=== PATIENT | female | born 1975 | race Caucasian/White ===

== ENCOUNTER 2017-09-07 07:11 | Inpatient (IN) ==
[2017-09-07] MEDS ORDERED: 0.9 % Sodium Chloride 1,000 ML IVC ONE (07:30)
[2017-09-07] MEDS ORDERED: Ondansetron 4 MG/2 ML VIAL IVP ONE ×2 (07:30→09:41)
[2017-09-07 08:01] LABS: Bilirubin,Urine Small (Negative); Blood,Urine Moderate (Negative); Clarity,Urine Turbid (Clear); Color,Urine Yellow (Yellow); Glucose,Urine (UA) >=1000 mg/dL (Normal); Ketones,Urine 80 mg/dL (Negative); Leukocyte Esterase,Urine Large (Negative); Nitrite,Urine Negative (Negative); PH,Urine 5.5 pH Units (5.0-8.0); Protein,Urine >=300 mg/dL (Neg-Trace); Specific Gravity,Urine > 1.030 (1.010-1.025); Urobilinogen,Urine Normal (Normal)
[2017-09-07 08:02] LABS: Bacteria,Urine Few per hpf (None-Few); Hyaline Casts,Urine Few per lpf (None-Few); Squamous Epithelial Cell,Urine Many per lpf (None-Few); WBC,Urine TNTC per hpf (0-3)
[2017-09-07 08:23] LABS: Basophils % 0.5 %; Eosinophils # 0.1 K/mcL (0.0-0.6); Eosinophils % 0.7 %; Hematocrit 39.9 % (35.3-44.9); Hemoglobin 13.7 g/dL (11.5-15.4); Immature Granulocytes % 0.5 % (0-4); Lymphocytes % 22.3 %; Mean Corpuscular HGB Conc 34.3 g/dL (31.6-35.5); Mean Corpuscular Hemoglobin 28.8 pg (28.0-33.3); Mean Platelet Volume 10.8 fL (9.4-12.4); Monocytes # 0.4 K/mcL (0.0-1.3); Neutrophils # 6.3 K/mcL (1.6-8.9); Platelet Count 208 K/mcL (140-400); Red Blood Count 4.75 M/mcL (3.82-4.97); Red Cell Distribution Width 11.9 % (11.5-14.5)
[2017-09-07 08:31] LABS: Beta-Hydroxybutyric Acid > 2.00 mmol/L (0.02-0.27)
[2017-09-07 08:39] LABS: Alanine Aminotransferase 62 Units/L (0-55); Albumin 3.5 g/dL (3.5-5.0); Alkaline Phosphatase 231 Units/L (38-126); Aspartate Amino Transferase 30 Units/L (5-34); BUN/Creatinine Ratio 13 (6-26); Bilirubin,Direct 0.3 mg/dL (0.0-0.5); Bilirubin,Indirect 0.5 mg/dL (0.0-1.2); Bilirubin,Total 0.8 mg/dL (0.2-1.2); Blood Urea Nitrogen 14 mg/dL (7-20); Calcium 9.2 mg/dL (8.6-10.8); Carbon Dioxide 26 mEq/L (19-29); Chloride 98 mEq/L (98-109); Globulin 3.6 g/dL (2.4-3.5); Glucose 398 mg/dL (70-99); Osmolality,Calculated 303 (280-300); Potassium 3.9 mEq/L (3.5-4.5); Sodium 138 mEq/L (136-145); Total Protein 7.1 g/dL (6.0-8.3); eGFR For African Americans > 60 (> 60); eGFR For Non-African Americans 55 (> 60)
[2017-09-07] MEDS ORDERED: *HR* FentaNYL (PF) 100 MCG/2 ML VIAL IVP ONE (08:40)
[2017-09-07] MEDS ORDERED: Insulin Human Regular 10 UNIT in 0.9 % Sodium Chloride 10 ML IV ONE (09:30)
--- NOTE | 2017-09-07 09:33 | Emergency Department Note ---
Disposition Clinical Impression: UTI (urinary tract infection) Disposition: Admitted As Inpatient Condition: Fair Referrals: Adilson Abdullahi, EFREN [Primary Care Provider] - Time of Disposition: 09:25 Abdominal Pain HPI - General Chief Complaint: ED Abdominal Pain Stated Complaint: "i cant stop getting SICK"/abd pain/NV Time Seen by Provider: 09/07/17 07:17 Source: patient Mode of arrival: ambulatory Limitations: no limitations Nursing Notes Reviewed: Yes Vital Signs Reviewed: Yes - History of Present Illness HPI Narrative: 42-year-old female presents to emergency Department with concerns of persistent nausea, vomiting, left lower quadrant abdominal pain. Patient states symptoms have been intermittent over the past week. This is her third visit to the emergency department for evaluation of her pain. She was initially diagnosed with a urinary tract infection, treated with ceftriaxone and Keflex, she finished her Keflex 2-3 days ago. She was seen yesterday emergency department for same symptoms, given Phenergan fluids with improvement of her nausea and she returned home. Today she states she is unable to keep down food or fluids secondary to nausea and pain. Patient reports pain is sharp and stabbing in the left lower quadrant without radiation. She denies hematochezia, melena, diarrhea, chest pain, shortness of breath, palpitations, syncope. Patient denies vaginal bleeding or vaginal discharge. Pain Scale: 9 - Related Data Home Medications Medication Instructions Recorded Confirmed Cyclobenzaprine [Flexeril] 10 mg PO TID 05/25/16 05/25/16 Insulin ASPART [Novolog] 6 unit SQ TIDAC MDD per sliding 05/25/16 05/25/16 scale Insulin Glargine [Lantus] 12 unit SQ BID 05/25/16 05/25/16 Dextroamphetamine/Amphetamine 20 mg PO BID 05/26/16 05/26/16 [Dextroamp-Amphetamin 20 mg Tab] Esomeprazole Magnesium [Nexium] 40 mg PO DAILY 05/26/16 05/26/16 Venlafaxine HCl [Venlafaxine HCl 150 mg PO DAILY 05/26/16 05/26/16 ER] diazePAM [Valium] 5 mg PO Q12HR PRN 05/26/16 05/26/16 Previous Rx's Medication Instructions Recorded Cefdinir [Omnicef] 300 mg PO BID #14 capsule 07/05/16 Promethazine [Phenergan] 25 mg PO Q8HR PRN #10 tablet 01/01/17 Promethazine [Phenergan] 25 mg PO Q8HR PRN #10 tablet 08/01/17 Cephalexin [Keflex] 500 mg PO BID #14 capsule 08/30/17 Ondansetron HCl [Zofran] 4 mg PO TID #21 tablet 08/30/17 Promethazine [Phenergan] 25 mg PO Q6HR #20 tablet 09/06/17 Allergies Allergy/AdvReac Type Severity Reaction Status Date / Time ketorolac [From Toradol] Allergy Hives Verified 09/07/17 07:14 levofloxacin [From Levaquin] Allergy Hives Verified 09/07/17 07:14 Penicillins [PCN] Allergy Hives Verified 09/07/17 07:14 Sulfa (Sulfonamide Allergy Swelling Verified 09/07/17 07:14 Antibiotics) of Lip/Tongue/Throat sumatriptan [From Imitrex] Allergy Swelling Verified 09/07/17 07:14 of Lip/Tongue/Throat metoclopramide [From Reglan] AdvReac Nausea Verified 09/07/17 07:14 ondansetron AdvReac Nausea Verified 09/07/17 07:14 [From Zofran (as hydrochloride)] All systems ED: reviewed and negative except as stated. Review of Systems: As Per HPI Constitutional: Denies: fever, chills, weakness Cardiovascular: Denies: chest pain, palpitations Respiratory: Denies: cough, dyspnea, wheezes Gastrointestinal: Reports: abdominal pain, nausea, vomiting. 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 Psychiatric history: Reports: ADHD, depression - Social History Smoking status: Never smoker Alcohol use: Reports: none Drug use: Reports: none Physical Exam General: Alert and in no acute distress Skin: Warm, dry, intact Head: Normocephalic and atraumatic Neck: Supple, trachea midline and no tenderness Cardiovascular: RRR, no murmur, normal perfusion Respiratory: CTAB, no wheezing, cough, or respiratory distress Musculoskeletal: Normal strength, no tenderness, swelling or deformity GI: Soft, tenderness to palpation of the left lower quadrant without evidence of rigidity, guarding, or rebound. nondistended. Bowel sounds present Neuro: A&O to person, place, time and situation. No focal deficits noted on exam Psychiatric: cooperative and appropriate mood and affect. - General Limitations: no limitations General appearance: alert Course Vital Signs Temperature 98.2 F 09/07/17 07:14 Pulse Rate 128 09/07/17 07:14 Respiratory Rate 20 09/07/17 07:14 Blood Pressure 115/78 09/07/17 07:14 O2 Sat by Pulse Oximetry 96 09/07/17 07:14 Temperature 98.2 F 09/07/17 07:14 Pulse Rate 118 09/07/17 09:22 Respiratory Rate 22 09/07/17 07:58 Blood Pressure 145/78 09/07/17 09:22 O2 Sat by Pulse Oximetry 96 09/07/17 09:22 Oxygen Delivery Oxygen Delivery Room Air Abdominal Pain - MDM Narrative Medical decision making narrative: CT of the abdomen shows possible mild colitis versus lack of distention of the sigmoid colon. Patient does not have hematochezia or diarrhea. Patient will be treated as a urinary tract infection. She has an anion gap of 14 however she has an elevated beta hydroxybutyric acid level. Patient will be treated with insulin and IV fluids while being treated for her UTI. Patient comfortable with the plan for admission to hospital for further care and evaluation. - Medical Records Medical records reviewed: Yes I reviewed the patient's medical records. - Lab Data Lab results reviewed: Yes I reviewed the patient's lab results. Result diagrams: 09/07/17 08:15 09/07/17 08:15 Lab Results 09/07/17 09/07/17 09/07/17 Range/Units 07:45 08:15 08:15 WBC 8.9 (4.3-11.1) K/mcL RBC 4.75 (3.82-4.97) M/mcL Hgb 13.7 (11.5-15.4) g/dL Hct 39.9 (35.3-44.9) % MCV 84.0 (83.0-100.0) fL MCH 28.8 (28.0-33.3) pg MCHC 34.3 (31.6-35.5) g/dL RDW 11.9 (11.5-14.5) % Plt Count 208 (140-400) K/mcL MPV 10.8 (9.4-12.4) fL Immature Gran % 0.5 (0-4) % Seg Neutrophils % 71.0 % Lymphocytes % 22.3 % Monocytes % 5.0 % Eosinophils % 0.7 % Basophils % 0.5 % Neutrophils # 6.3 (1.6-8.9) K/mcL Lymphocytes # 2.0 (0.6-4.6) K/mcL Monocytes # 0.4 (0.0-1.3) K/mcL Eosinophils # 0.1 (0.0-0.6) K/mcL Basophils # 0.0 (0.0-0.2) K/mcL Sodium 138 (136-145) mEq/L Potassium 3.9 (3.5-4.5) mEq/L Chloride 98 (98-109) mEq/L Carbon Dioxide 26 (19-29) mEq/L BUN 14 (7-20) mg/dL Creatinine 1.10 (0.57-1.11) mg/dL Est GFR ( Amer) > 60 (> 60) Est GFR (Non-Af Amer) 55 L (> 60) BUN/Creatinine Ratio 13 (6-26) Glucose 398 H (70-99) mg/dL Calculated Osmolality 303 H (280-300) Calcium 9.2 (8.6-10.8) mg/dL Total Bilirubin 0.8 (0.2-1.2) mg/dL Direct Bilirubin 0.3 (0.0-0.5) mg/dL Indirect Bilirubin 0.5 (0.0-1.2) mg/dL AST 30 (5-34) Units/L ALT 62 H (0-55) Units/L Alkaline Phosphatase 231 H (38-126) Units/L Serum Total Protein 7.1 (6.0-8.3) g/dL Albumin 3.5 (3.5-5.0) g/dL Globulin 3.6 H (2.4-3.5) g/dL Albumin/Globulin Ratio 1.0 L (1.1-2.2) Beta-Hydroxybutyric Acd > 2.00 H (0.02-0.27) mmol/L Urine Color Yellow (Yellow) Urine Clarity Turbid A (Clear) Urine pH 5.5 (5.0-8.0) pH Units Ur Specific [place] > 1.030 H (1.010-1.025) Urine Protein >=300 H (Neg-Trace) mg/dL Urine Glucose (UA) >=1000 H (Normal) mg/dL Urine Ketones 80 H (Negative) mg/dL Urine Blood Moderate H (Negative) Urine Nitrite Negative (Negative) Urine Bilirubin Small H (Negative) Urine Urobilinogen Normal (Normal) mg/dL Ur Leukocyte Esterase Large H (Negative) Urine Microscopic RBC 3-5 H (0-3) per hpf Urine Microscopic WBC TNTC H (0-3) per hpf Ur Squamous Epith Cells Many H (None-Few) per lpf Urine Bacteria Few (None-Few) per hpf Hyaline Casts Few (None-Few) per lpf Ur Culture Indicated? YES A (NO) - Radiology Data Radiology results reviewed: Yes I reviewed the patient's radiology results.
--- NOTE | 2017-09-07 10:44 | Internal Med History&Physical ---
Date of Encounter: 09/07/17 Time of Encounter: 10:42 Assessment and Plan (1) Acute cystitis with hematuria Current visit: Yes Status: Acute Urinalysis positive for leukocyte esterase and WBC, consistent with UTI. Additionally patient reports urinary frequency. She had a course of ceftriaxone followed by Kedhaval and her symptoms did not improve. Her urine culture from 08/30/2017 grew Escherichia coli sensitive to ceftriaxone however due to failure of previous outpatient treatment with cephalosporins I will initiate therapy with aztreonam. She does have allergies to penicillin and Levaquin and adverse reaction to Flagyl. We will follow current urine culture and sensitivities and adjust antibiotic therapy accordingly. (2) Sepsis Current visit: Yes Status: Acute Diagnosis based on tachycardia, tachypnea and UTI. We will obtain lactic acid stent. Follow-up urine culture and sensitivities, we will obtain blood cultures. Follow temperature curve and WBC trend. Additionally possible source could be colitis given left lower quadrant pain and CT abdomen and pelvis findings. We will treat with aztreonam which should cover both colitis and UTI. Qualifiers: Sepsis type: Escherichia coli Qualified Code(s): A41.51 - Sepsis due to Escherichia coli [E. coli] (3) Abdominal pain Current visit: No Status: Acute She states that the pain was not controlled with IV fentanyl. We will prescribe IV Dilaudid while she is nothing by mouth. IV Zofran and Phenergan for intractable nausea and vomiting. Qualifiers: Abdominal location: left lower quadrant Qualified Code(s): R10.32 - Left lower quadrant pain (4) Uncontrolled type 1 diabetes mellitus Current visit: Yes Status: Acute Initial workup was positive for beta hydroxybutyrate. Anion gap is 14 however serum bicarbonate is within normal range. I suspect starvation ketosis secondary to intractable vomiting and not DKA. Patient received fluids and a bolus of IV insulin in the emergency department. We will start treatment with Levemir and Humalog. We will check hemoglobin A1c. Recheck Chem-7 to ensure that the patient does not progress to DKA due to severe infection. Qualifiers: Diabetes mellitus complication status: with hyperglycemia Qualified Code(s) : E10.65 - Type 1 diabetes mellitus with hyperglycemia Internal Medicine - H&P: HPI Chief complaint: Abdominal pain Admitted From: Emergency Dept Plans for Post Hospital Care: Home History of present illness: Ms. Fish is a 42 year old female with past medical history significant for type 1 diabetes who presented to the hospital for evaluation of abdominal pain. She reports 10 out of 10 left lower quadrant sharp, stabbing abdominal pain with no radiation, associated with increased urinary frequency and intractable nausea and vomiting. Her symptoms have been going on for one week. She presented to the emergency department twice prior to today's visit and she was treated with ceftriaxone in the ED and completed a course of Keflex. She states that her symptoms continue to get worse. A 10 point review of systems was otherwise negative Past medical history as above Surgical history: Cholecystectomy, laser eye surgery and hysterectomy Family history: Negative for premature coronary artery disease in both parents. Social history: Denies tobacco alcohol and drug use. Past Med Surg Social Fam HX - Past Medical History Medical history: diabetes, migraine Psychiatric history: ADHD, depression - Past Surgical History Surgical History: cholecystectomy, hysterectomy, other (Gastric pacer) - Social History Smoking Status: Never smoker Smokeless Tobacco Status: No Alcohol use: none Drug use: none - Family History Mother Living Status: Still Living Hx Family Respiratory Disorders: Yes Father Living Status: Hx Family Cardiac Disorders: Yes Internal Medicine - H&P: Meds Cyclobenzaprine [Flexeril] 10 mg PO TID 05/25/16 [History] Insulin ASPART [Novolog] 7 unit SQ TIDAC 05/25/16 [History] Insulin Glargine [Lantus] 12 unit SQ BID 05/25/16 [History] Dextroamphetamine/Amphetamine [Dextroamp-Amphetamin 20 mg Tab] 20 mg PO BID 02/06 [History] Esomeprazole Magnesium [Nexium] 40 mg PO DAILY 05/26/16 [History] Venlafaxine HCl [Venlafaxine HCl ER] 150 mg PO DAILY 05/26/16 [History] diazePAM [Valium] 5 mg PO Q12HR PRN 05/26/16 [History] Aspirin [Lo-Dose Aspirin EC] 81 mg PO DAILY 09/07/17 [History] Atorvastatin [Lipitor] 20 mg PO DAILY 09/07/17 [History] Furosemide [Lasix] 20 mg PO BID 09/07/17 [History] Gabapentin [Neurontin] 800 mg PO QID 09/07/17 [History] OxyCODONE/APAP 5/325 [Percocet 5/325 MG] 1 tab PO Q6H PRN 09/07/17 [History] Propranolol HCl [Innopran Xl] 120 mg PO DAILY 09/07/17 [History] 3 Allergy/AdvReac Type Severity Reaction Status Date / Time ketorolac [From Toradol] Allergy Hives Verified 09/07/17 07:14 levofloxacin [From Levaquin] Allergy Hives Verified 09/07/17 07:14 Penicillins [PCN] Allergy Hives Verified 09/07/17 07:14 Sulfa (Sulfonamide Allergy Swelling Verified 09/07/17 07:14 Antibiotics) of Lip/Tongue/Throat sumatriptan [From Imitrex] Allergy Swelling Verified 09/07/17 07:14 of Lip/Tongue/Throat metoclopramide [From Reglan] AdvReac Nausea Verified 09/07/17 07:14 ondansetron AdvReac Nausea Verified 09/07/17 07:14 [From Zofran (as hydrochloride)] All Systems PM: A 10-system review of systems was performed and is negative for pertinent findings except as documented above in the HPI. - Constitutional Vitals: Temp Pulse Resp BP Pulse Ox 98.2 F 108 15 127/75 96 09/07/17 07:14 09/07/17 10:21 09/07/17 10:28 09/07/17 10:28 09/07/17 10:21 General appearance: Present: mild distress, A&O X 3 - Eye Eye exam: Present: PERRL, conjuntiva pink, sclera anicteric Pupils: Present: PERRL - Respiratory Respiratory exam: Present: CTAB. Absent: accessory muscle use, rales, rhonchi, wheezes - Cardiovascular Cardiovascular exam: Present: RRR, +S1, +S2. Absent: diastolic murmur, gallop, rubs, systolic murmur - GI/Abdominal GI/Abdominal exam: Present: normal bowel sounds, soft, tenderness (Tender to palpation in the left lower quadrant with no guarding or rebound tenderness.), no peritoneal signs. Absent: distended - Extremities Exam Extremities exam: Present: warm, radial pulses palpable and symmetrical. Absent : calf tenderness, cyanotic, pedal edema - Skin Skin exam: Present: dry, intact Internal Med - H&P Results - Labs CBC & Chem 7: 09/07/17 08:15 09/07/17 08:15
[2017-09-07] MEDS ORDERED: Acetaminophen 325 MG TABLET PO PRN (11:08)
[2017-09-07] MEDS ORDERED: *HR* OxyCODONE Immed Rel 5 MG TABLET PO PRN (11:08)
[2017-09-07] MEDS ORDERED: Naloxone 0.4 MG/ML INJ IVP PRN (11:08)
[2017-09-07] MEDS ORDERED: *HR* Dextrose 50 % in Water (Syg) 50 ML SYRINGE IVP PRN (11:13)
[2017-09-07] MEDS ORDERED: Dextrose Gel 15 GM PO PRN ×2 (11:13)
[2017-09-07] MEDS ORDERED: diazePAM 5 MG TABLET PO PRN (11:14)
[2017-09-07] MEDS: Insulin DETEMIR 100 UNIT/ML X5UNITS SQ SCH ×2 (12:06→21:34)
[2017-09-07] MEDS: Gabapentin 400 MG CAPSULE PO SCH ×3 (12:07→20:54)
[2017-09-07] MEDS: *HR* HYDROmorphone (PF) 1 MG/ML SYRINGE IVP PRN ×3 (12:07→20:56)
[2017-09-07] MEDS: 0.9 % Sodium Chloride 1,000 ML IVC SCH ×2 (12:07→20:53)
[2017-09-07 12:14] LABS: INR 1.1; Prothrombin Time 12.1 Seconds (9.4-12.1)
[2017-09-07 12:17] LABS: Activated Partial Thrombo Time 24.5 Seconds (26.0-36.0)
[2017-09-07 12:19] LABS: Hemoglobin A1C 11.5 %
[2017-09-07 12:21] LABS: BUN/Creatinine Ratio 13 (6-26); Blood Urea Nitrogen 12 mg/dL (7-20); Calcium 8.5 mg/dL (8.6-10.8); Carbon Dioxide 29 mEq/L (19-29); Chloride 101 mEq/L (98-109); Glucose 330 mg/dL (70-99); Osmolality,Calculated 297 (280-300); Potassium 3.6 mEq/L (3.5-4.5); Sodium 137 mEq/L (136-145); eGFR For African Americans > 60 (> 60); eGFR For Non-African Americans > 60 (> 60)
[2017-09-07] MEDS: Insulin LISPRO 300 UNITS/3 ML VIAL SQ SCH ×2 (13:17→17:50)
[2017-09-07] MEDS: *HR* Promethazine 25 MG/ML VIAL IVP PRN ×2 (15:20→21:03)
[2017-09-07] MEDS: Aztreonam 2,000 MG in D5% in Water (Mini-Bag+) 100 ML IVPB SCH ×2 (16:23→23:42)
[2017-09-07] MEDS: Famotidine 20 MG/2 ML VIAL IVP SCH (17:47)
[2017-09-08 04:27] LABS: Basophils % 0.6 %; Eosinophils # 0.1 K/mcL (0.0-0.6); Hematocrit 35.7 % (35.3-44.9); Immature Granulocytes % 0.6 % (0-4); Lymphocytes # 2.4 K/mcL (0.6-4.6); Lymphocytes % 34.6 %; Mean Corpuscular HGB Conc 32.8 g/dL (31.6-35.5); Mean Corpuscular Hemoglobin 28.7 pg (28.0-33.3); Mean Corpuscular Volume 87.5 fL (83.0-100.0); Mean Platelet Volume 11.2 fL (9.4-12.4); Monocytes # 0.6 K/mcL (0.0-1.3); Monocytes % 8.2 %; Neutrophils # 3.8 K/mcL (1.6-8.9); Nucleated Red Blood Cells 0.3 /100 WBC (0); Platelet Count 185 K/mcL (140-400); Red Blood Count 4.08 M/mcL (3.82-4.97)
[2017-09-08 04:35] LABS: Hemoglobin 11.7 g/dL (11.5-15.4)
[2017-09-08 04:51] LABS: Calcium 8.3 mg/dL (8.6-10.8); Potassium 3.8 mEq/L (3.5-4.5)
[2017-09-08] MEDS: *HR* Enoxaparin 40 MG/0.4 ML SYRINGE SQ SCH (05:13)
[2017-09-08] MEDS: Famotidine 20 MG/2 ML VIAL IVP SCH ×2 (05:13→16:32)
[2017-09-08] MEDS: *HR* HYDROmorphone (PF) 1 MG/ML SYRINGE IVP PRN ×3 (05:21→21:20)
[2017-09-08] MEDS: *HR* Promethazine 25 MG/ML VIAL IVP PRN ×3 (05:21→21:10)
[2017-09-08] MEDS ORDERED: Insulin LISPRO 300 UNITS/3 ML VIAL SQ STA (06:17)
[2017-09-08] MEDS: Aztreonam 2,000 MG in D5% in Water (Mini-Bag+) 100 ML IVPB SCH ×2 (08:20→16:31)
[2017-09-08] MEDS: Gabapentin 400 MG CAPSULE PO SCH ×4 (08:20→21:10)
[2017-09-08] MEDS: Venlafaxine XR (24 HR) 150 MG CAP.ER.24H PO SCH (08:20)
[2017-09-08] MEDS: Propranolol LA (24 HR) 60 MG CAP.SA.24H PO SCH (08:20)
[2017-09-08] MEDS: Insulin DETEMIR 100 UNIT/ML X5UNITS SQ SCH ×2 (09:25→21:10)
[2017-09-08] MEDS: D5% in Water 1,000 ML IVC PRN ×2 (11:29→16:35)
--- NOTE | 2017-09-08 16:28 | Internal Med Progress Note ---
Date of Encounter: 09/08/17 Time of Encounter: 16:28 - Assessment and plan (1) Colitis Current Visit: Yes Status: Acute Assessment and plan: Clinically improving continue IV abx at this time will start clear liquid diet anti emetics as needed (2) UTI (urinary tract infection) Current Visit: Yes Status: Acute Assessment and plan: Hematuria resolved history of failed outpatient therapy will continue IV abx Qualifiers: Urinary tract infection type: acute cystitis Hematuria presence: with hematuria Qualified Code(s): N30.01 - Acute cystitis with hematuria (3) Sepsis Current Visit: Yes Status: Resolved Qualifiers: Sepsis type: Escherichia coli Qualified Code(s): A41.51 - Sepsis due to Escherichia coli [E. coli] (4) Uncontrolled type 1 diabetes mellitus Current Visit: Yes Status: Acute Assessment and plan: uncontrolled DM HbA1C: 11.5 continue basal insulin sliding scale insulin algorithm as needed monitor FS and BG Qualifiers: Diabetes mellitus complication status: with hyperglycemia Qualified Code(s) : E10.65 - Type 1 diabetes mellitus with hyperglycemia (5) DVT prophylaxis Current Visit: No Status: Acute Assessment and plan: Lovenox SQ (6) Obesity (BMI 30-39.9) Current Visit: Yes Status: Chronic - Subjective Interval history: Patient seen and examined at bedside. Resting in bed and reports of improvement in her symptoms from previous day. Improvement in nausea and denies any vomiting. Denies any abd pain at this time. Reports of feeling hungry - Constitutional Vitals: Temp Pulse Resp BP Pulse Ox 98.1 F 78 14 129/84 94 09/08/17 16:23 09/08/17 16:23 09/08/17 16:23 09/08/17 16:23 09/08/17 16:23 General appearance: Present: A&O X 3, no acute distress, obese - Head Head exam: Present: atraumatic, normocephalic - Eye Eye exam: Present: conjuntiva pink, sclera anicteric - Respiratory Respiratory exam: Present: CTAB. Absent: accessory muscle use, rales, rhonchi, wheezes - Cardiovascular Cardiovascular exam: Present: RRR, +S1, +S2. Absent: diastolic murmur, gallop, rubs, systolic murmur - GI/Abdominal GI/Abdominal exam: Present: normal bowel sounds, soft, no peritoneal signs. Absent: distended, tenderness - Extremities Exam Extremities exam: Present: warm, radial pulses palpable and symmetrical. Absent : calf tenderness, cyanotic, pedal edema - Back Exam Back exam: Present: CVA tenderness (L) - Neurological Exam Neurological exam: Present: alert, oriented X3 Internal Medicine: Result - Labs CBC & Chem 7: 09/08/17 03:35 09/08/17 03:35 Labs: Short CBC 09/08/17 Range/Units 03:35 WBC 7.1 (4.3-11.1) K/mcL Hgb 11.7 D (11.5-15.4) g/dL Hct 35.7 (35.3-44.9) % Plt Count 185 (140-400) K/mcL Neutrophils # 3.8 (1.6-8.9) K/mcL BMP 09/08/17 03:35 Sodium 140 Potassium 3.8 Chloride 106 Carbon Dioxide 27 BUN 14 Creatinine 1.35 H Glucose 172 H Calcium 8.3 L - ABG Interpretation ABG results: PT/INR, D-dimer PT 12.1 Seconds (9.4-12.1) 09/07/17 11:57 Consult Discharge Plan - Plan Referrals: Adilson Abdullahi, DIRECTOR [employer]ARS [Primary Care Provider] -
[2017-09-08] MEDS ORDERED: Dextrose Gel 15 GM PO PRN ×2 (16:34)
[2017-09-08] MEDS ORDERED: D5% in Water 1,000 ML IVC PRN (16:34)
[2017-09-08] MEDS ORDERED: *HR* Dextrose 50 % in Water (Syg) 50 ML SYRINGE IVP PRN (16:34)
[2017-09-08] MEDS: 0.9 % Sodium Chloride 1,000 ML IVC SCH (16:42)
[2017-09-08] MEDS ORDERED: Insulin LISPRO 300 UNITS/3 ML VIAL SQ SCH (21:00)
[2017-09-09] MEDS: Aztreonam 2,000 MG in D5% in Water (Mini-Bag+) 100 ML IVPB SCH ×2 (00:35→09:04)
[2017-09-09] MEDS: *HR* Promethazine 25 MG/ML VIAL IVP PRN ×3 (03:06→16:54)
[2017-09-09] MEDS: *HR* HYDROmorphone (PF) 1 MG/ML SYRINGE IVP PRN ×4 (03:07→21:38)
[2017-09-09 03:57] LABS: Basophils # 0.1 K/mcL (0.0-0.2); Basophils % 0.6 %; Eosinophils # 0.3 K/mcL (0.0-0.6); Eosinophils % 3.6 %; Hematocrit 33.8 % (35.3-44.9); Hemoglobin 11.2 g/dL (11.5-15.4); Immature Granulocytes % 0.4 % (0-4); Lymphocytes # 3.5 K/mcL (0.6-4.6); Lymphocytes % 43.7 %; Mean Corpuscular HGB Conc 33.1 g/dL (31.6-35.5); Mean Corpuscular Hemoglobin 28.4 pg (28.0-33.3); Mean Corpuscular Volume 85.6 fL (83.0-100.0); Mean Platelet Volume 11.4 fL (9.4-12.4); Monocytes # 0.6 K/mcL (0.0-1.3); Monocytes % 7.2 %; Neutrophils # 3.6 K/mcL (1.6-8.9); Platelet Count 183 K/mcL (140-400); Red Blood Count 3.95 M/mcL (3.82-4.97); Red Cell Distribution Width 11.5 % (11.5-14.5); Segmented Neutrophils % 44.5 %
[2017-09-09 04:16] LABS: BUN/Creatinine Ratio 14 (6-26); Blood Urea Nitrogen 12 mg/dL (7-20); Calcium 8.6 mg/dL (8.6-10.8); Carbon Dioxide 29 mEq/L (19-29); Chloride 104 mEq/L (98-109); Glucose 93 mg/dL (70-99); Magnesium 1.6 mg/dL (1.6-2.6); Osmolality,Calculated 283 (280-300); Phosphorous 2.6 mg/dL (2.3-4.7); Potassium 3.6 mEq/L (3.5-4.5); Sodium 137 mEq/L (136-145); eGFR For African Americans > 60 (> 60); eGFR For Non-African Americans > 60 (> 60)
[2017-09-09] MEDS: *HR* Enoxaparin 40 MG/0.4 ML SYRINGE SQ SCH (05:10)
[2017-09-09] MEDS: Famotidine 20 MG/2 ML VIAL IVP SCH (05:11)
[2017-09-09] MEDS: Insulin LISPRO 300 UNITS/3 ML VIAL SQ SCH ×3 (08:58→16:59)
[2017-09-09] MEDS: Venlafaxine XR (24 HR) 150 MG CAP.ER.24H PO SCH (09:04)
[2017-09-09] MEDS: Gabapentin 400 MG CAPSULE PO SCH ×4 (09:04→21:31)
[2017-09-09] MEDS: Propranolol LA (24 HR) 60 MG CAP.SA.24H PO SCH (09:04)
[2017-09-09] MEDS: Insulin DETEMIR 100 UNIT/ML X5UNITS SQ SCH ×2 (09:15→21:31)
[2017-09-09] MEDS: 0.9 % Sodium Chloride 1,000 ML IVC SCH (11:30)
[2017-09-09] MEDS ORDERED: Insulin LISPRO 300 UNITS/3 ML VIAL SQ SCH (12:24)
--- NOTE | 2017-09-09 13:41 | Internal Med Progress Note ---
Date of Encounter: 09/09/17 Time of Encounter: 13:39 - Assessment and plan (1) Sepsis Current Visit: Yes Status: Resolved Assessment and plan: Presented with tachycardia and mild leukocytosis, likely related to dehydration and colitis. Blood and urine cultures remain negative. IV antibiotics as below. Qualifiers: Sepsis type: sepsis due to unspecified organism Qualified Code(s): A41.9 - Sepsis, unspecified organism (2) Colitis Current Visit: Yes Status: Acute Assessment and plan: Patient presented with tachycardia, tachypnea and left lower abdominal pain. CT abdomen/pelvis suggestive of mild sigmoid colitis. Has been started on IV aztreonam due to reported allergies to fluoroquinolones and penicillins. Will try IV Levaquin with Benadryl along with IV clindamycin due to allergies to penicillin and Flagyl. Patient's tachycardia was likely related to dehydration due to persistent nausea and vomiting. SIRS currently improved. (3) UTI (urinary tract infection) Current Visit: Yes Status: Ruled-out Assessment and plan: Urinalysis showed large leukocyte esterase, too numerous to count WBC but few bacteria. Urine culture shows no growth. Patient was started on IV antibiotics due to suspected UTI. Qualifiers: Urinary tract infection type: acute cystitis Hematuria presence: with hematuria Qualified Code(s): N30.01 - Acute cystitis with hematuria (4) Diabetes Current Visit: Yes Status: Chronic Assessment and plan: Patient is noted to have medical noncompliance. Blood sugars noted to be better controlled now. Continue basal bolus insulin regimen. Diabetic diet. Accu-Chek blood glucose monitoring. Qualifiers: Diabetes mellitus type: type 1 Diabetes mellitus complication status: with hyperglycemia Qualified Code(s): E10.65 - Type 1 diabetes mellitus with hyperglycemia (5) Depression Current Visit: Yes Status: Chronic Qualifiers: Depression Type: unspecified Qualified Code(s): F32.9 - Major depressive disorder, single episode, unspecified - Subjective Interval history: Feels better; improved nausea, vomiting, reports mild left lower abdominal pain. No diarrhea. fever/chills. - Constitutional Vitals: Temp Pulse Resp BP Pulse Ox 98.0 F 82 16 92/55 92 09/09/17 10:45 09/09/17 10:45 09/09/17 10:45 09/09/17 10:45 09/09/17 10:45 General appearance: Present: A&O X 3, answers questions appropriately - Respiratory Respiratory exam: Present: CTAB. Absent: accessory muscle use, rales, rhonchi, wheezes - Cardiovascular Cardiovascular exam: Present: RRR, +S1, +S2. Absent: diastolic murmur, gallop, rubs, systolic murmur - GI/Abdominal GI/Abdominal exam: Present: normal bowel sounds, soft, no peritoneal signs. Absent: distended, tenderness - Extremities Exam Extremities exam: Present: full ROM, warm, radial pulses palpable and symmetrical. Absent: calf tenderness, cyanotic, pedal edema Internal Medicine: Result - Labs CBC & Chem 7: 09/09/17 03:12 09/09/17 03:12 Labs: Short CBC 09/09/17 Range/Units 03:12 WBC 8.0 (4.3-11.1) K/mcL Hgb 11.2 L (11.5-15.4) g/dL Hct 33.8 L (35.3-44.9) % Plt Count 183 (140-400) K/mcL Neutrophils # 3.6 (1.6-8.9) K/mcL BMP 09/09/17 03:12 Sodium 137 Potassium 3.6 Chloride 104 Carbon Dioxide 29 BUN 12 Creatinine 0.84 Glucose 93 Calcium 8.6 - ABG Interpretation ABG results: PT/INR, D-dimer PT 12.1 Seconds (9.4-12.1) 09/07/17 11:57 Consult Discharge Plan - Plan Referrals: Adilson Abdullahi, MOP WORKER [Primary Care Provider] -
[2017-09-09] MEDS: Levofloxacin 500 MG/100 ML 500 MG/100 ML BAG IVPB SCH (14:27)
[2017-09-09] MEDS: Clindamycin 300 MG in D5% in Water 50 ML IVPB SCH (16:54)
[2017-09-10] MEDS: Clindamycin 300 MG in D5% in Water 50 ML IVPB SCH ×2 (00:26→10:52)
[2017-09-10] MEDS: *HR* Promethazine 25 MG/ML VIAL IVP PRN ×2 (00:32→09:05)
[2017-09-10] MEDS: *HR* Enoxaparin 40 MG/0.4 ML SYRINGE SQ SCH (06:18)
[2017-09-10] MEDS: *HR* HYDROmorphone (PF) 1 MG/ML SYRINGE IVP PRN (06:50)
[2017-09-10] MEDS: Levofloxacin 500 MG/100 ML 500 MG/100 ML BAG IVPB SCH (09:03)
[2017-09-10] MEDS: Venlafaxine XR (24 HR) 150 MG CAP.ER.24H PO SCH (09:04)
[2017-09-10] MEDS: Propranolol LA (24 HR) 60 MG CAP.SA.24H PO SCH (09:04)
[2017-09-10] MEDS: Insulin LISPRO 300 UNITS/3 ML VIAL SQ SCH ×2 (09:05→13:00)
[2017-09-10] MEDS: Gabapentin 400 MG CAPSULE PO SCH ×2 (09:05→12:59)
[2017-09-10] MEDS: Insulin DETEMIR 100 UNIT/ML X5UNITS SQ SCH (09:20)
[2017-09-10 11:03] VITALS: BP 120/78
--- NOTE | 2017-09-10 13:28 | Discharge Summary ---
Date of Encounter: 09/10/17 Time of Encounter: 13:24 - Discharge Diagnosis (1) Sepsis Priority: Primary Status: Resolved Qualifiers: Sepsis type: sepsis due to unspecified organism Qualified Code(s): A41.9 - Sepsis, unspecified organism (2) Colitis Priority: Primary Status: Acute (3) UTI (urinary tract infection) Priority: Primary Status: Ruled-out Qualifiers: Urinary tract infection type: acute cystitis Hematuria presence: with hematuria Qualified Code(s): N30.01 - Acute cystitis with hematuria (4) Diabetes Priority: Secondary Status: Chronic Qualifiers: Diabetes mellitus type: type 1 Diabetes mellitus complication status: with hyperglycemia Qualified Code(s): E10.65 - Type 1 diabetes mellitus with hyperglycemia (5) Depression Priority: Secondary Status: Chronic Qualifiers: Depression Type: unspecified Qualified Code(s): F32.9 - Major depressive disorder, single episode, unspecified - Discharge Medications Prescriptions: Clindamycin HCl 300 mg PO Q6H #20 capsule DiphenhydraMINE [Benadryl] 25 mg PO DAILY PRN #10 capsule PRN Reason: Itching Lactobacillus Acidophilus [Acidophilus] 1 each PO BID #20 capsule Levofloxacin [Levaquin] 500 mg PO DAILY #5 tablet Home Medications: Cyclobenzaprine [Flexeril] 10 mg PO TID 05/25/16 [History] Insulin ASPART [Novolog] 7 unit SQ TIDAC 05/25/16 [History] Insulin Glargine [Lantus] 12 unit SQ BID 05/25/16 [History] Dextroamphetamine/Amphetamine [Dextroamp-Amphetamin 20 mg Tab] 20 mg PO BID 02/06 [History] Esomeprazole Magnesium [Nexium] 40 mg PO DAILY 05/26/16 [History] Venlafaxine HCl [Venlafaxine HCl ER] 150 mg PO DAILY 05/26/16 [History] diazePAM [Valium] 5 mg PO Q12HR PRN 05/26/16 [History] Aspirin [Lo-Dose Aspirin EC] 81 mg PO DAILY 09/07/17 [History] Atorvastatin [Lipitor] 20 mg PO DAILY 09/07/17 [History] Furosemide [Lasix] 20 mg PO BID 09/07/17 [History] Gabapentin [Neurontin] 800 mg PO QID 09/07/17 [History] OxyCODONE/APAP 5/325 [Percocet 5/325 MG] 1 tab PO Q6H PRN 09/07/17 [History] Propranolol HCl [Innopran Xl] 120 mg PO DAILY 09/07/17 [History] Clindamycin HCl 300 mg PO Q6H #20 capsule 09/10/17 [Rx] DiphenhydraMINE [Benadryl] 25 mg PO DAILY PRN #10 capsule 09/10/17 [Rx] Lactobacillus Acidophilus [Acidophilus] 1 each PO BID #20 capsule 09/10/17 [Rx] Levofloxacin [Levaquin] 500 mg PO DAILY #5 tablet 09/10/17 [Rx] Allergies/Adverse Reactions: 3 Allergy/AdvReac Type Severity Reaction Status Date / Time ketorolac [From Toradol] Allergy Hives Verified 09/07/17 07:14 levofloxacin [From Levaquin] Allergy Hives Verified 09/07/17 07:14 Penicillins [PCN] Allergy Hives Verified 09/07/17 07:14 Sulfa (Sulfonamide Allergy Swelling Verified 09/07/17 07:14 Antibiotics) of Lip/Tongue/Throat sumatriptan [From Imitrex] Allergy Swelling Verified 09/07/17 07:14 of Lip/Tongue/Throat metoclopramide [From Reglan] AdvReac Nausea Verified 09/07/17 07:14 ondansetron AdvReac Nausea Verified 09/07/17 07:14 [From Zofran (as hydrochloride)] Date of admission: 09/07/17 11:08 Primary care physician: Adilson Abdullahi Discharging clinician: Jenny Sandhu Anticipated date of discharge: 09/10/17 - Patient Status Disposition: Home, Self-Care Condition: Good Functional capacity at discharge: independent ambulation Overall status at discharge: patient is progressing back to baseline - Discharge Instructions Instructions: Diabetes Mellitus Type 2 in Adults (DC), Sepsis (DC) Follow Up With: Adilson Abdullahi, [employer] [Primary Care Provider] - 09/26/17 2:00 pm Additional Instructions: F/up with PCP in 1-2 weeks - Diet and Activity Activity: resume usual activities as tolerated Diet: diabetic diet Hospital course: Ms. Fish is a 42 year old female with uncontrolled diabetes, was admitted with persistent nausea, vomiting and left lower abdominal pain. She was started on IV antibiotics for presumed UTI. CT abdomen/pelvis also revealed evidence of sigmoid colitis. She was noted to have multiple antibiotic allergies and was initially given IV aztreonam, which was changed to IV Levaquin and clindamycin, which she seemed to tolerate well. She was kept nothing by mouth along with IV hydration and pain control and when necessary antiemetics and supportive care. Blood and urine cultures remained negative. Patient is currently hemodynamically stable and able to tolerate oral diet. Blood sugars were noted to be elevated at the time of admission, currently better controlled with low normal fasting blood sugars. She is encouraged to be compliant with diabetic diet, insulin and frequent blood glucose monitoring and PCP follow-up and she verbalized understanding. She is otherwise medically stable for discharge today. - Time Spent with Patient Total time spent providing and/or coordinating discharge services: Greater than 30 minutes (40 min) - Constitutional Vitals: Temp Pulse Resp BP Pulse Ox 97.9 F 64 18 120/78 99 09/10/17 11:01 09/10/17 11:01 09/10/17 11:01 09/10/17 11:01 09/10/17 11:01 General appearance: Present: A&O X 3, answers questions appropriately - Respiratory Respiratory exam: Present: CTAB. Absent: accessory muscle use, rales, rhonchi, wheezes - GI/Abdominal GI/Abdominal exam: Present: normal bowel sounds, soft, no peritoneal signs. Absent: distended, tenderness
== END 2017-09-10 16:35 | disposition home or self-care (01) | DRG 872 ==
LOC: 3ANU 07:11 → EMEROO 07:11 → 3ANU 10:38 → SUATTDRO 11:08
PROVIDERS: ADMIT Internal Medicine; ATTEND Internal Medicine

== ENCOUNTER 2018-03-31 19:43 | Inpatient (IN) ==
--- NOTE | 2018-03-31 19:48 | Emergency Department Note ---
Disposition Clinical Impression: Chest pain, Abdominal pain, Hyperglycemia due to type 1 diabetes mellitus, Dehydration, Intractable nausea and vomiting, Diabetic gastroparesis associated with type 1 diabetes mellitus Disposition: Admitted As Inpatient Condition: Fair General Adult HPI - General Chief complaint: ED Chest Pain Stated complaint: chest pain Time Seen by Provider: 03/31/18 19:46 - Related Data Home Medications Medication Instructions Recorded Confirmed Cyclobenzaprine [Flexeril] 10 mg PO TID 05/25/16 03/31/18 Insulin ASPART [Novolog] 6 unit SQ TIDAC 05/25/16 03/31/18 Insulin Glargine [Lantus] 9 unit SQ QAM 05/25/16 03/31/18 Esomeprazole Magnesium [Nexium] 40 mg PO DAILY 05/26/16 03/31/18 Venlafaxine HCl [Venlafaxine HCl 150 mg PO DAILY 05/26/16 03/31/18 ER] Previous Rx's Medication Instructions Recorded Cephalexin [Keflex] 500 mg PO TID #30 capsule 03/30/18 Allergies Allergy/AdvReac Type Severity Reaction Status Date / Time ketorolac [From Toradol] Allergy Hives Verified 03/31/18 22:10 levofloxacin [From Levaquin] Allergy Hives Verified 03/31/18 22:10 Penicillins [PCN] Allergy Hives Verified 03/31/18 22:10 Sulfa (Sulfonamide Allergy Swelling Verified 03/31/18 22:10 Antibiotics) of Lip/Tongue/Throat sumatriptan [From Imitrex] Allergy Swelling Verified 03/31/18 22:10 of Lip/Tongue/Throat metoclopramide [From Reglan] AdvReac Nausea Verified 03/31/18 22:10 ondansetron AdvReac Nausea Verified 03/31/18 22:10 [From Zofran (as hydrochloride)] Past Medical History - Past Medical History Medical history: Reports: diabetes, migraine Surgical history: Reports: cholecystectomy, hysterectomy, other (Gastric pacer) Psychiatric history: Reports: ADHD, depression EXPERIMENTAL ASSEMBLER history: Reports: no EXPERIMENTAL ASSEMBLER history - Social History Smoking Status: Never smoker Smokeless Tobacco Status: No Alcohol use: Reports: none Drug use: Reports: none Course Vital Signs Temperature 96.4 F L 03/31/18 19:50 Pulse Rate 128 03/31/18 19:50 Respiratory Rate 22 03/31/18 19:50 Blood Pressure 112/88 03/31/18 19:50 O2 Sat by Pulse Oximetry 97 03/31/18 19:50 Temperature 98.3 F 03/31/18 23:40 Pulse Rate 128 03/31/18 23:40 Respiratory Rate 16 03/31/18 23:40 Blood Pressure 139/82 03/31/18 23:40 O2 Sat by Pulse Oximetry 96 03/31/18 23:40 Oxygen Delivery Oxygen Delivery Room Air Medical Decision Making - Lab Data Result diagrams: 03/31/18 20:54 03/31/18 20:54 Lab Results 03/31/18 03/31/18 03/31/18 Range/Units 20:50 20:54 20:54 WBC 12.9 H D (4.3-11.1) K/mcL RBC 4.84 (3.82-4.97) M/mcL Hgb 14.4 (11.5-15.4) g/dL Hct 41.6 (35.3-44.9) % MCV 86.0 (83.0-100.0) fL MCH 29.8 (28.0-33.3) pg MCHC 34.6 (31.6-35.5) g/dL RDW 12.4 (11.5-14.5) % Plt Count 240 (140-400) K/mcL MPV 11.2 (9.4-12.4) fL Immature Gran % 0.5 (0-4) % Seg Neutrophils % 77.1 % Lymphocytes % 15.9 % Monocytes % 6.1 % Eosinophils % 0.1 % Basophils % 0.3 % Neutrophils # 10.0 H (1.6-8.9) K/mcL Lymphocytes # 2.1 (0.6-4.6) K/mcL Monocytes # 0.8 (0.0-1.3) K/mcL Eosinophils # 0.0 (0.0-0.6) K/mcL Basophils # 0.0 (0.0-0.2) K/mcL VBG pH (7.32-7.42) pH Units VBG pCO2 (41-51) mmHg VBG pO2 (25-50) mmHg VBG HCO3 (21-27) mEq/L Sodium 132 L (136-145) mEq/L Potassium 4.3 (3.5-5.1) mEq/L Chloride 86 L (98-107) mEq/L Carbon Dioxide 22 L (23-29) mEq/L BUN 28 H (6-20) mg/dL Creatinine 1.06 (0.60-1.20) mg/dL Est GFR ( Amer) > 60 (> 60) Est GFR (Non-Af Amer) 57 L (> 60) BUN/Creatinine Ratio 26 (6-26) Glucose 437 H (70-105) mg/dL Calculated Osmolality 298 (280-300) Lactic Acid (0.5-2.2) mmol/L Calcium 9.2 (8.6-10.3) mg/dL Total Bilirubin 1.2 H (0.3-1.0) mg/dL Direct Bilirubin 0.2 (0.0-0.2) mg/dL Indirect Bilirubin 1.0 (0.0-1.2) mg/dL AST 10 L (13-39) Units/L ALT 17 (7-52) Units/L Alkaline Phosphatase 181 H (34-104) Units/L Troponin I < 0.03 (< 0.04) ng/mL Serum Total Protein 7.4 (6.4-8.9) g/dL Albumin 4.1 (3.5-5.7) g/dL Globulin 3.3 (2.4-3.5) g/dL Albumin/Globulin Ratio 1.2 (1.1-2.2) Lipase 15 (11-82) Units/L Beta-Hydroxybutyric Acd (0.02-0.27) mmol/L Urine Color Yellow (Yellow) Urine Clarity Clear (Clear) Urine pH 5.5 (5.0-8.0) pH Units Ur Specific [place] > 1.030 H (1.010-1.025) Urine Protein 30 H (Neg-Trace) mg/dL Urine Glucose (UA) >=1000 H (Normal) mg/dL Urine Ketones >=160 H (Negative) mg/dL Urine Blood Negative (Negative) Urine Nitrite Negative (Negative) Urine Bilirubin Small H (Negative) Urine Urobilinogen Normal (Normal) mg/dL Ur Leukocyte Esterase Negative (Negative) Urine Microscopic RBC 0-3 (0-3) per hpf Urine Microscopic WBC 15-30 H (0-3) per hpf Ur Squamous Epith Cells Many H (None-Few) per lpf Urine Bacteria None Seen (None-Few) per hpf Hyaline Casts None Seen (None-Few) per lpf Ur Culture Indicated? NO (NO) 03/31/18 03/31/18 03/31/18 Range/Units 20:54 20:54 22:02 WBC (4.3-11.1) K/mcL RBC (3.82-4.97) M/mcL Hgb (11.5-15.4) g/dL Hct (35.3-44.9) % MCV (83.0-100.0) fL MCH (28.0-33.3) pg MCHC (31.6-35.5) g/dL RDW (11.5-14.5) % Plt Count (140-400) K/mcL MPV (9.4-12.4) fL Immature Gran % (0-4) % Seg Neutrophils % % Lymphocytes % % Monocytes % % Eosinophils % % Basophils % % Neutrophils # (1.6-8.9) K/mcL Lymphocytes # (0.6-4.6) K/mcL Monocytes # (0.0-1.3) K/mcL Eosinophils # (0.0-0.6) K/mcL Basophils # (0.0-0.2) K/mcL VBG pH 7.40 (7.32-7.42) pH Units VBG pCO2 35 L (41-51) mmHg VBG pO2 60 H (25-50) mmHg VBG HCO3 22 (21-27) mEq/L Sodium (136-145) mEq/L Potassium (3.5-5.1) mEq/L Chloride (98-107) mEq/L Carbon Dioxide (23-29) mEq/L BUN (6-20) mg/dL Creatinine (0.60-1.20) mg/dL Est GFR ( Amer) (> 60) Est GFR (Non-Af Amer) (> 60) BUN/Creatinine Ratio (6-26) Glucose (70-105) mg/dL Calculated Osmolality (280-300) Lactic Acid 1.3 (0.5-2.2) mmol/L Calcium (8.6-10.3) mg/dL Total Bilirubin (0.3-1.0) mg/dL Direct Bilirubin (0.0-0.2) mg/dL Indirect Bilirubin (0.0-1.2) mg/dL AST (13-39) Units/L ALT (7-52) Units/L Alkaline Phosphatase (34-104) Units/L Troponin I (< 0.04) ng/mL Serum Total Protein (6.4-8.9) g/dL Albumin (3.5-5.7) g/dL Globulin (2.4-3.5) g/dL Albumin/Globulin Ratio (1.1-2.2) Lipase (11-82) Units/L Beta-Hydroxybutyric Acd > 2.00 H (0.02-0.27) mmol/L Urine Color (Yellow) Urine Clarity (Clear) Urine pH (5.0-8.0) pH Units Ur Specific [place] (1.010-1.025) Urine Protein (Neg-Trace) mg/dL Urine Glucose (UA) (Normal) mg/dL Urine Ketones (Negative) mg/dL Urine Blood (Negative) Urine Nitrite (Negative) Urine Bilirubin (Negative) Urine Urobilinogen (Normal) mg/dL Ur Leukocyte Esterase (Negative) Urine Microscopic RBC (0-3) per hpf Urine Microscopic WBC (0-3) per hpf Ur Squamous Epith Cells (None-Few) per lpf Urine Bacteria (None-Few) per hpf Hyaline Casts (None-Few) per lpf Ur Culture Indicated? (NO) Attestation Statement - Attestation Attestation: I examined this patient and my medical decision-making was reviewed with the Resident Physician. I agree with the documented findings, disposition and treatment plan as described except to the extent set forth below. [id number] time provided Patient arrives by EMS. She states she has a history of diabetic gastroparesis. She complains of nausea, vomiting, inability to tolerate oral intake. On exam she is tearful and anxious. I will review the transcribed report of her most recent ED visit dated yesterday
[2018-03-31] MEDS ORDERED: *HR* Promethazine 25 MG/ML VIAL IVP ONE (19:51)
[2018-03-31] MEDS ORDERED: 0.9 % Sodium Chloride 1,000 ML IVC ONE ×2 (19:51→21:57)
[2018-03-31] MEDS ORDERED: cefTRIAXone 2,000 MG in 0.9 % Sodium Chloride Mini Bag 100 ML IVPB ONE (20:22)
[2018-03-31 21:13] LABS: Basophils % 0.3 %; Eosinophils % 0.1 %; Hematocrit 41.6 % (35.3-44.9); Hemoglobin 14.4 g/dL (11.5-15.4); Immature Granulocytes % 0.5 % (0-4); Lymphocytes # 2.1 K/mcL (0.6-4.6); Lymphocytes % 15.9 %; Mean Corpuscular HGB Conc 34.6 g/dL (31.6-35.5); Mean Corpuscular Hemoglobin 29.8 pg (28.0-33.3); Mean Platelet Volume 11.2 fL (9.4-12.4); Monocytes # 0.8 K/mcL (0.0-1.3); Monocytes % 6.1 %; Platelet Count 240 K/mcL (140-400); Red Blood Count 4.84 M/mcL (3.82-4.97); Red Cell Distribution Width 12.4 % (11.5-14.5); Segmented Neutrophils % 77.1 %
--- NOTE | 2018-03-31 21:17 | Emergency Department Note ---
Disposition Clinical Impression: Hyperglycemia due to type 1 diabetes mellitus, Dehydration, Diabetic gastroparesis associated with type 1 diabetes mellitus Chest pain Qualifiers: Chest pain type: unspecified Qualified Code(s): R07.9 - Chest pain, unspecified Abdominal pain Qualifiers: Abdominal location: generalized Qualified Code(s): R10.84 - Generalized abdominal pain Intractable nausea and vomiting Qualifiers: Vomiting type: unspecified Qualified Code(s): R11.2 - Nausea with vomiting, unspecified Disposition: Admitted As Inpatient Condition: Fair Forms: ED Satisfaction Letter Time of Disposition: 23:12 General Adult HPI - General Chief complaint: ED Chest Pain Stated complaint: chest pain Time Seen by Provider: 03/31/18 19:46 Source: patient, EMS Limitations: no limitations Nursing Notes Reviewed: Yes Vital Signs Reviewed: Yes - History of Present Illness HPI Narrative: Patient is a 42-year-old female who presents to [facility] ED with a chief complaint of nausea, vomiting, abdominal pain, chest pain. Patient was seen here yesterday and diagnosed with a urinary tract infection. She was sent home with a antibiotic. This did grow out Escherichia coli and urine culture. However she was unable to take her antibiotics due to persistent nausea with vomiting. She has a history of type 2 diabetes and has diabetic gastroparesis. Denies any fevers or chills. States she has left- sided chest pain. No prior history of ACS. Her abdominal pain is worse in the left upper quadrant but also generalized. Onset (ago): day(s) Location: chest, abdomen Pain Severity: severe Pain Scale: 10 Quality: aching Consistency: constant Improves with: nothing Worsens with: nothing Associated symptoms: Reports: chest pain. Denies: cough, fever/chills, nausea/ vomiting, shortness of breath Treatments Prior to Arrival: none - Related Data Home Medications Medication Instructions Recorded Confirmed Cyclobenzaprine [Flexeril] 10 mg PO TID 05/25/16 03/31/18 Insulin ASPART [Novolog] 6 unit SQ TIDAC 05/25/16 03/31/18 Insulin Glargine [Lantus] 9 unit SQ QAM 05/25/16 03/31/18 Esomeprazole Magnesium [Nexium] 40 mg PO DAILY 05/26/16 03/31/18 Venlafaxine HCl [Venlafaxine HCl 150 mg PO DAILY 05/26/16 03/31/18 ER] Previous Rx's Medication Instructions Recorded Cephalexin [Keflex] 500 mg PO TID #30 capsule 03/30/18 Allergies Allergy/AdvReac Type Severity Reaction Status Date / Time ketorolac [From Toradol] Allergy Hives Verified 03/31/18 22:10 levofloxacin [From Levaquin] Allergy Hives Verified 03/31/18 22:10 Penicillins [PCN] Allergy Hives Verified 03/31/18 22:10 Sulfa (Sulfonamide Allergy Swelling Verified 03/31/18 22:10 Antibiotics) of Lip/Tongue/Throat sumatriptan [From Imitrex] Allergy Swelling Verified 03/31/18 22:10 of Lip/Tongue/Throat metoclopramide [From Reglan] AdvReac Nausea Verified 03/31/18 22:10 ondansetron AdvReac Nausea Verified 03/31/18 22:10 [From Zofran (as hydrochloride)] All systems ED: reviewed and negative except as stated. Past Medical History - Past Medical History Attestation: Yes The following information was validated with the patient. 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: no LEAD TANK MECHANIC history - Social History Smoking Status: Never smoker Smokeless Tobacco Status: No Alcohol use: Reports: none Drug use: Reports: none Physical Exam - General Limitations: no limitations General appearance: alert, in no apparent distress - Head Head exam: atraumatic, normocephalic, normal inspection - Eye Eye exam: Present: normal appearance, EOMI - ENT ENT exam: mucous membranes dry - Neck Neck exam: Present: normal inspection, full ROM, trachea midline - Chest Chest inspection: Present: normal inspection, symmetric chest wall rise - Respiratory Respiratory exam: Present: normal lung sounds bilaterally - Cardiovascular Cardiovascular exam: Present: normal rhythm, tachycardia - Abdominal Exam Abdominal exam: Present: soft, tenderness. Absent: distention, guarding, rebound, rigidity Abdominal tenderness: Present: LUQ, moderate - Extremities Exam Extremities exam: Present: normal inspection, full ROM. Absent: tenderness, pedal edema - Back Exam Back exam: Present: normal inspection, full ROM. Absent: tenderness - Neurological Exam Neurological exam: Present: alert, oriented X3 - Psychiatric Psychiatric exam: Present: normal affect, normal mood - Skin Skin exam: Present: warm, dry, intact, normal color Course Course Narrative: Patient seen and examined. Abdominal pain, persistent nausea with vomiting, recent diagnosis of urinary tract infection. We will get abdominal labs, chest x-ray, EKG. Her abdominal exam is benign that she is tender on the left side. She had a normal CT of the abdomen and pelvis yesterday. Since she was diagnosed with urinary tract infection but has been unable to keep down her antibiotics, we will order her a dose of Rocephin here. 25 mg of Phenergan ordered for nausea. - Reevaluation(s) Reevaluation #1: Patient still having nausea. We will give her a dose of 2.5 mg of Haldol to see if this can help with some of her symptoms. Since patient's BMP shows an anion gap, we will go ahead and get a VBG and serum ketones. Serum ketones were elevated at 2.00. Patient is likely very dehydrated. A second liter of IV fluids ordered. Her pH on VBG is 7.40. We will admit for dehydration, intractable nausea with vomiting, borderline DKA. I discussed with hospitalist Dr. Santos who has accepted patient for admission. Time: 23:09 Vital Signs Temperature 96.4 F L 03/31/18 19:50 Pulse Rate 128 03/31/18 19:50 Respiratory Rate 22 03/31/18 19:50 Blood Pressure 112/88 03/31/18 19:50 O2 Sat by Pulse Oximetry 97 03/31/18 19:50 Temperature 96.4 F L 03/31/18 19:50 Pulse Rate 128 03/31/18 19:50 Respiratory Rate 22 03/31/18 19:50 Blood Pressure 112/88 03/31/18 19:50 O2 Sat by Pulse Oximetry 97 03/31/18 19:50 Oxygen Delivery Oxygen Delivery Room Air Medical Decision Making - Medical Records Medical records reviewed: Yes I reviewed the patient's medical records. - Lab Data Lab results reviewed: Yes I reviewed the patient's lab results. Result diagrams: 03/31/18 20:54 Lab Results 03/31/18 Range/Units 20:54 WBC 12.9 H D (4.3-11.1) K/mcL RBC 4.84 (3.82-4.97) M/mcL Hgb 14.4 (11.5-15.4) g/dL Hct 41.6 (35.3-44.9) % MCV 86.0 (83.0-100.0) fL MCH 29.8 (28.0-33.3) pg MCHC 34.6 (31.6-35.5) g/dL RDW 12.4 (11.5-14.5) % Plt Count 240 (140-400) K/mcL MPV 11.2 (9.4-12.4) fL Immature Gran % 0.5 (0-4) % Seg Neutrophils % 77.1 % Lymphocytes % 15.9 % Monocytes % 6.1 % Eosinophils % 0.1 % Basophils % 0.3 % Neutrophils # 10.0 H (1.6-8.9) K/mcL Lymphocytes # 2.1 (0.6-4.6) K/mcL Monocytes # 0.8 (0.0-1.3) K/mcL Eosinophils # 0.0 (0.0-0.6) K/mcL Basophils # 0.0 (0.0-0.2) K/mcL - Radiology Data Radiology results reviewed: Yes I reviewed the patient's radiology results. Chest X-Ray 03/31/18 19:52 IMPRESSION: No acute cardiopulmonary abnormality. D/ / Justin Carlton / Justin Carlton Interpreting Provider: Justin Carlton - EKG Data EKG #1 EKG attestation: Yes I reviewed and interpreted this EKG. EKG results narrative: EKG done at 2014 shows sinus tachycardia with a rate of [address] elevation or depression. Inverted T wave noted in lead 3 and aVF.
[2018-03-31 21:21] LABS: Bilirubin,Urine Small (Negative); Blood,Urine Negative (Negative); Clarity,Urine Clear (Clear); Color,Urine Yellow (Yellow); Glucose,Urine (UA) >=1000 mg/dL (Normal); Ketones,Urine >=160 mg/dL (Negative); Leukocyte Esterase,Urine Negative (Negative); Nitrite,Urine Negative (Negative); PH,Urine 5.5 pH Units (5.0-8.0); Protein,Urine 30 mg/dL (Neg-Trace); Specific Gravity,Urine > 1.030 (1.010-1.025); Urobilinogen,Urine Normal (Normal)
[2018-03-31 21:25] LABS: Bacteria,Urine None Seen per hpf (None-Few); Hyaline Casts,Urine None Seen per lpf (None-Few); RBC,Urine 0-3 per hpf (0-3); Squamous Epithelial Cell,Urine Many per lpf (None-Few); WBC,Urine 15-30 per hpf (0-3)
[2018-03-31 21:30] LABS: Troponin I < 0.03 ng/mL (< 0.04)
[2018-03-31 21:31] LABS: Alanine Aminotransferase 17 Units/L (7-52); Albumin 4.1 g/dL (3.5-5.7); Albumin/Globulin Ratio 1.2 (1.1-2.2); Alkaline Phosphatase 181 Units/L (34-104); Aspartate Amino Transferase 10 Units/L (13-39); BUN/Creatinine Ratio 26 (6-26); Bilirubin,Direct 0.2 mg/dL (0.0-0.2); Bilirubin,Total 1.2 mg/dL (0.3-1.0); Blood Urea Nitrogen 28 mg/dL (6-20); Calcium 9.2 mg/dL (8.6-10.3); Carbon Dioxide 22 mEq/L (23-29); Chloride 86 mEq/L (98-107); Globulin 3.3 g/dL (2.4-3.5); Glucose 437 mg/dL (70-105); Lipase 15 Units/L (11-82); Osmolality,Calculated 298 (280-300); Potassium 4.3 mEq/L (3.5-5.1); Sodium 132 mEq/L (136-145); Total Protein 7.4 g/dL (6.4-8.9); eGFR For African Americans > 60 (> 60); eGFR For Non-African Americans 57 (> 60)
[2018-03-31] MEDS ORDERED: Haloperidol Lactate 5 MG/ML VIAL IVP ONE (21:52)
[2018-03-31 22:05] LABS: VBG HCO3 22 mEq/L (21-27); VBG PCO2 35 mmHg (41-51); VBG PO2 60 mmHg (25-50)
[2018-03-31] MEDS ORDERED: 0.9 % Sodium Chloride w KCl 20 MEQ/1,000 ML MLS IVC SCH (23:45)
[2018-03-31] MEDS ORDERED: Insulin Human Regular 100 UNIT in 0.9 % Sodium Chloride 100 ML IVC SCH (23:45)
--- NOTE | 2018-03-31 23:57 | Internal Med History&Physical ---
<Clara Urias - Last Filed: 04/01/18 00:52> Date of Encounter: 03/31/18 Time of Encounter: 23:50 Internal Medicine - H&P: HPI Chief complaint: nausea and vomiting Admitted From: Emergency Dept Plans for Post Hospital Care: Home History of present illness: Ms. Fish is a 42 year old female PMH type 1 diabetes, depression who presented to [facility] complaining of intractable nausea and vomiting since Friday and is not improving. She reported that yesterday she had come to the ED for nausea and vomiting and was found to have an asymptomatic UTI. A CT of her abdomen/ pelvis showed no acute abnormality. She was given Rocephin IV one- time dose and was discharged with Keflex. Today she returned because the nausea and vomiting had not improved along with diffuse abdominal pain. She is also complaining of chest pain that had been present since 10 AM was centrally located with no radiation and still minimally present. She has no cardiac history. She took Phenergan at home which seem to help the nausea. She reports having a hemoglobin A1C 12.0 about a year ago. She stated that she is compliant with her insulin. She denies recent illness, travel, new foods. She admitted to fevers and chills. Denied hematemesis, shortness of breath, dizziness, melena, hematechezia, constipation. She has had normal bowel movements and passing gas. She reports having a cholecystectomy but still has her appendix. Upon examination of past visits she has been admitted and seen in the ER multiple times due to hyperglycemia with nausea and vomiting. Labs in ED demonstrated VBG pH 7.4, >2.0 Beta- hydroxybutyric acid, anion gap 24. Alkaline phosphatase 181. +Urine ketones. LFT, lipase, troponin, bilirubin all within normal limits. EKG: sinus tachycardia rate 124, no acute ST elevation or depression. In the ED she was given 2 IV fluid bolus, Phenergan , Rocephin. CXR demonstrated no acute cardiopulmonary process. Urine culture from yesterday growing E. coli. She is a full code. Past Med Surg Social Fam HX - Past Medical History Medical history: diabetes, migraine Psychiatric history: ADHD, depression - Past Surgical History Surgical History: cholecystectomy, hysterectomy, other (Gastric pacer) - Social History Smoking Status: Never smoker Smokeless Tobacco Status: No Alcohol use: none Drug use: none - Family History Mother Living Status: Still Living Hx Family Cardiac Disorders: Yes Hx Family Respiratory Disorders: Yes Hx Family Cancer: Yes Hx Family GI Disorders: No Hx Family Endocrine Disorder: Yes Hx Family Neuromuscular Disorders: No Hx Family Neurologic Disorders: No Hx Family Autoimmune Disorders: No Father Living Status: Hx Family Cardiac Disorders: Yes Hx Family Respiratory Disorders: No Hx Family Cancer: Yes Hx Family GI Disorders: No Hx Family Endocrine Disorder: No Hx Family Neuromuscular Disorders: No Hx Family Neurologic Disorders: No Hx Family HEENT Disorders: Yes (Anuerysm of head) Hx Family Autoimmune Disorders: No Internal Medicine - H&P: Meds Cyclobenzaprine [Flexeril] 10 mg PO TID 05/25/16 [History] Insulin ASPART [Novolog] 6 unit SQ TIDAC 05/25/16 [History] Insulin Glargine [Lantus] 9 unit SQ QAM 05/25/16 [History] Esomeprazole Magnesium [Nexium] 40 mg PO DAILY 05/26/16 [History] Venlafaxine HCl [Venlafaxine HCl ER] 150 mg PO DAILY 05/26/16 [History] Cephalexin [Keflex] 500 mg PO TID #30 capsule 03/30/18 [Rx] 3 Allergy/AdvReac Type Severity Reaction Status Date / Time ketorolac [From Toradol] Allergy Hives Verified 03/31/18 22:10 levofloxacin [From Levaquin] Allergy Hives Verified 03/31/18 22:10 Penicillins [PCN] Allergy Hives Verified 03/31/18 22:10 Sulfa (Sulfonamide Allergy Swelling Verified 03/31/18 22:10 Antibiotics) of Lip/Tongue/Throat sumatriptan [From Imitrex] Allergy Swelling Verified 03/31/18 22:10 of Lip/Tongue/Throat metoclopramide [From Reglan] AdvReac Nausea Verified 03/31/18 22:10 ondansetron AdvReac Nausea Verified 03/31/18 22:10 [From Zofran (as hydrochloride)] All Systems PM: A 10-system review of systems was performed and is negative for pertinent findings except as documented above in the HPI. - Constitutional Constitutional: chills, fever(s) - EENT Eyes: no change in vision Nose, mouth and throat: dry mouth - Cardiovascular Cardiovascular ROS IM: chest pain, no diaphoresis, no edema, no palpitations - Respiratory Respiratory: no cough, no dyspnea, no hemoptysis, no wheezing - Gastrointestinal Gastrointestinal: abdominal pain, nausea, vomiting, no constipation, no diarrhea , no hematemesis, no hematochezia, no melena - Genitourinary Genitourinary: no dysuria, no flank pain, no hematuria, no urinary frequency, no urinary urgency - Integumentary Integumentary IM: no erythema, no pruritus, no rash - Constitutional Vitals: Temp Pulse Resp BP Pulse Ox 98.3 F 128 16 139/82 96 03/31/18 23:40 03/31/18 23:40 03/31/18 23:40 03/31/18 23:40 03/31/18 23:40 Exam: Gen.: Vitals noted. No acute distress. AAOx3 HEENT: oropharynx clear, Normocephalic, atraumatic Cardiac: RRR, no murmur, +S1/S2 Pulmonary: CTA bilaterally, no wheezes, rales or rhonchi, equal chest expansion Abdomen: soft, diffuse tender, Bowel sounds noted, no guarding MSK: ROM intact, no joint swelling noted Extremities: no BLE edema, nontender calf, no cyanosis or clubbing Neuro: A&Ox3, moves all extremities, no focal deficits Psych: Appropriate mood and behavior Internal Med - H&P Results - Labs CBC & Chem 7: 03/31/18 20:54 03/31/18 20:54 - Assessment and plan (1) DKA (diabetic ketoacidoses) Current Visit: Yes Status: Acute Assessment and plan: DKA likely likely secondary to multiple factors such as patient noncompliance with diabetes management and recent diagnosis of UTI. Patient reported nausea and vomiting since Friday that has not improved. Presented to ED yesterday and was diagnosed with asymptomatic UTI and discharged with Keflex. Returned to ED today due to intractable nausea and vomiting with abdominal pain. Given 2 IVF bolus in ED Anion gap 24, beta hydroxybutyric acid >2.0 urine ketones VBG pH 7.4 -normal potassium 4.3 WBC 12.9, afebrile, tachycardic 128. Unlikely to be septic continue to monitor -started insulin drip -IVF NaCl w/ KCl rate 250 -Phenergan for nausea -ordered Hgb A1C -NPO -AM BMP and Mg Qualifiers: Qualified Code(s): E10.10 - Type 1 diabetes mellitus with ketoacidosis without coma (2) Abdominal pain Current Visit: Yes Status: Acute Assessment and plan: Abdominal pain likely muscular strain secondary to nausea and vomiting for multiple days. Abdominal exam soft, diffusely tender, bowel sounds present, no guarding. CT abdomen/pelvis yesterday showed no acute abnormality. LFT, bilirubin, lipase WNL lactic acid 1.3 alkaline phosphatase 181 (chronically elevated after review of past levels) -Recheck alkaline phosphatase and bone specific alkaline phosphatase in a.m. ( Patient has had a cholecystectomy however due to elevated alkaline phosphatase chronically consider possible bile duct obstruction) -STAT test Qualifiers: Abdominal location: generalized Qualified Code(s): R10.84 - Generalized abdominal pain (3) UTI (urinary tract infection) Current Visit: No Status: Ruled-out Assessment and plan: Treated for a UTI yesterday in ED. Urinalysis positive and urine culture growing E. coli. Was given one dose Rocephin in ED and discharged with Keflex yesterday. Will continue treatment of asymptomatic UTI since this is in setting of DKA. Urinalysis: + urine ketones, negative for leukocyte esterase and nitrite -Will continue Rocephin -awaiting urine culture sensitivity Qualifiers: Urinary tract infection type: acute cystitis Hematuria presence: with hematuria Qualified Code(s): N30.01 - Acute cystitis with hematuria (4) Intractable nausea and vomiting Current Visit: Yes Status: Acute Assessment and plan: Likely secondary to DKA -continue Phenergan Qualifiers: Vomiting type: unspecified Qualified Code(s): R11.2 - Nausea with vomiting , unspecified (5) Uncontrolled type 1 diabetes mellitus Current Visit: No Status: Acute Assessment and plan: She reported that last hemoglobin A1C about a year ago was 12.0 She does not see an foot doctor, but follows with her PCP in [place]. She has been to the ED and admitted multiple times due to hyperglycemia with associated nausea/ vomiting and abdominal pain. Qualifiers: Diabetes mellitus complication status: with hyperglycemia Qualified Code(s) : E10.65 - Type 1 diabetes mellitus with hyperglycemia (6) Depression Current Visit: No Status: Chronic Assessment and plan: History of depression taking venlafaxine continue home medication once reconciled by pharmacy Qualifiers: Depression Type: unspecified Qualified Code(s): F32.9 - Major depressive disorder, single episode, unspecified (7) DVT prophylaxis Current Visit: No Status: Acute Assessment and plan: EPCD - Time Spent With Patient Total time spent is greater than 50% in coordination of care (as documented) at patient's floor/unit and/or counseling patient: <Maikol Jacobs - Last Filed: 04/01/18 02:37> Date of Encounter: 04/01/18 Time of Encounter: 01:00 - Constitutional Constitutional: anorexia, fatigue - EENT Nose, mouth and throat: dry mouth, no nasal congestion, no sinus pressure, no sore throat - Cardiovascular Cardiovascular ROS IM: no chest pain, no dyspnea - Respiratory Respiratory: no cough, no dyspnea, no hemoptysis, no wheezing - Gastrointestinal Gastrointestinal: abdominal pain, nausea, vomiting, no constipation, no diarrhea , no hematemesis, no hematochezia, no melena - Genitourinary Genitourinary: no dysuria, no flank pain, no hematuria - Musculoskeletal Musculoskeletal ROS IM: muscle cramps, muscle weakness, no myalgias - Integumentary Integumentary IM: no rash - Neurological Neurological ROS: no dizziness, no focal weakness, no frequent falls, no headache(s) - Psychiatric Psychiatric: anxiety, no depression - Endocrine Endocrine IM: polydipsia, polyuria - Allergic/Immunologic Allergic/Immunologic: GI upset with certain foods, no wheezing - Constitutional Vitals: Temp Pulse Resp BP Pulse Ox 98.3 F 128 16 139/82 96 03/31/18 23:40 03/31/18 23:40 03/31/18 23:40 03/31/18 23:40 03/31/18 23:40 General appearance: Present: mild distress, A&O X 3, answers questions appropriately Exam: mild distress due to nausea and dehydration; looks dehydrated - Head Head exam: Present: atraumatic, normal inspection - Eye Eye exam: Present: EOMI, normal appearance, PERRL. Absent: scleral icterus Pupils: Present: normal accommodation - ENT ENT exam: Present: mucous membranes dry, normal exam - Neck Neck exam general surgery: Present: full ROM, supple. Absent: lymphadenopathy, tenderness, nuchal rigidity, thyromegaly - Respiratory Respiratory exam: Present: CTAB. Absent: rales, rhonchi, wheezes - Cardiovascular Cardiovascular exam: Present: RRR, +S1, +S2, tachycardia. Absent: diastolic murmur, systolic murmur - GI/Abdominal GI/Abdominal exam: Present: normal bowel sounds, soft, tenderness (mild diffuse) , no peritoneal signs. Absent: guarding, hepatomegaly, mass, rebound - Extremities Exam Extremities exam: Present: full ROM, warm, radial pulses palpable and symmetrical. Absent: calf tenderness, joint swelling, pedal edema, tenderness - Back Exam Back exam: Present: normal inspection. Absent: CVA tenderness (L), CVA tenderness (R) - Neurological Exam Neurological exam: Present: alert, CN II-XII intact, oriented X3, no focal deficits - Psychiatric Psychiatric exam: Present: anxious. Absent: depressed - Skin Skin exam: Present: dry, warm. Absent: rash Internal Med - H&P Results - Labs CBC & Chem 7: 03/31/18 20:54 04/01/18 01:30 Labs: BMP 04/01/18 01:30 Sodium 135 L Potassium 4.0 Chloride 97 L Carbon Dioxide 17 L BUN 24 H Creatinine 0.99 Glucose 350 H Calcium 7.9 L Liver Function 04/01/18 Range/Units 01:30 Alkaline Phosphatase 153 H (34-104) Units/L - Attending Attestation I discussed the patient ATKA, past medical history, review systems, and exam findings with Dr. Lopez. I then saw and examined patient independently. Patient appears to be clinically dehydrated and in mild distress secondary to nausea and vomiting and some mild diffuse abdominal pain. She has evidence of DKA and significant dehydration on exam. She will be placed on IV fluids, insulin drip, and DKA orders per protocol. Additionally, I asked Dr. Lopez to order a serum test for the remote possibility of as etiology of her nausea and vomiting. Her qualitative serum test came back positive. I called and confirmed this with laboratory and they stated it was weakly positive. I did not realize patient had a hysterectomy previously. I asked Dr. Lopez to confirm with patient and patient did confirm she had hysterectomy. Furthermore, she had CT scan imaging yesterday which revealed absence of the uterus. I called and discussed with Dr. Dennis, and he suspects this may be false positive. He recommended ordering a urine test as well. If this is positive, she may have a remote underlying hCG secreting tumor and may need further workup. We will continue treatment for DKA and close electrolyte management presently. Meanwhile, we will await quantitative serum hCG and urine hCG testing as well. She may need further workup pending these lab results. Regarding her UTI, I agree with the Vivin and we'll follow her urine culture from yesterday. Patient does not follow with endocrinology, and her last hemoglobin A1c was roughly 12. Her glucose control is suboptimal and she has had frequent ER visits for hyperglycemia. I recommend she establish with an foot doctor for better glucose monitoring and diabetes control. Other than my above comments and noted physical exam findings, I agree with Dr. Lopez's assessment and plan. - Time Spent With Patient Total time spent is greater than 50% in coordination of care (as documented) at patient's floor/unit and/or counseling patient:
[2018-03-31] MEDS ORDERED: *HR* Dextrose 50 % in Water (Syg) 50 ML SYRINGE IVP PRN (23:58)
[2018-03-31] MEDS ORDERED: Insulin Regular, Human 100 UNIT/ML IV PRN (23:58)
[2018-04-01] MEDS ORDERED: Pantoprazole 40 MG VIAL IVP ONE (00:28)
[2018-04-01] MEDS ORDERED: 0.9 % Sodium Chloride w KCl 20 MEQ/1,000 ML MLS IVC PRN (00:53)
[2018-04-01] MEDS ORDERED: Naloxone 0.4 MG/ML INJ IVP PRN (00:54)
[2018-04-01] MEDS ORDERED: 0.9 % Sodium Chloride w KCl 20 MEQ/1,000 ML MLS IVC ONE (00:58)
[2018-04-01] MEDS ORDERED: D5% in 0.45% NACL 1,000 ML IVC PRN (01:33)
[2018-04-01] MEDS ORDERED: D5% in 0.45% NACL w KCl 20 MEQ/1,000 ML MLS IVC PRN (01:33)
[2018-04-01 01:59] LABS: BUN/Creatinine Ratio 24 (6-26); Blood Urea Nitrogen 24 mg/dL (6-20); Calcium 7.9 mg/dL (8.6-10.3); Carbon Dioxide 17 mEq/L (23-29); Chloride 97 mEq/L (98-107); Glucose 350 mg/dL (70-105); Osmolality,Calculated 298 (280-300); Sodium 135 mEq/L (136-145); eGFR For African Americans > 60 (> 60); eGFR For Non-African Americans > 60 (> 60)
[2018-04-01] MEDS ORDERED: Insulin Human Regular 100 UNIT in 0.9 % Sodium Chloride 100 ML IVC SCH (03:30)
[2018-04-01] MEDS: *HR* Promethazine 25 MG/ML VIAL IVP PRN ×4 (03:39→23:26)
[2018-04-01] MEDS: Acetaminophen 325 MG TABLET PO PRN ×2 (04:45→20:04)
[2018-04-01] MEDS: *HR* Heparin 5,000 UNIT/ML VIAL SQ SCH ×2 (04:45→18:06)
[2018-04-01 05:23] LABS: VBG HCO3 25 mEq/L (21-27); VBG PCO2 43 mmHg (41-51); VBG PH 7.38 pH Units (7.32-7.42); VBG PO2 91 mmHg (25-50)
[2018-04-01 05:28] LABS: BUN/Creatinine Ratio 26 (6-26); Blood Urea Nitrogen 23 mg/dL (6-20); Calcium 8.2 mg/dL (8.6-10.3); Carbon Dioxide 25 mEq/L (23-29); Chloride 101 mEq/L (98-107); Glucose 158 mg/dL (70-105); Magnesium 1.7 mg/dL (1.6-2.6); Osmolality,Calculated 291 (280-300); Potassium 3.5 mEq/L (3.5-5.1); Sodium 137 mEq/L (136-145); eGFR For African Americans > 60 (> 60); eGFR For Non-African Americans > 60 (> 60)
[2018-04-01] MEDS ORDERED: Insulin DETEMIR 100 UNIT/ML X5UNITS SQ SCH (06:33)
[2018-04-01 07:17] LABS: Hematocrit 34.7 % (35.3-44.9); Hemoglobin 11.9 g/dL (11.5-15.4); Mean Corpuscular HGB Conc 34.3 g/dL (31.6-35.5); Mean Corpuscular Hemoglobin 29.2 pg (28.0-33.3); Mean Platelet Volume 10.8 fL (9.4-12.4); Platelet Count 198 K/mcL (140-400); Red Blood Count 4.08 M/mcL (3.82-4.97); Red Cell Distribution Width 12.5 % (11.5-14.5)
[2018-04-01] MEDS: cefTRIAXone 1,000 MG in Water for inj. (sterile) 20 ML 10 ML IVP SCH (07:30)
[2018-04-01] MEDS: Insulin LISPRO 300 UNITS/3 ML VIAL SQ SCH ×3 (07:31→17:54)
[2018-04-01] MEDS: 0.9 % Sodium Chloride 1,000 ML IVC SCH ×2 (09:40→18:11)
[2018-04-01 10:29] LABS: Estimated Average Glucose 315 mg/dl; Hemoglobin A1C 12.6 %
[2018-04-01] MEDS ORDERED: Isovue-370 500 ML INFUS..BTL IV ONE (10:33)
[2018-04-01] MEDS ORDERED: Nitroglycerin 0.4 MG TAB.SUBL SL PRN (12:15)
[2018-04-01] MEDS: Nitroglycerin 0.4 MG TAB.SUBL SL ONE ×2 (12:18→12:24)
[2018-04-01] MEDS ORDERED: traMADol 50 MG TABLET PO STA (12:35)
--- NOTE | 2018-04-01 14:24 | Internal Med Progress Note ---
<Yohannes Bingham T - Last Filed: 04/01/18 16:28> Date of Encounter: 04/01/18 - Time Spent With Patient Total time spent is greater than 50% in coordination of care (as documented) at patient's floor/unit and/or counseling patient: - Constitutional Vitals: Temp Pulse Resp BP Pulse Ox 98.8 F 120 18 151/91 94 04/01/18 11:09 04/01/18 12:26 04/01/18 11:09 04/01/18 11:09 04/01/18 11:09 Internal Medicine: Result - Labs CBC & Chem 7: 04/01/18 06:55 04/01/18 04:00 Labs: Short CBC 04/01/18 Range/Units 06:55 WBC 11.8 H (4.3-11.1) K/mcL Hgb 11.9 D (11.5-15.4) g/dL Hct 34.7 L (35.3-44.9) % Plt Count 198 (140-400) K/mcL BMP 04/01/18 04:00 Sodium 137 Potassium 3.5 Chloride 101 Carbon Dioxide 25 BUN 23 H Creatinine 0.90 Glucose 158 H Calcium 8.2 L Cardiac Enzymes 04/01/18 Range/Units 12:44 Troponin I < 0.03 (< 0.04) ng/mL - ABG Interpretation ABG results: PT/INR, D-dimer D-Dimer 1193 ng/mLFEU (0-500) H 04/01/18 09:31 - Impressions Impressions Chest CTA 04/01/18 10:33 IMPRESSION: 1. No findings of pulmonary embolism. 2. Increased extensive circumferential wall thickening and mucosal hyperenhancement in the mid to distal thoracic esophagus suggestive of esophagitis. Underlying malignancy cannot be excluded. Consider endoscopy. 3. Mild cardiomegaly, minimal interstitial pulmonary edema, trace right pleural effusion, findings that could be related to congestive heart failure. 4. Minimal bronchial wall thickening potentially due to pulmonary vascular congestion, reactive airways disease, or bronchitis. D/ / Shaji Cisneros MD / Shaji Cisneros MD Interpreting Provider: Shaji Cisneros MD Consult Discharge Plan - Plan Referrals: Adilson Abdullahi, [employer] [Primary Care Provider] - 04/13/18 4:30 pm () - Attending Attestation I examined this patient and my medical decision-making was reviewed with the Resident Physician on 04/01/18. I agree with the documented findings, disposition and treatment plan as described except to the extent set forth below. Seen and examined at bedside. 42-year-old female with depression admitted for uncontrolled diabetes mellitus, with hyperglycemia and anion gap metabolic acidosis, UTI. No DKA. She has made clinical improvement. Her only complaint at time will review his chest pain left-sided nonradiating and reproducible. CT angiogram was out pulmonary embolism but shows esophagitis. EKG showed sinus tachycardia without ST segment changes. She has T-wave inversions in lead 3 and aVF. These are chronic compared to EKG from 08/2017. Troponin negative 2. Continue current management, consult gastroenterology for possible EGD in the morning, patient likely has a psychotic component to her symptoms. test is false positive. Rest of details as in the resident physician's documentation <Shaji Faust - Last Filed: 04/01/18 18:05> Date of Encounter: 04/01/18 Time of Encounter: 08:00 - Assessment and plan (1) Hyperglycemia due to type 1 diabetes mellitus Current Visit: Yes Status: Acute Assessment and plan: Hyperglycemia on arrival, concern for DKA vs HHS The patient had high anion gap, serum ketones, and glucose >500. pH was 7.4 Started on insulin drip and patient's glucose and gap returned to normal range Nausea and vomiting ceased following correction of serum anion gap and glucose We will transition the patient back to Basal + SSI for management Check BMP in AM (2) Chest pain Current Visit: Yes Status: Acute Assessment and plan: Atypical chest pain which is likely more abdominal pain There is reproducibility of pain with palpation EKG shows no acute changes, troponin negative The patient has remained tachycardic, and complains of calf pain. PE is in differential DDimer was positive, so I ordered a CTA Chest which was negative for PE CTA did demonstrate increased extensive circumferential wall thickening and mucosal hyperenhancement in the mid to distal thoracic esophagus suggestive of esophagitis. Consult to GI for endoscopy Qualifiers: Chest pain type: unspecified Qualified Code(s): R07.9 - Chest pain, unspecified (3) Abnormal CT of the abdomen Current Visit: Yes Status: Acute Assessment and plan: CT Shows 1. No findings of pulmonary embolism. 2. Increased extensive circumferential wall thickening and mucosal hyperenhancement in the mid to distal thoracic esophagus suggestive of esophagitis. Underlying malignancy cannot be excluded. Consider endoscopy. 3. Mild cardiomegaly, minimal interstitial pulmonary edema, trace right pleural effusion, findings that could be related to congestive heart failure. 4. Minimal bronchial wall thickening potentially due to pulmonary vascular congestion, reactive airways disease, or bronchitis. We will consult GI for endoscopy (4) Intractable nausea and vomiting Current Visit: Yes Status: Resolved Assessment and plan: Intractable nausea/vomiting related to possible DKA vs. HHS Resolved Qualifiers: Vomiting type: unspecified Qualified Code(s): R11.2 - Nausea with vomiting , unspecified (5) Acute cystitis with hematuria Current Visit: Yes Status: Acute Assessment and plan: Acute cystitis as demonstrated on UA in ED Continue on Rocephin, day 2 (6) Abdominal pain Current Visit: Yes Status: Acute Assessment and plan: Epigastric and lower left quadrant abdominal pain CTA Chest shows esophagitis, which is likely cause of epigastric pain Increase PPI to BID dosing Consult to GI for scope in the morning NPO at Midnight Qualifiers: Abdominal location: generalized Qualified Code(s): R10.84 - Generalized abdominal pain (7) Dehydration Current Visit: Yes Status: Acute Assessment and plan: Volume depletion secondary to DKA vs HHS, Improved Continue maintenance fluids (8) DVT prophylaxis Current Visit: No Status: Acute Assessment and plan: SQ Heparin - Time Spent With Patient Total time spent is greater than 50% in coordination of care (as documented) at patient's floor/unit and/or counseling patient: - Subjective Interval history: The patient is seen and examined at bedside. She is highly emotional and complains that she is still having severe chest pains which are relentless and unremitting. It is substernal chest pain which does not radiate, and is not associated with any symptoms such as SOB. She says that it has been constant since she's arrived, and nothing has helped. She otherwise says that her n/v have mostly resolved. - Constitutional Vitals: Temp Pulse Resp BP Pulse Ox 98.8 F 120 18 151/91 94 04/01/18 11:09 04/01/18 12:26 04/01/18 11:09 04/01/18 11:09 04/01/18 11:09 Exam: Gen: Vitals noted. Mildly distressed, teary eyed on exam HEENT: PERRL/EOMI, oropharynx clear, Normocephalic, atraumatic Neck: Supple. No adenopathy. Cardiac: RRR, no murmur, +S1/S2 Pulmonary: CTA bilaterally, no wheezes, rales or rhonchi, equal chest expansion Abdomen: soft, Minimally tender to palpation globally, BS noted, no guarding Back: Nontender throughout. MSK: ROM intact, no joint swelling noted Extremities: no BLE edema, complains of significant tenderness on palpation of right calf Neuro: A&Ox3, moves all extremities, no focal deficits Psych: Emotionally labile with over the top reactions to every statement Internal Medicine: Result - Labs CBC & Chem 7: 04/01/18 06:55 04/01/18 04:00 Labs: Short CBC 04/01/18 Range/Units 06:55 WBC 11.8 H (4.3-11.1) K/mcL Hgb 11.9 D (11.5-15.4) g/dL Hct 34.7 L (35.3-44.9) % Plt Count 198 (140-400) K/mcL BMP 04/01/18 04:00 Sodium 137 Potassium 3.5 Chloride 101 Carbon Dioxide 25 BUN 23 H Creatinine 0.90 Glucose 158 H Calcium 8.2 L Cardiac Enzymes 04/01/18 Range/Units 12:44 Troponin I < 0.03 (< 0.04) ng/mL - ABG Interpretation ABG results: PT/INR, D-dimer D-Dimer 1193 ng/mLFEU (0-500) H 04/01/18 09:31 - Impressions Impressions Chest CTA 04/01/18 10:33
[2018-04-01] MEDS: Pantoprazole 40 MG VIAL IVP SCH (18:07)
--- NOTE | 2018-04-02 05:28 | Electrocardiograph Report ---
[address] [address] Test Date: 2018-03-31 Pat Name: Moreno Fish Department: [id number] Room: 2N02 Gender: F Patient Transport Officer: SHYANNE : 1975 Requested By: Anila Schroeder Order Number: [id number] Reading MD: Anshu Oconnor Measurements Intervals [place] Rate: 124 P: 54 W[place]: 116 QRS: 75 QRSD: 89 T: -1 QT: 336 QTc: 410 Interpretive Statements SINUS TACHYCARDIA WITH SHORT WY INTERVAL NONSPECIFIC T-WAVE ABNORMALITY Electronically Signed On 04-02-2018 5:26:28 EDT by Anshu Oconnor
[2018-04-02] MEDS: Pantoprazole 40 MG VIAL IVP SCH ×2 (05:47→17:23)
[2018-04-02] MEDS: *HR* Promethazine 25 MG/ML VIAL IVP PRN ×4 (05:47→19:35)
[2018-04-02] MEDS: GI Cocktail 40 ML EACH PO ONE ×2 (05:47→05:52)
[2018-04-02] MEDS: *HR* Heparin 5,000 UNIT/ML VIAL SQ SCH ×2 (05:48→17:23)
[2018-04-02] MEDS ORDERED: Pantoprazole 40 MG VIAL IVP SCH (06:30)
[2018-04-02 06:40] LABS: Basophils % 0.2 %; Eosinophils % 0.2 %; Hematocrit 35.8 % (35.3-44.9); Hemoglobin 12.2 g/dL (11.5-15.4); Immature Granulocytes % 0.5 % (0-4); Lymphocytes # 1.8 K/mcL (0.6-4.6); Lymphocytes % 14.8 %; Mean Corpuscular HGB Conc 34.1 g/dL (31.6-35.5); Mean Corpuscular Hemoglobin 29.7 pg (28.0-33.3); Mean Corpuscular Volume 87.1 fL (83.0-100.0); Mean Platelet Volume 11.4 fL (9.4-12.4); Monocytes # 0.9 K/mcL (0.0-1.3); Neutrophils # 9.5 K/mcL (1.6-8.9); Nucleated Red Blood Cells 0.2 /100 WBC (0); Platelet Count 175 K/mcL (140-400); Red Blood Count 4.11 M/mcL (3.82-4.97); Red Cell Distribution Width 12.3 % (11.5-14.5); Segmented Neutrophils % 77.3 %
[2018-04-02 06:48] LABS: Alanine Aminotransferase 12 Units/L (7-52); Albumin 3.4 g/dL (3.5-5.7); Albumin/Globulin Ratio 1.2 (1.1-2.2); Alkaline Phosphatase 136 Units/L (34-104); Aspartate Amino Transferase 10 Units/L (13-39); BUN/Creatinine Ratio 14 (6-26); Bilirubin,Total 0.8 mg/dL (0.3-1.0); Blood Urea Nitrogen 11 mg/dL (6-20); Calcium 8.3 mg/dL (8.6-10.3); Carbon Dioxide 14 mEq/L (23-29); Chloride 98 mEq/L (98-107); Globulin 2.8 g/dL (2.4-3.5); Glucose 366 mg/dL (70-105); Osmolality,Calculated 290 (280-300); Potassium 4.2 mEq/L (3.5-5.1); Sodium 133 mEq/L (136-145); Total Protein 6.2 g/dL (6.4-8.9); eGFR For African Americans > 60 (> 60); eGFR For Non-African Americans > 60 (> 60)
--- NOTE | 2018-04-02 07:15 | Internal Med Progress Note ---
<Shaij Faust - Last Filed: 04/02/18 13:20> Date of Encounter: 04/02/18 Time of Encounter: 07:13 - Assessment and plan (1) Chest pain Current Visit: Yes Status: Acute Assessment and plan: Atypical chest pain which is likely more abdominal pain There is reproducibility of pain with palpation EKG shows no acute changes, troponin negative The patient has remained tachycardic, and complains of calf pain. PE is in differential DDimer was positive, so I ordered a CTA Chest which was negative for PE CTA did demonstrate increased extensive circumferential wall thickening and mucosal hyperenhancement in the mid to distal thoracic esophagus suggestive of esophagitis. Consult to GI for endoscopy, plan for EGD today Qualifiers: Chest pain type: unspecified Qualified Code(s): R07.9 - Chest pain, unspecified (2) Abnormal CT of the abdomen Current Visit: Yes Status: Acute Assessment and plan: CT Shows 1. No findings of pulmonary embolism. 2. Increased extensive circumferential wall thickening and mucosal hyperenhancement in the mid to distal thoracic esophagus suggestive of esophagitis. Underlying malignancy cannot be excluded. Consider endoscopy. 3. Mild cardiomegaly, minimal interstitial pulmonary edema, trace right pleural effusion, findings that could be related to congestive heart failure. 4. Minimal bronchial wall thickening potentially due to pulmonary vascular congestion, reactive airways disease, or bronchitis. We will consult GI for endoscopy, plan for today (3) Intractable nausea and vomiting Current Visit: Yes Status: Resolved Assessment and plan: Intractable nausea/vomiting related to possible DKA Initially resolved, however patient has started having vomiting again with DKA beginning again Continue phenergan Qualifiers: Vomiting type: unspecified Qualified Code(s): R11.2 - Nausea with vomiting , unspecified (4) Acute cystitis with hematuria Current Visit: Yes Status: Acute Assessment and plan: Acute cystitis as demonstrated on UA in ED Continue on Rocephin, day 3 (5) Abdominal pain Current Visit: Yes Status: Acute Assessment and plan: Epigastric and lower left quadrant abdominal pain CTA Chest shows esophagitis, which is likely cause of epigastric pain Increase PPI to BID dosing Consult to GI for EGD today NPO at Midnight Qualifiers: Abdominal location: generalized Qualified Code(s): R10.84 - Generalized abdominal pain (6) Dehydration Current Visit: Yes Status: Acute Assessment and plan: Volume depletion secondary to DKA I did give 1L Normal saline this morning in response to continued tachycardia The patient appears to be back in DKA, will continue aggressive fluid repletion (7) DVT prophylaxis Current Visit: No Status: Acute Assessment and plan: SQ Heparin (8) DKA (diabetic ketoacidoses) Current Visit: Yes Status: Acute Assessment and plan: Hyperglycemia on arrival, concern for DKA vs HHS The patient had high anion gap, serum ketones, and glucose >500. pH was 7.4 Started on insulin drip and patient's glucose and gap returned to normal range Nausea and vomiting ceased following correction of serum anion gap and glucose We will transition the patient back to Basal + SSI for management Check BMP in AM Update 04/02 BMP this morning showed acidosis with Bicarb 15, F/U VBG showed pH 7.22 Glucose has been continuing to elevate overnight, continues to be tachycardic Patient is complaining of increased nausea and vomiting, and some more abdominal pain I did give 1L bolus this morning prior to results of VBG I will restart the DKA protocol --5U IV Insulin --Insulin drip titration --q4h BMP while monitoring gap, initial BMP pending --250mL IV fluids per protocol Qualifiers: Diabetes mellitus type: type 1 Diabetes mellitus complication detail: without coma Qualified Code(s): E10.10 - Type 1 diabetes mellitus with ketoacidosis without coma - Time Spent With Patient Total time spent is greater than 50% in coordination of care (as documented) at patient's floor/unit and/or counseling patient: - Subjective Interval history: The patient is seen and examined at bedside. She remains emotionally labile, however she seems much more stable today that previously. She is still having significant nausea and vomiting, which worsened overnight. She does say her chest pain has largely resolved. - Constitutional Vitals: Temp Pulse Resp BP Pulse Ox 98.7 F 119 16 158/93 96 04/02/18 03:35 04/02/18 03:35 04/02/18 03:35 04/02/18 03:35 04/02/18 03:35 General appearance: Present: mild distress, A&O X 3, answers questions appropriately Exam: Gen: Vitals noted. emotional on exam, but not teary eyed HEENT: PERRL/EOMI, oropharynx clear, Normocephalic, atraumatic Neck: Supple. No adenopathy. Cardiac: RRR, no murmur, +S1/S2 Pulmonary: CTA bilaterally, no wheezes, rales or rhonchi, equal chest expansion Abdomen: soft, Minimally tender to palpation globally (lower abdomen > upper), BS noted, no guarding Back: Nontender throughout. MSK: ROM intact, no joint swelling noted Extremities: no BLE edema, complains of significant tenderness on palpation of right calf Neuro: A&Ox3, moves all extremities, no focal deficits Psych: Remains emotional however appears to be significantly improved where mood is concerned Internal Medicine: Result - Labs CBC & Chem 7: 04/02/18 06:05 04/02/18 06:05 Labs: Short CBC 04/01/18 04/02/18 Range/Units 06:55 06:05 WBC 11.8 H 12.3 H (4.3-11.1) K/mcL Hgb 11.9 D 12.2 (11.5-15.4) g/dL Hct 34.7 L 35.8 (35.3-44.9) % Plt Count 198 175 (140-400) K/mcL Neutrophils # 9.5 H (1.6-8.9) K/mcL BMP 04/02/18 06:05 Sodium 133 L Potassium 4.2 Chloride 98 Carbon Dioxide 14 L BUN 11 Creatinine 0.76 Glucose 366 H Calcium 8.3 L Cardiac Enzymes 04/01/18 04/01/18 Range/Units 12:44 22:03 Troponin I < 0.03 < 0.03 (< 0.04) ng/mL Liver Function 04/02/18 Range/Units 06:05 Total Bilirubin 0.8 (0.3-1.0) mg/dL AST 10 L (13-39) Units/L ALT 12 (7-52) Units/L Alkaline Phosphatase 136 H (34-104) Units/L Albumin 3.4 L (3.5-5.7) g/dL - ABG Interpretation ABG results: PT/INR, D-dimer D-Dimer 1193 ng/mLFEU (0-500) H 04/01/18 09:31 - Impressions Impressions Chest CTA 04/01/18 10:33 IMPRESSION: 1. No findings of pulmonary embolism. 2. Increased extensive circumferential wall thickening and mucosal hyperenhancement in the mid to distal thoracic esophagus suggestive of esophagitis. Underlying malignancy cannot be excluded. Consider endoscopy. 3. Mild cardiomegaly, minimal interstitial pulmonary edema, trace right pleural effusion, findings that could be related to congestive heart failure. 4. Minimal bronchial wall thickening potentially due to pulmonary vascular congestion, reactive airways disease, or bronchitis. D/ / Shaji Cisneros MD / Shaji Cisneros MD Interpreting Provider: Shaji Cisneros MD Consult Discharge Plan - Plan Referrals: Adilson Abdullahi, ELECTRIC METER TESTER HELPER [Primary Care Provider] - 04/13/18 4:30 pm () <Yohannes Bingham - Last Filed: 04/02/18 16:42> Date of Encounter: 04/02/18 - Assessment and plan (1) Abnormal CT of the abdomen Current Visit: Yes Status: Acute (2) DVT prophylaxis Current Visit: No Status: Acute (3) Acute cystitis with hematuria Current Visit: Yes Status: Acute (4) Abdominal pain Current Visit: Yes Status: Acute Qualifiers: Abdominal location: generalized Qualified Code(s): R10.84 - Generalized abdominal pain (5) Chest pain Current Visit: Yes Status: Acute Qualifiers: Chest pain type: unspecified Qualified Code(s): R07.9 - Chest pain, unspecified (6) Dehydration Current Visit: Yes Status: Acute (7) Intractable nausea and vomiting Current Visit: Yes Status: Resolved Qualifiers: Vomiting type: unspecified Qualified Code(s): R11.2 - Nausea with vomiting , unspecified (8) DKA (diabetic ketoacidoses) Current Visit: Yes Status: Acute Qualifiers: Diabetes mellitus type: type 1 Diabetes mellitus complication detail: without coma Qualified Code(s): E10.10 - Type 1 diabetes mellitus with ketoacidosis without coma - Time Spent With Patient Total time spent is greater than 50% in coordination of care (as documented) at patient's floor/unit and/or counseling patient: - Constitutional Vitals: Temp Pulse Resp BP Pulse Ox 99.2 F 120 17 136/91 98 04/02/18 11:14 04/02/18 11:14 04/02/18 11:14 04/02/18 11:14 04/02/18 11:14 Internal Medicine: Result - Labs CBC & Chem 7: 04/02/18 06:05 04/02/18 15:13 Labs: Short CBC 04/02/18 Range/Units 06:05 WBC 12.3 H (4.3-11.1) K/mcL Hgb 12.2 (11.5-15.4) g/dL Hct 35.8 (35.3-44.9) % Plt Count 175 (140-400) K/mcL Neutrophils # 9.5 H (1.6-8.9) K/mcL BMP 04/02/18 04/02/18 04/02/18 06:05 12:36 15:13 Sodium 133 L 133 L 134 L Potassium 4.2 4.2 4.2 Chloride 98 105 105 Carbon Dioxide 14 L 14 L 15 L BUN 11 12 10 Creatinine 0.76 0.74 0.73 Glucose 366 H 232 H 134 H Calcium 8.3 L 8.0 L 8.1 L Cardiac Enzymes 04/01/18 Range/Units 22:03 Troponin I < 0.03 (< 0.04) ng/mL Liver Function 04/02/18 Range/Units 06:05 Total Bilirubin 0.8 (0.3-1.0) mg/dL AST 10 L (13-39) Units/L ALT 12 (7-52) Units/L Alkaline Phosphatase 136 H (34-104) Units/L Albumin 3.4 L (3.5-5.7) g/dL - ABG Interpretation ABG results: PT/INR, D-dimer D-Dimer 1193 ng/mLFEU (0-500) H 04/01/18 09:31 - Attending Attestation I examined this patient and my medical decision-making was reviewed with the Resident Physician on 04/02/18. I agree with the documented findings, disposition and treatment plan as described except to the extent set forth below. Seen and examined at bedside. For EGD today, continue insulin drip Rest as in resident physiciann's documentation
[2018-04-02] MEDS ORDERED: 0.9 % Sodium Chloride 1,000 ML IVC ONE (07:18)
[2018-04-02] MEDS ORDERED: Insulin LISPRO 300 UNITS/3 ML VIAL SQ SCH ×3 (08:07→22:45)
[2018-04-02] MEDS: Venlafaxine XR (24 HR) 150 MG CAP.ER.24H PO SCH (09:33)
[2018-04-02] MEDS: Lisinopril 20 MG TABLET PO SCH (09:33)
[2018-04-02] MEDS: cefTRIAXone 1,000 MG in Water for inj. (sterile) 20 ML 10 ML IVP SCH (09:33)
[2018-04-02 10:52] LABS: VBG HCO3 12 mEq/L (21-27); VBG PCO2 29 mmHg (41-51); VBG PH 7.22 pH Units (7.32-7.42); VBG PO2 196 mmHg (25-50)
[2018-04-02] MEDS ORDERED: Insulin Regular, Human 100 UNIT/ML IV PRN (11:25)
[2018-04-02] MEDS ORDERED: 0.9 % Sodium Chloride 1,000 ML IVC SCH ×2 (11:30)
[2018-04-02] MEDS ORDERED: 0.45 % Sodium Chloride w/KCl 20 MEQ/1,000 ML MLS IVC SCH ×2 (11:30)
[2018-04-02] MEDS ORDERED: Insulin Human Regular 100 UNIT in 0.9 % Sodium Chloride 100 ML IVC SCH (11:30)
--- NOTE | 2018-04-02 12:47 | Gastroenterology Consult Note ---
<Shaji Garay Jacqui - Last Filed: 04/02/18 12:43> Date of Encounter: 04/02/18 Time of Encounter: 11:00 - Assessment and plan (1) Abdominal pain Current Visit: No Status: Resolved Assessment and plan: Chest CTA shows increased extensive circumferential wall thickening and mucosal hyperenhancement in the mid to distal thoracic esophagus suggestive of esophagitis. Underlying malignancy cannot be excluded. Plan for EGD today. Keep NPO. Continue PPI. Patient educated regarding lifestyle modifications including: (1) avoidance of foods that may precipitate reflux (eg, coffee, alcohol, chocolate, fatty foods) . (2) avoidance of acidic foods that may precipitate heartburn (eg, citrus, carbonated drinks, spicy foods). (3) adoption of behaviors that may reduce esophageal acid exposure (see weight loss, smoking cessation, raising the head of the bed, and avoiding recumbency for 2-3 hours after meals). Qualifiers: Abdominal location: epigastric Qualified Code(s): R10.13 - Epigastric pain (2) Nausea & vomiting Current Visit: Yes Status: Acute Assessment and plan: Continue antiemetics, PPI, IV fluids. Plan for EGD today. Keep NPO. Qualifiers: Vomiting type: unspecified Vomiting Intractability: non-intractable Qualified Code(s): R11.2 - Nausea with vomiting, unspecified - Time Spent With Patient Total time spent is greater than 50% in coordination of care (as documented) at patient's floor/unit and/or counseling patient: GI History of Present Illness - Data of Consult Patient: new to practice Consult date: 04/02/18 Requesting Physician: Bri Santos MD - Consult Narrative Reason for consult: Esophagitis by CT scan History of present illness: Ms. Fihs is a 42 year old female with PMHx of type 1 diabetes, depression, s /p hysterectomy who presented to the ED with c/o intractable nausea and vomiting since Friday and is not improving. She had come to the ED on 03/30 for nausea and vomiting and was found to have an asymptomatic UTI. A CT of her abdomen/ pelvis showed no acute abnormality. She was given Rocephin IV one-time dose and was discharged with Keflex. She returned to the ED because her nausea and vomiting had not improved along with diffuse abdominal pain. She is also complaining of chest pain. She took Phenergan at home which seem to help the nausea. She reports having a hemoglobin A1C 12.0 about a year ago. She stated that she is compliant with her insulin. She denies hematemesis, shortness of breath, dizziness, melena, hematechezia, constipation. Serum test positive, beta HCG 6, and urine test negative, but pt is s/p hysterectomy. Procedures: EGD 02/05/2014 Dr. Ambrosio: LA Grade B esophagitis, ulcerative esophagitis, hiatus hernia, gastritis. EGD 12/17/2012 Dr. Sheppard: Severe erosive ulcerative esophagitis. NSAIDs: None Anticoagulation: None Past Med Surg Social Fam HX - Past Medical History Medical history: diabetes, migraine Psychiatric history: ADHD, depression - Past Surgical History Surgical History: cholecystectomy, hysterectomy, other (Gastric pacer) - Social History Smoking Status: Never smoker Smokeless Tobacco Status: No Alcohol use: none Drug use: none - Family History Mother Living Status: Still Living Hx Family Cardiac Disorders: Yes Hx Family Respiratory Disorders: Yes Hx Family Cancer: Yes Hx Family GI Disorders: No Hx Family Endocrine Disorder: Yes Hx Family Neuromuscular Disorders: No Hx Family Neurologic Disorders: No Hx Family Autoimmune Disorders: No Father Living Status: Hx Family Cardiac Disorders: Yes Hx Family Respiratory Disorders: No Hx Family Cancer: Yes Hx Family GI Disorders: No Hx Family Endocrine Disorder: No Hx Family Neuromuscular Disorders: No Hx Family Neurologic Disorders: No Hx Family HEENT Disorders: Yes (Anuerysm of head) Hx Family Autoimmune Disorders: No - Gastrointestinal Gastrointestinal: Present: as per HPI - Constitutional Constitutional: as per HPI - EENT Eyes: as per HPI Ears: Present: as per HPI Nose, mouth and throat: Present: as per HPI - Cardiovascular Cardiovascular ROS: Present: as per HPI - Respiratory Respiratory IM: Present: as per HPI - Genitourinary Genitourinary: Absent: change in color, Urinary frequency - Neurological ROS Neurological GI: Present: as per HPI - Hematologic/Lymphatic Hematologic/Lymphatic pediatric: Present: as per HPI - Musculoskeletal Musculoskeletal ROS GI: Present: as per HPI - Integumentary Integumentary GI: Present: as per HPI - Psychiatric ROS Psychiatric GI: Present: as per HPI - Endocrine Endocrine IM: Present: as per HPI - Constitutional Vitals: Temp Pulse Resp BP Pulse Ox 99.2 F 120 17 136/91 98 04/02/18 11:14 04/02/18 11:14 04/02/18 11:14 04/02/18 11:14 04/02/18 11:14 General appearance: Present: cooperative, A&O X 3, no acute distress, answers questions appropriately - Head Head exam: Present: atraumatic, normocephalic - Eye Eye exam: Present: normal appearance, sclera anicteric - ENT ENT exam: Present: mucous membranes dry - Neck Neck exam general surgery: Present: normal inspection, trachea midline - Respiratory Respiratory exam: Present: CTAB. Absent: rales, rhonchi - Cardiovascular Cardiovascular exam: Present: RRR, +S1, +S2 - GI/Abdominal GI/Abdominal exam: Present: soft, tenderness (generalized), no peritoneal signs. Absent: distended, firm, guarding - Rectal Rectal exam: Present: deferred - Extremities Exam Extremities exam: Present: warm - Neurological Exam Neurological exam: Present: no focal deficits - Psychiatric Psychiatric exam: Present: normal affect, normal mood - Skin Skin exam: Present: dry, intact, normal color, warm Results - Labs CBC & Chem 7: 04/02/18 06:05 04/02/18 06:05 Labs: Last Result Calcium 8.3 mg/dL (8.6-10.3) L 04/02/18 06:05 Troponin I < 0.03 ng/mL (< 0.04) 04/01/18 22:03 Entire Visit Hgb 12.2 g/dL (11.5-15.4) 04/02/18 06:05 Hct 35.8 % (35.3-44.9) 04/02/18 06:05 Total Bilirubin 0.8 mg/dL (0.3-1.0) 04/02/18 06:05 AST 10 Units/L (13-39) L 04/02/18 06:05 ALT 12 Units/L (7-52) 04/02/18 06:05 Lipase 15 Units/L (11-82) 03/31/18 20:54 - ABG ABG results: PT/INR, D-dimer D-Dimer 1193 ng/mLFEU (0-500) H 04/01/18 09:31 Consult Discharge Plan - Plan Referrals: Adilson Abdullahi, CONT[employer] LAND CONSULTANT [Primary Care Provider] - 04/13/18 4:30 pm () <Srinivas Sheppard - Last Filed: 04/02/18 17:40> Date of Encounter: 04/02/18 Time of Encounter: 11:00 - Time Spent With Patient Total time spent is greater than 50% in coordination of care (as documented) at patient's floor/unit and/or counseling patient: GI History of Present Illness - Data of Consult Requesting Physician: Bri Santos MD - Consult Narrative History of present illness: Ms. Fish is a 42 year old female - Constitutional Vitals: Temp Pulse Resp BP Pulse Ox 99.2 F 120 17 136/91 98 04/02/18 11:14 04/02/18 11:14 04/02/18 11:14 04/02/18 11:14 04/02/18 11:14 Results - Labs CBC & Chem 7: 04/02/18 06:05 04/02/18 15:13 Labs: Last Result Calcium 8.1 mg/dL (8.6-10.3) L 04/02/18 15:13 Troponin I < 0.03 ng/mL (< 0.04) 04/01/18 22:03 Entire Visit Hgb 12.2 g/dL (11.5-15.4) 04/02/18 06:05 Hct 35.8 % (35.3-44.9) 04/02/18 06:05 Total Bilirubin 0.8 mg/dL (0.3-1.0) 04/02/18 06:05 AST 10 Units/L (13-39) L 04/02/18 06:05 ALT 12 Units/L (7-52) 04/02/18 06:05 Lipase 15 Units/L (11-82) 03/31/18 20:54 - ABG ABG results: PT/INR, D-dimer D-Dimer 1193 ng/mLFEU (0-500) H 04/01/18 09:31 - Attending Attestation I have personally performed a face to face evaluation on this patient. I have reviewed and agree with the care plan. History and Exam by me shows: Patient seen at the bedside. On examination abdomen is benign. Assessment: currently in DKA and she has been started on insulin infusion. EGD with thickening of the lower esophagus suspicious for esophagitis but rule out other etiology. Recommendation: Treatment of DKA as per primary team. Once clinically stable, then we will do the EGD
[2018-04-02 13:21] LABS: BUN/Creatinine Ratio 16 (6-26); Blood Urea Nitrogen 12 mg/dL (6-20); Carbon Dioxide 14 mEq/L (23-29); Chloride 105 mEq/L (98-107); Glucose 232 mg/dL (70-105); Osmolality,Calculated 283 (280-300); Potassium 4.2 mEq/L (3.5-5.1); Sodium 133 mEq/L (136-145); eGFR For African Americans > 60 (> 60); eGFR For Non-African Americans > 60 (> 60)
[2018-04-02] MEDS: D5% in 0.45% NACL w KCl 20 MEQ/1,000 ML MLS IVC SCH ×2 (14:48→20:06)
--- NOTE | 2018-04-02 15:13 | Electrocardiograph Report ---
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
--- NOTE | 2018-04-02 15:24 | Electrocardiograph Report ---
[address] [address] Test Date: 2018-04-01 Pat Name: Moreno Fish Department: 110 Room: 2N02 Gender: Log Getter: YSABEL : 1975 Requested By: Clara Urias Order Number: [id number] Reading MD: Sandra Nevarez Measurements Intervals [place] Rate: 121 P: 62 [place]: 149 QRS: 79 QRSD: 88 T: -19 QT: 338 QTc: 410 Interpretive Statements SINUS TACHYCARDIA NONSPECIFIC ST-WAVE ABNORMALITY Electronically Signed On 04-02-2018 15:23:02 EDT by Sandra Nevarez
[2018-04-02 15:53] LABS: BUN/Creatinine Ratio 14 (6-26); Blood Urea Nitrogen 10 mg/dL (6-20); Calcium 8.1 mg/dL (8.6-10.3); Carbon Dioxide 15 mEq/L (23-29); Chloride 105 mEq/L (98-107); Glucose 134 mg/dL (70-105); Osmolality,Calculated 279 (280-300); Potassium 4.2 mEq/L (3.5-5.1); Sodium 134 mEq/L (136-145); eGFR For African Americans > 60 (> 60); eGFR For Non-African Americans > 60 (> 60)
[2018-04-02] MEDS ORDERED: Metoclopramide 10 MG/2 ML VIAL IVP PRN (17:01)
[2018-04-02 20:48] LABS: BUN/Creatinine Ratio 10 (6-26); Blood Urea Nitrogen 7 mg/dL (6-20); Carbon Dioxide 16 mEq/L (23-29); Chloride 103 mEq/L (98-107); Glucose 212 mg/dL (70-105); Osmolality,Calculated 278 (280-300); Potassium 4.8 mEq/L (3.5-5.1); Sodium 132 mEq/L (136-145); eGFR For African Americans > 60 (> 60); eGFR For Non-African Americans > 60 (> 60)
[2018-04-02] MEDS ORDERED: GI Cocktail 40 ML EACH PO ONE (21:44)
[2018-04-02] MEDS: Insulin DETEMIR 100 UNIT/ML X5UNITS SQ SCH (23:26)
[2018-04-03 01:26] LABS: Carbon Dioxide 17 mEq/L (23-29); Chloride 105 mEq/L (98-107); Potassium 4.1 mEq/L (3.5-5.1); Sodium 133 mEq/L (136-145)
[2018-04-03 01:27] LABS: BUN/Creatinine Ratio 10 (6-26); Blood Urea Nitrogen 6 mg/dL (6-20); Calcium 8.1 mg/dL (8.6-10.3); Glucose 159 mg/dL (70-105); Osmolality,Calculated 277 (280-300); eGFR For African Americans > 60 (> 60); eGFR For Non-African Americans > 60 (> 60)
[2018-04-03] MEDS: D5% in 0.45% NACL w KCl 20 MEQ/1,000 ML MLS IVC SCH ×2 (01:31→06:42)
[2018-04-03] MEDS: *HR* Promethazine 25 MG/ML VIAL IVP PRN ×2 (01:35→06:06)
[2018-04-03] MEDS: Acetaminophen 325 MG TABLET PO PRN (01:53)
[2018-04-03 03:36] LABS: Hematocrit 32.8 % (35.3-44.9); Hemoglobin 11.5 g/dL (11.5-15.4); Immature Granulocytes % 0.7 % (0-4); Lymphocytes % 28.7 %; Mean Corpuscular HGB Conc 35.1 g/dL (31.6-35.5); Mean Corpuscular Hemoglobin 29.3 pg (28.0-33.3); Mean Corpuscular Volume 83.5 fL (83.0-100.0); Mean Platelet Volume 10.4 fL (9.4-12.4); Platelet Count 160 K/mcL (140-400); Red Blood Count 3.93 M/mcL (3.82-4.97); Red Cell Distribution Width 12.1 % (11.5-14.5); Segmented Neutrophils % 60.9 %
[2018-04-03 03:37] LABS: Basophils % 0.2 %; Eosinophils % 0.5 %; Lymphocytes # 1.7 K/mcL (0.6-4.6); Monocytes # 0.5 K/mcL (0.0-1.3); Neutrophils # 3.6 K/mcL (1.6-8.9)
[2018-04-03 03:45] LABS: VBG HCO3 22 mEq/L (21-27); VBG PCO2 40 mmHg (41-51); VBG PH 7.34 pH Units (7.32-7.42); VBG PO2 105 mmHg (25-50)
[2018-04-03 04:17] LABS: BUN/Creatinine Ratio 8 (6-26); Blood Urea Nitrogen 5 mg/dL (6-20); Calcium 8.1 mg/dL (8.6-10.3); Carbon Dioxide 19 mEq/L (23-29); Chloride 103 mEq/L (98-107); Glucose 123 mg/dL (70-105); Osmolality,Calculated 275 (280-300); Potassium 4.2 mEq/L (3.5-5.1); Sodium 133 mEq/L (136-145); eGFR For African Americans > 60 (> 60); eGFR For Non-African Americans > 60 (> 60)
[2018-04-03] MEDS: *HR* Heparin 5,000 UNIT/ML VIAL SQ SCH ×2 (05:47→18:05)
[2018-04-03] MEDS: Pantoprazole 40 MG VIAL IVP SCH (05:47)
[2018-04-03] MEDS ORDERED: Insulin LISPRO 300 UNITS/3 ML VIAL SQ SCH ×4 (06:00→21:00)
[2018-04-03] MEDS ORDERED: Lidocaine -MPF 2% 2 ML VIAL ONE (07:54)
[2018-04-03] MEDS ORDERED: Propofol 500 MG/50 ML INFUS..BTL ONE (07:54)
[2018-04-03] MEDS ORDERED: *HR* Propofol 200 MG/20 ML VIAL IVP ONE (07:55)
[2018-04-03] MEDS: cefTRIAXone 1,000 MG in Water for inj. (sterile) 20 ML 10 ML IVP SCH (08:30)
--- NOTE | 2018-04-03 08:31 | Anesthesia Evaluation PreOp ---
Date of Encounter: 04/03/18 Time of Encounter: 08:29 - Past History Planned Operation: EGD Cardiac History: Denies any Significant Hx, HTN Pulmonary History: Denies Any Significant HX WAD IMPREGNATOR History: Other (diabetic gastroparesis, ADHD) Other Medical History: Diabetes Type I (recent DKA), Other Anesthesia History: No Prior Anesthetic Complications, Past Anesthesia (gastric pacer, marilee, LILLIAM) : No Alcohol Use: none Drug use: none Medications and Allergies Cyclobenzaprine [Flexeril] 10 mg PO TID 05/25/16 [History] Insulin ASPART [Novolog] 6 unit SQ TIDAC 05/25/16 [History] Insulin Glargine [Lantus] 9 unit SQ QAM 05/25/16 [History] Esomeprazole Magnesium [Nexium] 40 mg PO DAILY 05/26/16 [History] Venlafaxine HCl [Venlafaxine HCl ER] 150 mg PO DAILY 05/26/16 [History] Cephalexin [Keflex] 500 mg PO TID #30 capsule 03/30/18 [Rx] 3 Allergy/AdvReac Type Severity Reaction Status Date / Time ketorolac [From Toradol] Allergy Hives Verified 03/31/18 22:10 levofloxacin [From Levaquin] Allergy Hives Verified 03/31/18 22:10 Penicillins [PCN] Allergy Hives Verified 03/31/18 22:10 Sulfa (Sulfonamide Allergy Swelling Verified 03/31/18 22:10 Antibiotics) of Lip/Tongue/Throat sumatriptan [From Imitrex] Allergy Swelling Verified 03/31/18 22:10 of Lip/Tongue/Throat metoclopramide [From Reglan] AdvReac Nausea Verified 03/31/18 22:10 ondansetron AdvReac Nausea Verified 03/31/18 22:10 [From Zofran (as hydrochloride)] - Meds/Allergy Pre-op Review Medications Reviewed: Yes Allergies Reviewed: Yes Beta Blockers on Current Med List: No Anesthesia Results - Labs 04/03/18 03:23 04/03/18 03:23 - Imaging EKG: report reviewed (SINUS TACHYCARDIA NONSPECIFIC ST-WAVE ABNORMALITY) Anesthesia Exam Selected Entries 04/03/18 06:46 Temperature 98.2 F Pulse Rate 115 Respiratory Rate 17 Blood Pressure 146/94 O2 Sat by Pulse Oximetry 97 Oxygen Delivery Method Room Air Weight: 88kg NPO (# of Hours): 8 - HEENT Pupil (Motor): EOMI Mallampati: II Teeth: Missing, Poor dentition Oral Opening: Greater than 3 - WAD IMPREGNATOR LOC: Oriented WAD IMPREGNATOR Motor: Normal RUE, Normal LUE, Normal RLE, Normal LLE, Normal Face WAD IMPREGNATOR Sensory: Normal: RUE, LUE, RLE, LLE, Face - Cardiac Rhythm: Regular (tachycardic but sinus) Murmur: Systolic - Pulmonary Breath Sounds: bilateral Clear Respiratory Effort: Symmetrical Anesthesia Assess/Plan ASA Score: 3 Modified [place] Scale for Level of Consciousness: Cooperative, oriented, and tranquil Anesthetic Plan: MAC Monitoring Plan: Standard Monitors Recovery Plan: Other (agrees to MAC)
[2018-04-03] MEDS ORDERED: Tetracaine/Benzocaine/Butamben 200MG/SPRAY (100SPY/BOT) MM ONE ×2 (08:55→17:34)
[2018-04-03] MEDS ORDERED: Simethicone 40 MG/0.6 ML MLS IR ONE ×2 (08:55→17:34)
--- NOTE | 2018-04-03 09:37 | Internal Med Progress Note ---
<Shaji Faust - Last Filed: 04/03/18 13:15> Date of Encounter: 04/03/18 Time of Encounter: 08:05 - Assessment and plan (1) DKA (diabetic ketoacidoses) Current Visit: Yes Status: Acute Assessment and plan: Hyperglycemia on arrival, concern for DKA vs HHS The patient had high anion gap, serum ketones, and glucose >500. pH was 7.4 Started on insulin drip and patient's glucose and gap returned to normal range Nausea and vomiting ceased following correction of serum anion gap and glucose We will transition the patient back to Basal + SSI for management Check BMP in AM Update 04/02 BMP this morning showed acidosis with Bicarb 15, F/U VBG showed pH 7.22 Glucose has been continuing to elevate overnight, continues to be tachycardic Patient is complaining of increased nausea and vomiting, and some more abdominal pain I did give 1L bolus this morning prior to results of VBG I will restart the DKA protocol --5U IV Insulin --Insulin drip titration --q4h BMP while monitoring gap, initial BMP pending --250mL IV fluids per protocol Update 04/03 Gap has resolved, Bicarb up to 19 We will continue to control glucose with SQ insulin Transfer patient to Tele Qualifiers: Diabetes mellitus type: type 1 Diabetes mellitus complication detail: without coma Qualified Code(s): E10.10 - Type 1 diabetes mellitus with ketoacidosis without coma (2) Chest pain Current Visit: Yes Status: Acute Assessment and plan: Atypical chest pain which is likely more abdominal pain There is reproducibility of pain with palpation EKG shows no acute changes, troponin negative The patient has remained tachycardic, and complains of calf pain. PE is in differential DDimer was positive, so I ordered a CTA Chest which was negative for PE CTA did demonstrate increased extensive circumferential wall thickening and mucosal hyperenhancement in the mid to distal thoracic esophagus suggestive of esophagitis. Consult to GI for endoscopy, plan for EGD today Qualifiers: Chest pain type: unspecified Qualified Code(s): R07.9 - Chest pain, unspecified (3) Abnormal CT of the abdomen Current Visit: Yes Status: Acute Assessment and plan: CT Shows 1. No findings of pulmonary embolism. 2. Increased extensive circumferential wall thickening and mucosal hyperenhancement in the mid to distal thoracic esophagus suggestive of esophagitis. Underlying malignancy cannot be excluded. Consider endoscopy. 3. Mild cardiomegaly, minimal interstitial pulmonary edema, trace right pleural effusion, findings that could be related to congestive heart failure. 4. Minimal bronchial wall thickening potentially due to pulmonary vascular congestion, reactive airways disease, or bronchitis. We will consult GI for endoscopy, plan for today (4) Opioid withdrawal Current Visit: Yes Status: Suspected Assessment and plan: Suspected opioid withdrawal Currently having nausea, vomiting, shakes, tachycardia Other organic causes have been eliminated The patient has repeatedly asked for more Phenergan and pain medications Upon review of OARRS, the patient has acquired numerous prescriptions for pain medications from various locations in the past several months We will discontinue phenergan, as there have been no significant witnessed episodes of vomiting Continue Protonix BID and TID Carafate (5) Intractable nausea and vomiting Current Visit: Yes Status: Resolved Assessment and plan: Intractable nausea/vomiting related to DKA, improved As DKA resolves, the patient continues to improve on this matter There is no obvious remaining cause for N/V. Stop phenergan, continue reglan scheduled for possible gastroparesis Qualifiers: Vomiting type: unspecified Qualified Code(s): R11.2 - Nausea with vomiting , unspecified (6) Acute cystitis with hematuria Current Visit: Yes Status: Acute Assessment and plan: Acute cystitis as demonstrated on UA in ED Continue on Rocephin, day 3 (7) Abdominal pain Current Visit: Yes Status: Acute Assessment and plan: Epigastric and lower left quadrant abdominal pain CTA Chest shows esophagitis, which is likely cause of epigastric pain Increase PPI to BID dosing Consult to GI for EGD today Qualifiers: Abdominal location: generalized Qualified Code(s): R10.84 - Generalized abdominal pain (8) Dehydration Current Visit: Yes Status: Acute Assessment and plan: Volume depletion secondary to DKA, improved There is trace edema this morning, and I believe volume status is appropriately addressed (9) DVT prophylaxis Current Visit: No Status: Acute Assessment and plan: SQ Heparin (10) Esophagitis determined by endoscopy Current Visit: Yes Status: Acute Assessment and plan: Severe esophagitis as seen on EGD this morning Biopsies pending per GI Continue BID PPI, TID Carafate - Time Spent With Patient Total time spent is greater than 50% in coordination of care (as documented) at patient's floor/unit and/or counseling patient: - Subjective Interval history: The patient is seen and examined at bedside. Her recurrent DKA has now resolved , and her glucose is under control with SQ insulin. She continues to have chest pains, and nausea and vomiting. She will be undergoing EGD this morning. - Constitutional Vitals: Temp Pulse Resp BP Pulse Ox 98.4 F 110 18 168/98 97 04/03/18 08:46 04/03/18 08:46 04/03/18 08:46 04/03/18 08:46 04/03/18 08:46 General appearance: Present: mild distress, A&O X 3, answers questions appropriately Exam: Gen: Vitals noted. emotional on exam, but not teary eyed HEENT: PERRL/EOMI, oropharynx clear, Normocephalic, atraumatic Neck: Supple. No adenopathy. Cardiac: RRR, no murmur, +S1/S2 Pulmonary: CTA bilaterally, no wheezes, rales or rhonchi, equal chest expansion Abdomen: soft, Minimally tender to palpation globally (lower abdomen > upper), BS noted, no guarding Back: Nontender throughout. MSK: ROM intact, no joint swelling noted Extremities: trace BLE edema which is new from previous Neuro: A&Ox3, moves all extremities, no focal deficits Psych: Remains emotional however appears to be significantly improved where mood is concerned Internal Medicine: Result - Labs CBC & Chem 7: 04/03/18 03:23 04/03/18 03:23 Labs: Short CBC 04/03/18 Range/Units 03:23 WBC 5.9 D (4.3-11.1) K/mcL Hgb 11.5 (11.5-15.4) g/dL Hct 32.8 L (35.3-44.9) % Plt Count 160 (140-400) K/mcL Neutrophils # 3.6 (1.6-8.9) K/mcL BMP 04/02/18 04/02/18 04/02/18 12:36 15:13 20:19 Sodium 133 L 134 L 132 L Potassium 4.2 4.2 4.8 Chloride 105 105 103 Carbon Dioxide 14 L 15 L 16 L BUN 12 10 7 Creatinine 0.74 0.73 0.67 Glucose 232 H 134 H 212 H Calcium 8.0 L 8.1 L 8.0 L 04/02/18 04/03/18 23:21 03:23 Sodium 133 L 133 L Potassium 4.1 4.2 Chloride 105 103 Carbon Dioxide 17 L 19 L BUN 6 5 L Creatinine 0.62 0.61 Glucose 159 H 123 H Calcium 8.1 L 8.1 L - ABG Interpretation ABG results: PT/INR, D-dimer D-Dimer 1193 ng/mLFEU (0-500) H 04/01/18 09:31 Consult Discharge Plan - Plan Referrals: Adilson Abdullahi, [facility] [employer] [Primary Care Provider] - 04/13/18 4:30 pm () <Yohannes Bingham T - Last Filed: 04/03/18 14:49> Date of Encounter: 04/03/18 - Assessment and plan (1) Abnormal CT of the abdomen Current Visit: Yes Status: Acute (2) DVT prophylaxis Current Visit: No Status: Acute (3) Acute cystitis with hematuria Current Visit: Yes Status: Acute (4) Abdominal pain Current Visit: Yes Status: Acute Qualifiers: Abdominal location: generalized Qualified Code(s): R10.84 - Generalized abdominal pain (5) Chest pain Current Visit: Yes Status: Acute Qualifiers: Chest pain type: unspecified Qualified Code(s): R07.9 - Chest pain, unspecified (6) Dehydration Current Visit: Yes Status: Acute (7) Intractable nausea and vomiting Current Visit: Yes Status: Resolved Qualifiers: Vomiting type: unspecified Qualified Code(s): R11.2 - Nausea with vomiting , unspecified (8) DKA (diabetic ketoacidoses) Current Visit: Yes Status: Acute Qualifiers: Diabetes mellitus type: type 1 Diabetes mellitus complication detail: without coma Qualified Code(s): E10.10 - Type 1 diabetes mellitus with ketoacidosis without coma (9) Opioid withdrawal Current Visit: Yes Status: Suspected (10) Esophagitis determined by endoscopy Current Visit: Yes Status: Acute - Time Spent With Patient Total time spent is greater than 50% in coordination of care (as documented) at patient's floor/unit and/or counseling patient: - Constitutional Vitals: Temp Pulse Resp BP Pulse Ox 98.7 F 111 18 141/89 95 04/03/18 12:25 04/03/18 12:25 04/03/18 12:25 04/03/18 12:25 04/03/18 12:25 Internal Medicine: Result - Labs CBC & Chem 7: 04/03/18 03:23 04/03/18 03:23 Labs: Short CBC 04/03/18 Range/Units 03:23 WBC 5.9 D (4.3-11.1) K/mcL Hgb 11.5 (11.5-15.4) g/dL Hct 32.8 L (35.3-44.9) % Plt Count 160 (140-400) K/mcL Neutrophils # 3.6 (1.6-8.9) K/mcL BMP 04/02/18 04/02/18 04/02/18 15:13 20:19 23:21 Sodium 134 L 132 L 133 L Potassium 4.2 4.8 4.1 Chloride 105 103 105 Carbon Dioxide 15 L 16 L 17 L BUN 10 7 6 Creatinine 0.73 0.67 0.62 Glucose 134 H 212 H 159 H Calcium 8.1 L 8.0 L 8.1 L 04/03/18 03:23 Sodium 133 L Potassium 4.2 Chloride 103 Carbon Dioxide 19 L BUN 5 L Creatinine 0.61 Glucose 123 H Calcium 8.1 L - ABG Interpretation ABG results: PT/INR, D-dimer D-Dimer 1193 ng/mLFEU (0-500) H 04/01/18 09:31 - Attending Attestation I examined this patient and my medical decision-making was reviewed with the Resident Physician on 04/03/18. I agree with the documented findings, disposition and treatment plan as described except to the extent set forth below. Admitted and managed for DKA, incidental finding of severe esophagitis , OARSS report showed opiate dependence/shopping. Seen and examined at bedside, no new complains, awaiting EGD at that time. VSS, tolerating po. Exam unremarkable, plan is to ambulate patient, encourage po intake, ambulatem add carafate per GI , continue PPI BID. Can be transferred from /SDU. rest as in resident physician's documentation
[2018-04-03] MEDS: Lisinopril 20 MG TABLET PO SCH (10:41)
[2018-04-03] MEDS: Venlafaxine XR (24 HR) 150 MG CAP.ER.24H PO SCH (10:41)
[2018-04-03] MEDS: Insulin DETEMIR 100 UNIT/ML X5UNITS SQ SCH (10:41)
[2018-04-03] MEDS ORDERED: Sucralfate 1 GM TABLET PO SCH (11:30)
[2018-04-03] MEDS ORDERED: *HR* Dextrose 50 % in Water (Syg) 50 ML SYRINGE IVP PRN ×2 (11:33→17:34)
[2018-04-03] MEDS ORDERED: D5% in Water 1,000 ML IVC PRN ×2 (11:33→17:34)
[2018-04-03] MEDS ORDERED: Dextrose Gel 15 GM/37.5 ML TUBE PO PRN ×4 (11:33→17:34)
[2018-04-03] MEDS ORDERED: Metoclopramide 10 MG/10 ML UD.LIQ PO SCH (12:00)
[2018-04-03] MEDS ORDERED: Nitroglycerin 0.4 MG TAB.SUBL SL PRN (17:34)
[2018-04-03] MEDS ORDERED: Acetaminophen 325 MG TABLET PO PRN (17:34)
[2018-04-03] MEDS ORDERED: Naloxone 0.4 MG/ML INJ IVP PRN (17:34)
[2018-04-03] MEDS: Metoclopramide 10 MG/10 ML UD.LIQ PO SCH ×2 (18:05→23:39)
[2018-04-03] MEDS: Sucralfate 1 GM TABLET PO SCH (18:06)
[2018-04-03 20:57] LABS: Amphetamine Screen,Urine Negative ng/mL (Cutoff=1000); Barbiturate Screen,Urine Negative ng/mL (Cutoff=200); Benzodiazepines Screen,Urine Negative ng/mL (Cutoff=200); Cannabinoid Screen,Urine Negative ng/mL (Cutoff = 50); Cocaine Screen,Urine Negative ng/mL (Cutoff= 300); Opiate Screen,Urine Negative ng/mL (Cutoff=300); Phencyclidine Screen,Urine Negative ng/mL (Cutoff=25)
[2018-04-04 04:19] LABS: VBG HCO3 28 mEq/L (21-27); VBG PCO2 48 mmHg (41-51); VBG PH 7.38 pH Units (7.32-7.42); VBG PO2 111 mmHg (25-50)
[2018-04-04 04:29] LABS: Alanine Aminotransferase 11 Units/L (7-52); Albumin 3.3 g/dL (3.5-5.7); Albumin/Globulin Ratio 1.3 (1.1-2.2); Alkaline Phosphatase 127 Units/L (34-104); Aspartate Amino Transferase 12 Units/L (13-39); BUN/Creatinine Ratio 9 (6-26); Bilirubin,Total 0.4 mg/dL (0.3-1.0); Blood Urea Nitrogen 5 mg/dL (6-20); Calcium 8.7 mg/dL (8.6-10.3); Carbon Dioxide 26 mEq/L (23-29); Chloride 98 mEq/L (98-107); Globulin 2.5 g/dL (2.4-3.5); Glucose 228 mg/dL (70-105); Osmolality,Calculated 278 (280-300); Potassium 3.9 mEq/L (3.5-5.1); Sodium 132 mEq/L (136-145); Total Protein 5.8 g/dL (6.4-8.9); eGFR For African Americans > 60 (> 60); eGFR For Non-African Americans > 60 (> 60)
[2018-04-04] MEDS: Metoclopramide 10 MG/10 ML UD.LIQ PO SCH (05:22)
[2018-04-04] MEDS: *HR* Heparin 5,000 UNIT/ML VIAL SQ SCH (05:22)
[2018-04-04] MEDS ORDERED: Insulin LISPRO 300 UNITS/3 ML VIAL SQ SCH (07:30)
[2018-04-04 07:34] VITALS: BP 131/95
--- NOTE | 2018-04-04 08:22 | Discharge Summary ---
<Yogesh Orantes - Last Filed: 04/04/18 08:16> - NOTES TO OUTPATIENT PROVIDER Notes to Outpatient Provider: Patient had DKA which likely was the source of her nausea/vomiting. This was treated and it resolved. During the workup, she was noted to have abnormal findings in her esophagus on CT and underwent an EGD following resolution of her DKA. This found severe reflux esophagitis and medium sized hiatal hernia. It was recommended that she start carafate TID and a PPI BID. She also continued to have tachycardia while admitted and a source was not immediately identified. It was found after CTA, EKG, and resolution of her DKA to be persistent. Her OARRS was reviewed and was suggestive of opioid abuse. Her tacycardia and nausea could also be the result of withdrawal, she had recieved 1 dose of narcotics already at that point, so a UDS could not be performed. Orders not resulted at time of discharge: Pending orders 04/03/18 09:09 Cytology [PTH] Routine Surgical Pathology [PTH] Routine 04/03/18 09:30 HIV-1&2 Antibody & p24 Ag Routine Date of Encounter: 04/04/18 Time of Encounter: 07:45 - Discharge Diagnosis (1) DKA (diabetic ketoacidoses) Priority: Primary Status: Resolved Qualifiers: Diabetes mellitus type: type 1 Diabetes mellitus complication detail: without coma Qualified Code(s): E10.10 - Type 1 diabetes mellitus with ketoacidosis without coma (2) Opioid withdrawal Priority: Primary Status: Suspected (3) Abnormal CT of the abdomen Priority: Secondary Status: Acute (4) Acute cystitis with hematuria Priority: Primary Status: Acute (5) Abdominal pain Priority: Secondary Status: Resolved Qualifiers: Abdominal location: generalized Qualified Code(s): R10.84 - Generalized abdominal pain (6) Chest pain Priority: Secondary Status: Resolved Qualifiers: Chest pain type: unspecified Qualified Code(s): R07.9 - Chest pain, unspecified (7) Dehydration Priority: Secondary Status: Resolved (8) Intractable nausea and vomiting Priority: Secondary Status: Resolved Qualifiers: Vomiting type: unspecified Qualified Code(s): R11.2 - Nausea with vomiting , unspecified (9) DVT prophylaxis Priority: Secondary Status: Resolved (10) Esophagitis determined by endoscopy Priority: Primary Status: Acute Hospital course: Ms. Fish is a 42 year old female with prior medical history of diabetes type 1, migraines, and suspected opioid use presented to [place] on 04/01/18 with chest pain, tachycardia, intractable nausea and vomiting. Workup for chest pain included troponins, EKG, d-dimer, and CTA. She was negative for ACS and PE, but was found to have findings around her esophagus on CTA. Patient had DKA which likely was the source of her nausea/vomiting. This was treated with insulin drip and it resolved. During the workup, she was noted to have abnormal findings in her esophagus on CTA and underwent an EGD following resolution of her DKA. This found severe reflux esophagitis and medium sized hiatal hernia. It was recommended that she start carafate TID and a PPI BID. She also continued to have tachycardia while admitted and a source was not immediately identified. It was found after CTA, EKG, and resolution of her DKA to be persistent. Her OARRS was reviewed and was suggestive of opioid abuse. Her tacycardia and nausea could also be the result of withdrawal, she had received 1 dose of narcotics already at that point, so a UDS could not be performed. As of this morning patient is safe/stable for discharge with follow-up with her PCP for adjustment of insulin dose. Discharge discussed with: patient - Time Spent with Patient Total time spent providing and/or coordinating discharge services: Greater than 30 minutes - Discharge Medications Prescriptions: Esomeprazole Magnesium [Nexium] 40 mg PO BID #60 capsule. Insulin Glargine [Lantus] 15 unit SQ QAM #1 bottle Sucralfate [Carafate] 1 gm PO TIDAC #90 tablet Home Medications: Cyclobenzaprine [Flexeril] 10 mg PO TID 05/25/16 [History] Insulin ASPART [Novolog] 6 unit SQ TIDAC 05/25/16 [History] Venlafaxine HCl [Venlafaxine HCl ER] 150 mg PO DAILY 05/26/16 [History] Esomeprazole Magnesium [Nexium] 40 mg PO BID #60 capsule. 04/04/18 [Rx] Insulin Glargine [Lantus] 15 unit SQ QAM #1 bottle 04/04/18 [Rx] Sucralfate [Carafate] 1 gm PO TIDAC #90 tablet 04/04/18 [Rx] Allergies/Adverse Reactions: 3 Allergy/AdvReac Type Severity Reaction Status Date / Time ketorolac [From Toradol] Allergy Hives Verified 03/31/18 22:10 levofloxacin [From Levaquin] Allergy Hives Verified 03/31/18 22:10 Penicillins [PCN] Allergy Hives Verified 03/31/18 22:10 Sulfa (Sulfonamide Allergy Swelling Verified 03/31/18 22:10 Antibiotics) of Lip/Tongue/Throat sumatriptan [From Imitrex] Allergy Swelling Verified 03/31/18 22:10 of Lip/Tongue/Throat metoclopramide [From Reglan] AdvReac Nausea Verified 03/31/18 22:10 ondansetron AdvReac Nausea Verified 03/31/18 22:10 [From Zofran (as hydrochloride)] Date of admission: 04/01/18 02:18 Primary care physician: Adilson Abdullahi Discharging clinician: Yogesh Orantes Anticipated date of discharge: 04/04/18 - Constitutional Vitals: Temp Pulse Resp BP Pulse Ox 98.4 F 108 16 131/95 95 04/04/18 07:32 04/04/18 07:32 04/04/18 07:32 04/04/18 07:32 04/04/18 07:32 General appearance: Present: cooperative, A&O X 3, no acute distress, answers questions appropriately Exam: General: Cooperative, pleasant, no acute distress, alert and oriented 3, answers questions appropriately HEENT: Normocephalic, atraumatic, sclera anicteric, oral mucosa moist Respiratory: No accessory muscle usage, clear to auscultation bilaterally, no wheezes/rhonchi/rales appreciated Cardiovascular: Tachycardia, regular rhythm, S1 and S2 present, no murmurs/rubs/ gallops/clicks appreciated GI/abdominal: Nondistended, mild tenderness to palpation in the epigastric region, soft, normal bowel sounds, no peritoneal signs Extremities: No calf tenderness, no pedal edema appreciated, warm, lower extremity pulses palpable and symmetrical Neurological: Alert and oriented 3, no facial droop, no focal deficits Skin: Dry, intact, normal color - Patient Status Disposition: Home, Self-Care Condition: Good Functional capacity at discharge: independent ambulation Overall status at discharge: patient is back to baseline - Discharge Instructions Instructions: Sucralfate (By mouth), Omeprazole (By mouth), Insulin Glargine ( Injection), Diabetes Mellitus Type 2 in Adults (DC) Follow Up With: Adilson Abdullahi, [employer]PERATOR [Primary Care Provider] - 04/13/18 4:30 pm () Additional Instructions: Please return to emergency room if worsening chest pain, development of additional nausea/vomiting, or worsening of abdominal pain. Take all medications as prescribed: Carafate 3 times a day Continue Nexium, but take twice a day We will increase Lantus to 15 mg once a day Continue NovoLog Please follow-up with her PCP in 1-2 weeks - Diet and Activity Activity: increase activity as tolerated Diet: diabetic diet <Yohannes Bingham - Last Filed: 04/04/18 14:29> Orders not resulted at time of discharge: Pending orders 04/03/18 09:09 Cytology [PTH] Routine Surgical Pathology [PTH] Routine 04/03/18 09:30 HIV-1&2 Antibody & p24 Ag Routine Date of Encounter: 04/04/18 - Discharge Diagnosis (1) Abnormal CT of the abdomen Status: Acute (2) DVT prophylaxis Status: Resolved (3) Acute cystitis with hematuria Status: Acute (4) Abdominal pain Status: Resolved Qualifiers: Abdominal location: generalized Qualified Code(s): R10.84 - Generalized abdominal pain (5) Chest pain Status: Resolved Qualifiers: Chest pain type: unspecified Qualified Code(s): R07.9 - Chest pain, unspecified (6) Dehydration Status: Resolved (7) Intractable nausea and vomiting Status: Resolved Qualifiers: Vomiting type: unspecified Qualified Code(s): R11.2 - Nausea with vomiting , unspecified (8) DKA (diabetic ketoacidoses) Status: Resolved Qualifiers: Diabetes mellitus type: type 1 Diabetes mellitus complication detail: without coma Qualified Code(s): E10.10 - Type 1 diabetes mellitus with ketoacidosis without coma (9) Opioid withdrawal Status: Suspected (10) Esophagitis determined by endoscopy Status: Acute Hospital course: Ms. Fish is a 42 year old female - Time Spent with Patient Total time spent providing and/or coordinating discharge services: Date of admission: 04/01/18 02:18 Primary care physician: Adilson Abdullahi - Constitutional Vitals: Temp Pulse Resp BP Pulse Ox 98.4 F 108 16 131/95 95 04/04/18 08:45 04/04/18 08:45 04/04/18 08:45 04/04/18 08:45 04/04/18 08:45 - Attending Attestation I examined this patient and my medical decision-making was reviewed with the Resident Physician on 04/04/18. I agree with the documented findings, disposition and treatment plan as described except to the extent set forth below.
[2018-04-04] MEDS: Sucralfate 1 GM TABLET PO SCH (08:45)
[2018-04-04] MEDS ORDERED: cefTRIAXone 1,000 MG in Water for inj. (sterile) 20 ML 10 ML IVP SCH (09:00)
[2018-04-04] MEDS ORDERED: Lisinopril 20 MG TABLET PO SCH (09:00)
[2018-04-04] MEDS ORDERED: Venlafaxine XR (24 HR) 150 MG CAP.ER.24H PO SCH (09:00)
[2018-04-04] MEDS ORDERED: Insulin DETEMIR 100 UNIT/ML X5UNITS SQ SCH (09:00)
== END 2018-04-04 12:05 | disposition home or self-care (01) | DRG 638 ==
LOC: 2NNU 19:43 → EMEROO 19:43 → 2NNU 23:28
PROVIDERS: ADMIT Pediatrics; ATTEND Internal Medicine
PROC: ENDOEBX (2018-04-03 08:45)

== ENCOUNTER 2018-10-01 20:06 | Inpatient (IN) ==
--- NOTE | 2018-10-01 20:30 | Emergency Department Note ---
Disposition Clinical Impression: Diabetic gastroparesis associated with type 1 diabetes mellitus, Hyperglycemia due to type 1 diabetes mellitus, Nausea & vomiting, Chest pain Disposition: Admitted As Inpatient Abdominal Pain HPI - General Stated Complaint: high blood sugar Time Seen by Provider: 10/01/18 20:13 Source: patient Mode of arrival: EMS Limitations: no limitations Nursing Notes Reviewed: Yes Vital Signs Reviewed: Yes - History of Present Illness HPI Narrative: Pt is a 43 year old female who presents to the emergency department due to LLQ pain, nausea, and vomiting for the past 3 days. Pt states that she initially began having nausea and vomiting but started developing the abdominal pain over the past 24 hrs. Pt is also complaining of sub-sternal chest pain on the left side w/ SOB over the this time as well. Pt recently had 3 cardiac stents placed at [place] 3 weeks ago and has currently not seen cardiology for follow up and is currently only on aspirin. Pt also has a history of type 1 diabetes managed with insulin and complicated by gastroparesis managed with a gastric pacer. Pt states no previous history of complications with pacer but does state it has been in place for over 8 years. Pt has been attempting to take Finergan for the nausea but has been unable to keep anything down orally. Pt is aware of what DKA is and had a recent episode of this complication in March of this year for which she describes her symptoms as similar in nature. Furthermore, pt has extensive surgical history on her abdomen including gastric pacer, cholecystecotomy, and hysterectomy but does state she has been able to pass loose bowel movements during this time without any noticable bloody or dark stools. Pt also admits to foul swelling urine but denies any hematuria, dysuria, or previous history of kidney failure. Remainder of ROS will be documented under the appropriate header. Pt Subjective Complaint: abdominal pain Onset (ago): day(s) Consistency: constant, Worsening Location: LLQ, suprapubic Pain Severity: severe Quality: stabbing Migration to: no migration Improves with: nothing Worsens with: nothing Context: recent surgery/procedure (3 Cardiac Stents 3 weeks ago), history of similar episodes (DKA in past) Associated symptoms: Reports: nausea, vomiting, fever, chills. Denies: diarrhea, constipation, dysuria, hematemesis, hematochezia, melena, hematuria - Related Data Home Medications Medication Instructions Recorded Confirmed Insulin ASPART [Novolog] 7 unit SQ TIDAC 05/25/16 08/28/18 Aspirin [Lo-Dose Aspirin EC] 81 mg PO DAILY 08/27/18 08/28/18 Insulin Degludec [Tresiba 15 unit SQ HS 08/27/18 08/28/18 Flextouch U-200] Isosorbide MONOnitrate (24 HR) 60 mg PO DAILY 08/27/18 08/28/18 [Imdur] Metoprolol XL (24 HR) Succ [Toprol 25 mg PO DAILY 08/27/18 08/28/18 Xl] Promethazine [Phenergan] 25 mg PO Q6HR PRN 08/27/18 08/28/18 Venlafaxine XR (24 HR) [Effexor Xr] 150 mg PO DAILY 08/27/18 08/28/18 traZODone [TraZODone] 50 mg PO HS 08/27/18 08/28/18 Ammonium Lactate 1 appl TP BID 08/28/18 08/28/18 Previous Rx's Medication Instructions Recorded Esomeprazole Magnesium [Nexium] 40 mg PO BID #60 capsule. 04/04/18 Atorvastatin [Lipitor] 40 mg PO HS #30 tablet 08/28/18 Ticagrelor [Brilinta] 90 mg PO BID #60 tablet 08/28/18 Allergies Allergy/AdvReac Type Severity Reaction Status Date / Time ketorolac [From Toradol] Allergy Hives Verified 07/14/18 12:04 levofloxacin [From Levaquin] Allergy Hives Verified 07/14/18 12:04 Penicillins [PCN] Allergy Hives Verified 07/14/18 12:04 Sulfa (Sulfonamide Allergy Swelling Verified 07/14/18 12:04 Antibiotics) of Lip/Tongue/Throat sumatriptan [From Imitrex] Allergy Swelling Verified 07/14/18 12:04 of Lip/Tongue/Throat metoclopramide [From Reglan] AdvReac Nausea Verified 07/14/18 12:04 ondansetron AdvReac Nausea Verified 07/14/18 12:04 [From Zofran (as hydrochloride)] All systems ED: reviewed and negative except as stated. Review of Systems: As Per HPI Constitutional: Reports: fever, chills, weakness. Denies: weight change, night sweats Eyes: Denies: eye pain, eye discharge ENT ED: Denies: ear pain, throat pain Cardiovascular: Reports: chest pain. Denies: dyspnea on exertion, edema, syncope, paroxysmal nocturnal dyspnea Respiratory: Reports: dyspnea. Denies: cough, wheezes, hemoptysis Gastrointestinal: Reports: abdominal pain, nausea, vomiting. Denies: diarrhea, hematemesis, melena, hematochezia Genitourinary: Reports: other. Denies: urgency, dysuria, frequency, hematuria Musculoskeletal: Denies: back pain, neck pain Integumentary: Denies: rash, abrasion, lesions Neurological: Denies: headache, weakness, numbness Psychiatric: Denies: anxiety, depression Endocrine: Denies: fatigue, heat or cold intolerance Hematological/Lymphatic: Denies: easy bleeding, easy bruising Allergic/Immunologic: Denies: facial swelling, urticaria Abdominal Pain PMH - Past Medical History Medical history: Reports: coronary artery disease, diabetes, migraine Female Surgical History: Reports: cholecystectomy, hysterectomy PARTS PERSON history: Reports: no PARTS PERSON history Psychiatric history: Reports: ADHD, depression - Social History Smoking status: Never smoker Alcohol use: Reports: none Drug use: Reports: none Physical Exam - General Limitations: no limitations General appearance: alert, anxious - Head Head exam: atraumatic, normocephalic - Eye Eye exam: Present: normal appearance - Neck Neck exam: Present: normal inspection - Chest Chest inspection: Present: normal inspection, symmetric chest wall rise - Respiratory Respiratory exam: Present: normal lung sounds bilaterally. Absent: respiratory distress, wheezes, stridor - Cardiovascular Cardiovascular exam: Present: regular rate, normal rhythm, normal heart sounds. Absent: irregular rhythm, diastolic murmur, rubs, gallop - Abdominal Exam Abdominal exam: Present: soft, tenderness, guarding, normal bowel sounds. Absent: distention, rebound, rigidity Abdominal tenderness: Present: LLQ - Neurological Exam Neurological exam: Present: alert, oriented X3 - Psychiatric Psychiatric exam: Present: agitated, anxious - Skin Skin exam: Present: warm, dry, diaphoresis. Absent: intact, normal color, rash, cyanosis Course Vital Signs Temperature 99.3 F 10/01/18 20:19 Pulse Rate 124 10/01/18 20:19 Respiratory Rate 22 10/01/18 20:19 Blood Pressure 133/94 10/01/18 20:19 O2 Sat by Pulse Oximetry 95 10/01/18 20:19 Temperature 99.3 F 10/01/18 20:19 Pulse Rate 85 10/01/18 21:40 Respiratory Rate 22 10/01/18 21:00 Blood Pressure 134/57 10/01/18 21:40 O2 Sat by Pulse Oximetry 96 10/01/18 21:40 Oxygen Delivery Oxygen Delivery Room Air Abdominal Pain - Lab Data Result diagrams: 10/01/18 20:38 10/01/18 20:35 Lab Results 10/01/18 10/01/18 10/01/18 Range/Units 20:30 20:35 20:38 WBC (4.3-11.1) K/mcL RBC (3.82-4.97) M/mcL Hgb (11.5-15.4) g/dL Hct (35.3-44.9) % MCV (83.0-100.0) fL MCH (28.0-33.3) pg MCHC (31.6-35.5) g/dL RDW (11.5-14.5) % Plt Count (140-400) K/mcL MPV (9.4-12.4) fL Immature Gran % (0-4) % Seg Neutrophils % % Lymphocytes % % Monocytes % % Eosinophils % % Basophils % % Neutrophils # (1.6-8.9) K/mcL Lymphocytes # (0.6-4.6) K/mcL Monocytes # (0.0-1.3) K/mcL Eosinophils # (0.0-0.6) K/mcL Basophils # (0.0-0.2) K/mcL PT 10.7 (9.4-12.1) Seconds INR 1.0 APTT 43.1 H (26.0-36.0) Seconds VBG pH (7.32-7.42) pH Units VBG pCO2 (41-51) mmHg VBG pO2 (25-50) mmHg VBG HCO3 (21-27) mEq/L Sodium 136 (136-145) mEq/L Potassium 3.9 (3.5-5.1) mEq/L Chloride 97 L (98-107) mEq/L Carbon Dioxide 28 (23-29) mEq/L BUN 20 (6-20) mg/dL Creatinine 0.87 (0.60-1.20) mg/dL Est GFR ( Amer) > 60 (> 60) Est GFR (Non-Af Amer) > 60 (> 60) BUN/Creatinine Ratio 23 (6-26) Glucose 389 H (70-105) mg/dL POC Glucose 340 H (70-99) mg/dL Calculated Osmolality 301 H (280-300) Lactic Acid (0.5-2.2) mmol/L Calcium 9.7 (8.6-10.3) mg/dL Phosphorus 3.3 (2.7-4.5) mg/dL Magnesium 2.0 (1.6-2.6) mg/dL Total Bilirubin 0.7 (0.3-1.0) mg/dL Direct Bilirubin 0.1 (0.0-0.2) mg/dL Indirect Bilirubin 0.6 (0.0-1.2) mg/dL AST 33 (13-39) Units/L ALT 69 H (7-52) Units/L Alkaline Phosphatase 215 H (34-104) Units/L Troponin I < 0.03 (< 0.04) ng/mL Serum Total Protein 6.6 (6.4-8.9) g/dL Albumin 4.0 (3.5-5.7) g/dL Globulin 2.6 (2.4-3.5) g/dL Albumin/Globulin Ratio 1.5 (1.1-2.2) Lipase 6 L (11-82) Units/L Beta-Hydroxybutyric Acd (0.02-0.27) mmol/L 10/01/18 10/01/18 10/01/18 Range/Units 20:38 20:38 21:09 WBC 7.2 (4.3-11.1) K/mcL RBC 5.07 H (3.82-4.97) M/mcL Hgb 14.2 (11.5-15.4) g/dL Hct 41.3 (35.3-44.9) % MCV 81.5 L (83.0-100.0) fL MCH 28.0 (28.0-33.3) pg MCHC 34.4 (31.6-35.5) g/dL RDW 12.0 (11.5-14.5) % Plt Count 170 (140-400) K/mcL MPV 12.0 (9.4-12.4) fL Immature Gran % 0.3 (0-4) % Seg Neutrophils % 65.9 % Lymphocytes % 27.6 % Monocytes % 5.3 % Eosinophils % 0.6 % Basophils % 0.3 % Neutrophils # 4.7 (1.6-8.9) K/mcL Lymphocytes # 2.0 (0.6-4.6) K/mcL Monocytes # 0.4 (0.0-1.3) K/mcL Eosinophils # 0.0 (0.0-0.6) K/mcL Basophils # 0.0 (0.0-0.2) K/mcL PT (9.4-12.1) Seconds INR APTT (26.0-36.0) Seconds VBG pH (7.32-7.42) pH Units VBG pCO2 (41-51) mmHg VBG pO2 (25-50) mmHg VBG HCO3 (21-27) mEq/L Sodium (136-145) mEq/L Potassium (3.5-5.1) mEq/L Chloride (98-107) mEq/L Carbon Dioxide (23-29) mEq/L BUN (6-20) mg/dL Creatinine (0.60-1.20) mg/dL Est GFR ( Amer) (> 60) Est GFR (Non-Af Amer) (> 60) BUN/Creatinine Ratio (6-26) Glucose (70-105) mg/dL POC Glucose (70-99) mg/dL Calculated Osmolality (280-300) Lactic Acid 0.8 (0.5-2.2) mmol/L Calcium (8.6-10.3) mg/dL Phosphorus (2.7-4.5) mg/dL Magnesium (1.6-2.6) mg/dL Total Bilirubin (0.3-1.0) mg/dL Direct Bilirubin (0.0-0.2) mg/dL Indirect Bilirubin (0.0-1.2) mg/dL AST (13-39) Units/L ALT (7-52) Units/L Alkaline Phosphatase (34-104) Units/L Troponin I (< 0.04) ng/mL Serum Total Protein (6.4-8.9) g/dL Albumin (3.5-5.7) g/dL Globulin (2.4-3.5) g/dL Albumin/Globulin Ratio (1.1-2.2) Lipase (11-82) Units/L Beta-Hydroxybutyric Acd 1.26 H (0.02-0.27) mmol/L 10/01/18 Range/Units 21:12 WBC (4.3-11.1) K/mcL RBC (3.82-4.97) M/mcL Hgb (11.5-15.4) g/dL Hct (35.3-44.9) % MCV (83.0-100.0) fL MCH (28.0-33.3) pg MCHC (31.6-35.5) g/dL RDW (11.5-14.5) % Plt Count (140-400) K/mcL MPV (9.4-12.4) fL Immature Gran % (0-4) % Seg Neutrophils % % Lymphocytes % % Monocytes % % Eosinophils % % Basophils % % Neutrophils # (1.6-8.9) K/mcL Lymphocytes # (0.6-4.6) K/mcL Monocytes # (0.0-1.3) K/mcL Eosinophils # (0.0-0.6) K/mcL Basophils # (0.0-0.2) K/mcL PT (9.4-12.1) Seconds INR APTT (26.0-36.0) Seconds VBG pH 7.47 H (7.32-7.42) pH Units VBG pCO2 45 (41-51) mmHg VBG pO2 73 H (25-50) mmHg VBG HCO3 32 H (21-27) mEq/L Sodium (136-145) mEq/L Potassium (3.5-5.1) mEq/L Chloride (98-107) mEq/L Carbon Dioxide (23-29) mEq/L BUN (6-20) mg/dL Creatinine (0.60-1.20) mg/dL Est GFR ( Amer) (> 60) Est GFR (Non-Af Amer) (> 60) BUN/Creatinine Ratio (6-26) Glucose (70-105) mg/dL POC Glucose (70-99) mg/dL Calculated Osmolality (280-300) Lactic Acid (0.5-2.2) mmol/L Calcium (8.6-10.3) mg/dL Phosphorus (2.7-4.5) mg/dL Magnesium (1.6-2.6) mg/dL Total Bilirubin (0.3-1.0) mg/dL Direct Bilirubin (0.0-0.2) mg/dL Indirect Bilirubin (0.0-1.2) mg/dL AST (13-39) Units/L ALT (7-52) Units/L Alkaline Phosphatase (34-104) Units/L Troponin I (< 0.04) ng/mL Serum Total Protein (6.4-8.9) g/dL Albumin (3.5-5.7) g/dL Globulin (2.4-3.5) g/dL Albumin/Globulin Ratio (1.1-2.2) Lipase (11-82) Units/L Beta-Hydroxybutyric Acd (0.02-0.27) mmol/L
[2018-10-01] MEDS ORDERED: *HR* Promethazine 25 MG/ML VIAL IM ONE (20:37)
[2018-10-01] MEDS: 0.9 % Sodium Chloride 1,000 ML IVC SCH (21:09)
[2018-10-01 21:10] LABS: Basophils % 0.3 %; Eosinophils % 0.6 %; Hematocrit 41.3 % (35.3-44.9); Hemoglobin 14.2 g/dL (11.5-15.4); Immature Granulocytes % 0.3 % (0-4); Lymphocytes % 27.6 %; Mean Corpuscular HGB Conc 34.4 g/dL (31.6-35.5); Mean Corpuscular Volume 81.5 fL (83.0-100.0); Monocytes # 0.4 K/mcL (0.0-1.3); Monocytes % 5.3 %; Neutrophils # 4.7 K/mcL (1.6-8.9); Platelet Count 170 K/mcL (140-400); Red Blood Count 5.07 M/mcL (3.82-4.97); Segmented Neutrophils % 65.9 %
[2018-10-01 21:15] LABS: VBG HCO3 32 mEq/L (21-27); VBG PCO2 45 mmHg (41-51); VBG PH 7.47 pH Units (7.32-7.42); VBG PO2 73 mmHg (25-50)
[2018-10-01 21:18] LABS: Prothrombin Time 10.7 Seconds (9.4-12.1)
[2018-10-01 21:20] LABS: Activated Partial Thrombo Time 43.1 Seconds (26.0-36.0)
[2018-10-01] MEDS ORDERED: *HR* FentaNYL (PF) 100 MCG/2 ML VIAL IVP ONE (21:25)
[2018-10-01 21:36] LABS: Alanine Aminotransferase 69 Units/L (7-52); Albumin/Globulin Ratio 1.5 (1.1-2.2); Alkaline Phosphatase 215 Units/L (34-104); Aspartate Amino Transferase 33 Units/L (13-39); BUN/Creatinine Ratio 23 (6-26); Bilirubin,Direct 0.1 mg/dL (0.0-0.2); Bilirubin,Indirect 0.6 mg/dL (0.0-1.2); Bilirubin,Total 0.7 mg/dL (0.3-1.0); Blood Urea Nitrogen 20 mg/dL (6-20); Calcium 9.7 mg/dL (8.6-10.3); Carbon Dioxide 28 mEq/L (23-29); Chloride 97 mEq/L (98-107); Globulin 2.6 g/dL (2.4-3.5); Glucose 389 mg/dL (70-105); Lipase 6 Units/L (11-82); Osmolality,Calculated 301 (280-300); Phosphorous 3.3 mg/dL (2.7-4.5); Potassium 3.9 mEq/L (3.5-5.1); Sodium 136 mEq/L (136-145); Total Protein 6.6 g/dL (6.4-8.9); Troponin I < 0.03 ng/mL (< 0.04); eGFR For Non-African Americans > 60 (> 60)
[2018-10-01] MEDS ORDERED: *HR* Ticagrelor 90 MG TABLET PO ONE (21:55)
--- NOTE | 2018-10-01 22:18 | Emergency Department Note ---
Disposition Clinical Impression: Diabetic gastroparesis associated with type 1 diabetes mellitus, Hyperglycemia due to type 1 diabetes mellitus Nausea & vomiting Qualifiers: Vomiting type: unspecified Vomiting Intractability: intractable Qualified Code(s): R11.2 - Nausea with vomiting, unspecified Chest pain Qualifiers: Chest pain type: unspecified Qualified Code(s): R07.9 - Chest pain, unspecified Disposition: Admitted As Inpatient General Adult HPI - General Chief complaint: ED Nausea/Vomiting/Diarrhea Stated complaint: Abd pain/CP Time Seen by Provider: 10/01/18 20:13 Source: patient Mode of arrival: EMS Limitations: no limitations Nursing Notes Reviewed: Yes Vital Signs Reviewed: Yes - History of Present Illness HPI Narrative: The history, physical exam, and medical decision making was performed by the medical student either while I was physically present and actively involved or I personally re-performed the exam and medical decision making. I have verified the accuracy of the medical student's documentation with regards to the history, physical exam findings, and medical decision making. Pain Scale: 0 - Related Data Home Medications Medication Instructions Recorded Confirmed Insulin ASPART [Novolog] 7 unit SQ TIDAC 05/25/16 08/28/18 Aspirin [Lo-Dose Aspirin EC] 81 mg PO DAILY 08/27/18 08/28/18 Insulin Degludec [Tresiba 15 unit SQ HS 08/27/18 08/28/18 Flextouch U-200] Isosorbide MONOnitrate (24 HR) 60 mg PO DAILY 08/27/18 08/28/18 [Imdur] Metoprolol XL (24 HR) Succ [Toprol 25 mg PO DAILY 08/27/18 08/28/18 Xl] Promethazine [Phenergan] 25 mg PO Q6HR PRN 08/27/18 08/28/18 Venlafaxine XR (24 HR) [Effexor Xr] 150 mg PO DAILY 08/27/18 08/28/18 traZODone [TraZODone] 50 mg PO HS 08/27/18 08/28/18 Ammonium Lactate 1 appl TP BID 08/28/18 08/28/18 Previous Rx's Medication Instructions Recorded Esomeprazole Magnesium [Nexium] 40 mg PO BID #60 capsule. 04/04/18 Atorvastatin [Lipitor] 40 mg PO HS #30 tablet 08/28/18 Ticagrelor [Brilinta] 90 mg PO BID #60 tablet 08/28/18 Allergies Allergy/AdvReac Type Severity Reaction Status Date / Time ketorolac [From Toradol] Allergy Hives Verified 07/14/18 12:04 levofloxacin [From Levaquin] Allergy Hives Verified 07/14/18 12:04 Penicillins [PCN] Allergy Hives Verified 07/14/18 12:04 Sulfa (Sulfonamide Allergy Swelling Verified 07/14/18 12:04 Antibiotics) of Lip/Tongue/Throat sumatriptan [From Imitrex] Allergy Swelling Verified 07/14/18 12:04 of Lip/Tongue/Throat metoclopramide [From Reglan] AdvReac Nausea Verified 07/14/18 12:04 ondansetron AdvReac Nausea Verified 07/14/18 12:04 [From Zofran (as hydrochloride)] Constitutional: Reports: fever, chills, weakness. Denies: weight change, night sweats Eyes: Denies: eye pain, eye discharge ENT ED: Denies: ear pain, throat pain Cardiovascular: Reports: chest pain. Denies: dyspnea on exertion, edema, syncope, paroxysmal nocturnal dyspnea Respiratory: Reports: dyspnea. Denies: cough, wheezes, hemoptysis Gastrointestinal: Reports: abdominal pain, nausea, vomiting. Denies: diarrhea, hematemesis, melena, hematochezia Genitourinary: Reports: other. Denies: urgency, dysuria, frequency, hematuria Musculoskeletal: Denies: back pain, neck pain Integumentary: Denies: rash, abrasion, lesions Neurological: Denies: headache, weakness, numbness Psychiatric: Denies: anxiety, depression Endocrine: Denies: fatigue, heat or cold intolerance Hematological/Lymphatic: Denies: easy bleeding, easy bruising Allergic/Immunologic: Denies: facial swelling, urticaria Past Medical History - Past Medical History Medical history: Reports: coronary artery disease, diabetes, migraine Surgical history: Reports: cholecystectomy, hysterectomy, other Psychiatric history: Reports: ADHD, depression [employer]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 Absent: scleral icterus - ENT ENT exam: normal exam, normal oropharynx, mucous membranes dry - Neck Neck exam: Present: normal inspection. Absent: lymphadenopathy, thyromegaly - Chest Chest inspection: Present: normal inspection. Absent: tenderness - Respiratory Respiratory exam: Present: normal lung sounds bilaterally - Cardiovascular Cardiovascular exam: Present: normal rhythm, tachycardia, normal heart sounds - Abdominal Exam Abdominal exam: Present: soft, tenderness, normal bowel sounds (L mid abd with mild TTP). Absent: distention, guarding, rebound, rigidity - Extremities Exam Extremities exam: Present: normal inspection, normal capillary refill. Absent: pedal edema - Back Exam Back exam: Present: normal inspection. Absent: CVA tenderness (R), CVA tenderness (L) - Neurological Exam Neurological exam: Present: alert, oriented X3, CN II-XII intact, reflexes normal. Absent: motor sensory deficit - Psychiatric Psychiatric exam: Present: normal affect, normal mood - Skin Skin exam: Present: warm, dry, intact, normal color. Absent: rash, diaphoresis Course Vital Signs Temperature 99.3 F 10/01/18 20:19 Pulse Rate 124 10/01/18 20:19 Respiratory Rate 22 10/01/18 20:19 Blood Pressure 133/94 10/01/18 20:19 O2 Sat by Pulse Oximetry 95 10/01/18 20:19 Temperature 99.3 F 10/01/18 20:19 Pulse Rate 85 10/01/18 21:40 Respiratory Rate 22 10/01/18 21:00 Blood Pressure 134/57 10/01/18 21:40 O2 Sat by Pulse Oximetry 96 10/01/18 21:40 Oxygen Delivery Oxygen Delivery Room Air Medical Decision Making - [facility] Narrative Medical decision making narrative: Patient's 43-year-old type I diabetic who presents with intractable nausea vomiting chest pain. Patient's EKG showed a sinus tachycardia without acute ischemia. Patient did not receive aspirin on arrival as she was having intractable nausea and vomiting and has not tolerated by mouth in the last 72 hours. Concerns are for possible ischemia since she is not been able to tolerate her Brilinta and had 3 stents placed about 3 weeks ago. Patient is also hyperglycemic and concern for possible DKA so IV fluids were instituted immediately on arrival and patient was provided pain and nausea medicines IV. Patient with minimal improvement in heart rate although has not had further vomiting in the ED since being medicated. Patient's labs show a non-gapped metabolic acidosis with hyperglycemia at 398. Patient's CO2 is within normal l imits. Patient with an elevated beta hydroxybutyrate. Patient has had 2 L of fluid. Patient's troponin is within normal limits and she denies any chest pain on reevaluation. I feel patient would benefit from admission as she requires ongoing IV fluids and medication, until she can tolerate her heart medications and would benefit from repeat cardiac enzymes. Case was discussed with hospitalist to accepted the patient for admission. Patient is improved at this time and have written for a dose of her Brilinta for oral challenge. - Medical Records Medical records reviewed: Yes I reviewed the patient's medical records. - Lab Data Lab results reviewed: Yes I reviewed the patient's lab results. Result diagrams: 10/01/18 20:38 10/01/18 20:35 Lab Results 10/01/18 10/01/18 10/01/18 Range/Units 20:30 20:35 20:38 WBC (4.3-11.1) K/mcL RBC (3.82-4.97) M/mcL Hgb (11.5-15.4) g/dL Hct (35.3-44.9) % MCV (83.0-100.0) fL MCH (28.0-33.3) pg MCHC (31.6-35.5) g/dL RDW (11.5-14.5) % Plt Count (140-400) K/mcL MPV (9.4-12.4) fL Immature Gran % (0-4) % Seg Neutrophils % % Lymphocytes % % Monocytes % % Eosinophils % % Basophils % % Neutrophils # (1.6-8.9) K/mcL Lymphocytes # (0.6-4.6) K/mcL Monocytes # (0.0-1.3) K/mcL Eosinophils # (0.0-0.6) K/mcL Basophils # (0.0-0.2) K/mcL PT 10.7 (9.4-12.1) Seconds INR 1.0 APTT 43.1 H (26.0-36.0) Seconds VBG pH (7.32-7.42) pH Units VBG pCO2 (41-51) mmHg VBG pO2 (25-50) mmHg VBG HCO3 (21-27) mEq/L Sodium 136 (136-145) mEq/L Potassium 3.9 (3.5-5.1) mEq/L Chloride 97 L (98-107) mEq/L Carbon Dioxide 28 (23-29) mEq/L BUN 20 (6-20) mg/dL Creatinine 0.87 (0.60-1.20) mg/dL Est GFR ( Amer) > 60 (> 60) Est GFR (Non-Af Amer) > 60 (> 60) BUN/Creatinine Ratio 23 (6-26) Glucose 389 H (70-105) mg/dL POC Glucose 340 H (70-99) mg/dL Calculated Osmolality 301 H (280-300) Lactic Acid (0.5-2.2) mmol/L Calcium 9.7 (8.6-10.3) mg/dL Phosphorus 3.3 (2.7-4.5) mg/dL Magnesium 2.0 (1.6-2.6) mg/dL Total Bilirubin 0.7 (0.3-1.0) mg/dL Direct Bilirubin 0.1 (0.0-0.2) mg/dL Indirect Bilirubin 0.6 (0.0-1.2) mg/dL AST 33 (13-39) Units/L ALT 69 H (7-52) Units/L Alkaline Phosphatase 215 H (34-104) Units/L Troponin I < 0.03 (< 0.04) ng/mL Serum Total Protein 6.6 (6.4-8.9) g/dL Albumin 4.0 (3.5-5.7) g/dL Globulin 2.6 (2.4-3.5) g/dL Albumin/Globulin Ratio 1.5 (1.1-2.2) Lipase 6 L (11-82) Units/L Beta-Hydroxybutyric Acd (0.02-0.27) mmol/L 10/01/18 10/01/18 10/01/18 Range/Units 20:38 20:38 21:09 WBC 7.2 (4.3-11.1) K/mcL RBC 5.07 H (3.82-4.97) M/mcL Hgb 14.2 (11.5-15.4) g/dL Hct 41.3 (35.3-44.9) % MCV 81.5 L (83.0-100.0) fL MCH 28.0 (28.0-33.3) pg MCHC 34.4 (31.6-35.5) g/dL RDW 12.0 (11.5-14.5) % Plt Count 170 (140-400) K/mcL MPV 12.0 (9.4-12.4) fL Immature Gran % 0.3 (0-4) % Seg Neutrophils % 65.9 % Lymphocytes % 27.6 % Monocytes % 5.3 % Eosinophils % 0.6 % Basophils % 0.3 % Neutrophils # 4.7 (1.6-8.9) K/mcL Lymphocytes # 2.0 (0.6-4.6) K/mcL Monocytes # 0.4 (0.0-1.3) K/mcL Eosinophils # 0.0 (0.0-0.6) K/mcL Basophils # 0.0 (0.0-0.2) K/mcL PT (9.4-12.1) Seconds INR APTT (26.0-36.0) Seconds VBG pH (7.32-7.42) pH Units VBG pCO2 (41-51) mmHg VBG pO2 (25-50) mmHg VBG HCO3 (21-27) mEq/L Sodium (136-145) mEq/L Potassium (3.5-5.1) mEq/L Chloride (98-107) mEq/L Carbon Dioxide (23-29) mEq/L BUN (6-20) mg/dL Creatinine (0.60-1.20) mg/dL Est GFR ( Amer) (> 60) Est GFR (Non-Af Amer) (> 60) BUN/Creatinine Ratio (6-26) Glucose (70-105) mg/dL POC Glucose (70-99) mg/dL Calculated Osmolality (280-300) Lactic Acid 0.8 (0.5-2.2) mmol/L Calcium (8.6-10.3) mg/dL Phosphorus (2.7-4.5) mg/dL Magnesium (1.6-2.6) mg/dL Total Bilirubin (0.3-1.0) mg/dL Direct Bilirubin (0.0-0.2) mg/dL Indirect Bilirubin (0.0-1.2) mg/dL AST (13-39) Units/L ALT (7-52) Units/L Alkaline Phosphatase (34-104) Units/L Troponin I (< 0.04) ng/mL Serum Total Protein (6.4-8.9) g/dL Albumin (3.5-5.7) g/dL Globulin (2.4-3.5) g/dL Albumin/Globulin Ratio (1.1-2.2) Lipase (11-82) Units/L Beta-Hydroxybutyric Acd 1.26 H (0.02-0.27) mmol/L 10/01/18 Range/Units 21:12 WBC (4.3-11.1) K/mcL RBC (3.82-4.97) M/mcL Hgb (11.5-15.4) g/dL Hct (35.3-44.9) % MCV (83.0-100.0) fL MCH (28.0-33.3) pg MCHC (31.6-35.5) g/dL RDW (11.5-14.5) % Plt Count (140-400) K/mcL MPV (9.4-12.4) fL Immature Gran % (0-4) % Seg Neutrophils % % Lymphocytes % % Monocytes % % Eosinophils % % Basophils % % Neutrophils # (1.6-8.9) K/mcL Lymphocytes # (0.6-4.6) K/mcL Monocytes # (0.0-1.3) K/mcL Eosinophils # (0.0-0.6) K/mcL Basophils # (0.0-0.2) K/mcL PT (9.4-12.1) Seconds INR APTT (26.0-36.0) Seconds VBG pH 7.47 H (7.32-7.42) pH Units VBG pCO2 45 (41-51) mmHg VBG pO2 73 H (25-50) mmHg VBG HCO3 32 H (21-27) mEq/L Sodium (136-145) mEq/L Potassium (3.5-5.1) mEq/L Chloride (98-107) mEq/L Carbon Dioxide (23-29) mEq/L BUN (6-20) mg/dL Creatinine (0.60-1.20) mg/dL Est GFR ( Amer) (> 60) Est GFR (Non-Af Amer) (> 60) BUN/Creatinine Ratio (6-26) Glucose (70-105) mg/dL POC Glucose (70-99) mg/dL Calculated Osmolality (280-300) Lactic Acid (0.5-2.2) mmol/L Calcium (8.6-10.3) mg/dL Phosphorus (2.7-4.5) mg/dL Magnesium (1.6-2.6) mg/dL Total Bilirubin (0.3-1.0) mg/dL Direct Bilirubin (0.0-0.2) mg/dL Indirect Bilirubin (0.0-1.2) mg/dL AST (13-39) Units/L ALT (7-52) Units/L Alkaline Phosphatase (34-104) Units/L Troponin I (< 0.04) ng/mL Serum Total Protein (6.4-8.9) g/dL Albumin (3.5-5.7) g/dL Globulin (2.4-3.5) g/dL Albumin/Globulin Ratio (1.1-2.2) Lipase (11-82) Units/L Beta-Hydroxybutyric Acd (0.02-0.27) mmol/L - EKG Data EKG #1 EKG results narrative: EKG interpreted by myself without benefit of formal cardiology interpretation shows sinus tachycardia at 125 bpm patient with prolonged QT interval otherwise no acute ischemia.
[2018-10-01] MEDS ORDERED: Naloxone 0.4 MG/ML INJ IVP PRN (23:40)
[2018-10-01] MEDS ORDERED: Metoclopramide 10 MG/2 ML VIAL IVP PRN (23:44)
[2018-10-01] MEDS ORDERED: *HR* Dextrose 50 % in Water (Syg) 50 ML SYRINGE IVP PRN (23:54)
[2018-10-01] MEDS ORDERED: D5% in Water 1,000 ML IVC PRN (23:54)
[2018-10-01] MEDS ORDERED: Dextrose Gel 15 GM/37.5 ML TUBE PO PRN ×2 (23:54)
--- NOTE | 2018-10-02 00:03 | Internal Med History&Physical ---
Date of Encounter: 10/01/18 Time of Encounter: 23:58 Internal Medicine - H&P: HPI Admitted From: Home Plans for Post Hospital Care: Home History of present illness: Ms. Fish is a 43 year old female who presents to the emergency department due to LLQ pain, nausea, and vomiting for the past 3 days. Pt states that she initially began having nausea and vomiting but started developing the abdominal pain over the past 24 hrs. Pt is also complaining of sub-sternal chest pain on the left side w/ SOB over the this time as well. Pt recently had 3 cardiac stents placed at [facility] 3 weeks ago and is currently on aspirin and brillinta. Pt also has a history of type 1 diabetes managed with insulin and complicated by gastroparesis managed with a gastric pacer. Pt states no previous history of complications with pacer but does state it has been in place for over 8 years. Pt has been attempting to take phenergan for the nausea but has been unable to keep anything down orally. Pt is aware of what DKA is and had a recent episode of this complication in March of this year for which she describes her symptoms as similar in nature. Furthermore, pt has extensive surgical history on her abdomen including gastric pacer, cholecystecotomy, and hysterectomy but does state she has been able to pass loose bowel movements during this time without any noti cable bloody or dark stools. Pt also admits to foul swelling urine but denies any hematuria, dysuria, or previous history of kidney failure. At the ED, she received IV phenergan and fentanyl with relief of symptoms. She also took one dose of Brillinta. Her trops is negative and EKG is free of acute ST-T changes. Lab s also showed positive ketones but negative AG. Due to concerning for ACS and DKA, pt was will be admitted for further evaluation and management. Past Med Surg Social Fam HX - Past Medical History Medical history: coronary artery disease, diabetes, migraine Additional medical history: LUMBAR DISK DISEASE,GASTROPARESIS Psychiatric history: ADHD, depression - Past Surgical History Surgical History: cholecystectomy, hysterectomy, other Additional surgical history: CARPAL TUNNEL X 2 ON LEFT, NECK TUMOR,FISTULA REPAIR,APORT PLACEMENT - Social History Smoking Status: Never smoker Smokeless Tobacco Status: No Alcohol use: none Drug use: none - Family History Mother Living Status: Still Living Hx Family Cardiac Disorders: Yes Hx Family Respiratory Disorders: Yes Hx Family Cancer: Yes Hx Family GI Disorders: No Hx Family Endocrine Disorder: Yes Hx Family Neuromuscular Disorders: No Hx Family Neurologic Disorders: No Hx Family Autoimmune Disorders: No Father Living Status: Hx Family Cardiac Disorders: Yes Hx Family Respiratory Disorders: No Hx Family Cancer: Yes Hx Family GI Disorders: No Hx Family Endocrine Disorder: No Hx Family Neuromuscular Disorders: No Hx Family Neurologic Disorders: No Hx Family HEENT Disorders: Yes (Anuerysm of head) Hx Family Autoimmune Disorders: No Internal Medicine - H&P: Meds Insulin ASPART [Novolog] 7 unit SQ TIDAC 05/25/16 [History] Esomeprazole Magnesium [Nexium] 40 mg PO BID #60 capsule. 04/04/18 [Rx] Aspirin [Lo-Dose Aspirin EC] 81 mg PO DAILY 08/27/18 [History] Insulin Degludec [Tresiba Flextouch U-200] 15 unit SQ HS 08/27/18 [History] Isosorbide MONOnitrate (24 HR) [Imdur] 60 mg PO DAILY 08/27/18 [History] Metoprolol XL (24 HR) Succ [Toprol Xl] 25 mg PO DAILY 08/27/18 [History] Promethazine [Phenergan] 25 mg PO Q6HR PRN 08/27/18 [History] Venlafaxine XR (24 HR) [Effexor Xr] 150 mg PO DAILY 08/27/18 [History] traZODone [TraZODone] 50 mg PO HS 08/27/18 [History] Ammonium Lactate 1 appl TP BID 08/28/18 [History] Atorvastatin [Lipitor] 40 mg PO HS #30 tablet 08/28/18 [Rx] Ticagrelor [Brilinta] 90 mg PO BID #60 tablet 08/28/18 [Rx] Allergy/AdvReac Type Severity Reaction Status Date / Time ketorolac [From Toradol] Allergy Hives Verified 07/14/18 12:04 levofloxacin [From Levaquin] Allergy Hives Verified 07/14/18 12:04 Penicillins [PCN] Allergy Hives Verified 07/14/18 12:04 Sulfa (Sulfonamide Allergy Swelling Verified 07/14/18 12:04 Antibiotics) of Lip/Tongue/Throat sumatriptan [From Imitrex] Allergy Swelling Verified 07/14/18 12:04 of Lip/Tongue/Throat metoclopramide [From Reglan] AdvReac Nausea Verified 07/14/18 12:04 ondansetron AdvReac Nausea Verified 07/14/18 12:04 [From Zofran (as hydrochloride)] All Systems PM: A 10-system review of systems was performed and is negative for pertinent findings except as documented above in the HPI. Review of systems: REVIEW OF SYSTEMS: CONSTITUTIONAL: No weight loss, fever, chills, weakness or fatigue. HEENT: Eyes: No visual loss, blurred vision, double vision or yellow sclerae. Ears, Nose, Throat: No hearing loss, sneezing, congestion, runny nose or sore throat. SKIN: No rash or itching. CARDIOVASCULAR: see HPI. RESPIRATORY: No shortness of breath, cough or sputum. GASTROINTESTINAL: see HPI GENITOURINARY: No dysuria, urgency, or frequency. NEUROLOGICAL: No headache, dizziness, syncope, paralysis, ataxia, numbness or tingling in the extremities. No change in bowel or bladder control. MUSCULOSKELETAL: No muscle, back pain, joint pain or stiffness. HEMATOLOGIC: No anemia, bleeding or bruising. LYMPHATICS: No enlarged nodes. No history of splenectomy. PSYCHIATRIC: No history of depression or anxiety. ENDOCRINOLOGIC: No reports of sweating, cold or heat intolerance. No polyuria or polydipsia. - Constitutional Vitals: Temp Pulse Resp BP Pulse Ox 99.3 F 85 22 134/57 96 10/01/18 20:19 10/01/18 21:40 10/01/18 22:46 10/01/18 22:46 10/01/18 21:40 General appearance: Present: cooperative, A&O X 3, answers questions appropriately Exam: PHYSICAL EXAMINATION: GENERAL APPEARANCE: The patient is alert, oriented and in no acute distress. HEENT: Head is normocephalic. The sinuses are nontender. Pupils are equal and reactive. The nares are patent. Oropharynx clear without lesions. NECK: Supple without lymphadenopathy. HEART: Regular rate and rhythm. LUNGS: No crackles or wheezes are heard. ABDOMEN: Soft, nontender, nondistended with good bowel sounds heard. Inguinal area is normal. EXTREMITIES: Without cyanosis, clubbing or edema. NEUROLOGICAL: Gross nonfocal. SKIN: Warm and dry without any rash. Internal Med - H&P Results - Labs CBC & Chem 7: 10/01/18 20:38 10/01/18 20:35 Labs: Short CBC 10/01/18 Range/Units 20:38 WBC 7.2 (4.3-11.1) K/mcL Hgb 14.2 (11.5-15.4) g/dL Hct 41.3 (35.3-44.9) % Plt Count 170 (140-400) K/mcL Neutrophils # 4.7 (1.6-8.9) K/mcL BMP 10/01/18 20:35 Sodium 136 Potassium 3.9 Chloride 97 L Carbon Dioxide 28 BUN 20 Creatinine 0.87 Glucose 389 H Calcium 9.7 Cardiac Enzymes 10/01/18 Range/Units 20:35 Troponin I < 0.03 (< 0.04) ng/mL Liver Function 10/01/18 Range/Units 20:35 Total Bilirubin 0.7 (0.3-1.0) mg/dL Direct Bilirubin 0.1 (0.0-0.2) mg/dL AST 33 (13-39) Units/L ALT 69 H (7-52) Units/L Alkaline Phosphatase 215 H (34-104) Units/L Albumin 4.0 (3.5-5.7) g/dL - ABG Interpretation ABG results: 10/01/18 21:12 VBG pH 7.47 H VBG pCO2 45 VBG pO2 73 H VBG HCO3 32 H - Impressions ITS Impressions Chest X-Ray 10/01/18 20:25 IMPRESSION: Stable chest x-ray. No acute disease. D/ / Mason Duque MD / Mason Duque MD Interpreting Provider: Mason Duque MD - Assessment and plan (1) Intractable nausea and vomiting Current Visit: Yes Status: Acute Assessment and plan: 43-year-old female with past medical history of type 1 diabetes, gastroparesis status post gastric pacemaker, CAD with recent stents placement, and obesity presented with acute onset of intractable nausea and vomiting. Patient had a similar events in the past and she attributes this to her gastroparesis. She recently had a left-sided cardiac catheter with 2 stents placed, discharged home with aspirin and Brilinta, she was not able to taper and Brilinta for 3 days due to severe nausea/vomiting. - Patient symptoms likely due to worsening gastroparesis, although she does have gastric pacemaker in place. She also has associated abdominal pain at the left lower quadrant and epigastric region. - Her blood glucose level was elevated with positive ketone, however, lab results not support the diagnosis of DKA. Positive ketone likely due to poor by mouth intake and nausea/vomiting. We will continue home basal insulin, started patient on insulin sliding scale, clear liquid diet and advance as tolerated. - Patient was started on IV Reglan and Phenergan for symptoms control. Will continue IV fluid. Continue to monitor blood glucose and ketone. Qualifiers: Vomiting type: unspecified Qualified Code(s): R11.2 - Nausea with vomiting, unspecified (2) CAD (coronary artery disease) Current Visit: No Status: Chronic Assessment and plan: patient recent had left heart catheter with 2 stents placement, she has not taken Brilinta and aspirin for 3 days due to GI symptoms. ACS was suspected, however, labs revealed normal troponin, as well as unremarkable EKG. Patient took one Brilinta at the ED. We will make sure patient continue to take dual antiplatelet agents. Continue telemetry monitoring and cycling troponin. Qualifiers: Coronary Disease-Associated Artery/Lesion type: [place] artery [place] vs. transplanted heart: [place] heart Associated angina: without angina Qualified Code(s): I25.10 - Atherosclerotic heart disease of [place] coronary artery without angina pectoris (3) Uncontrolled type 1 diabetes mellitus Current Visit: No Status: Acute Assessment and plan: Pressure level was significantly elevated upon admission. However, lab results do not support a diagnosis of DKA. We will continue basal insulin, started patient on insulin sliding scale, continue monitoring electrolytes and ketone. Qualifiers: Qualified Code(s): E10.65 - Type 1 diabetes mellitus with hyperglycemia (4) Diabetic gastroparesis associated with type 1 diabetes mellitus Current Visit: No Status: Chronic Assessment and plan: Continue symptomatic support with IV Reglan and Phenergan. (5) Obesity (BMI 30-39.9) Current Visit: No Status: Chronic Assessment and plan: Weight reduction education provided. (6) DVT prophylaxis Current Visit: Yes Status: Acute Assessment and plan: Heparin subcutaneous. - Time Spent With Patient Total time spent is 90 mins, greater than 50% in coordination of care (as documented) at patient's floor/unit and/or counseling patient. Greater than 35 minutes
[2018-10-02] MEDS: *HR* OxyCODONE/APAP 5/325 TABLET PO PRN ×3 (00:13→21:08)
[2018-10-02] MEDS: *HR* Promethazine 25 MG/ML VIAL IVP PRN ×4 (00:14→19:31)
[2018-10-02] MEDS: 0.9 % Sodium Chloride 1,000 ML IVC SCH ×4 (00:26→21:08)
[2018-10-02 04:46] LABS: Basophils # 0.1 K/mcL (0.0-0.2); Basophils % 0.7 %; Eosinophils # 0.1 K/mcL (0.0-0.6); Eosinophils % 1.2 %; Hematocrit 37.7 % (35.3-44.9); Immature Granulocytes % 0.1 % (0-4); Lymphocytes # 3.3 K/mcL (0.6-4.6); Lymphocytes % 43.9 %; Mean Corpuscular HGB Conc 33.2 g/dL (31.6-35.5); Mean Corpuscular Hemoglobin 27.9 pg (28.0-33.3); Mean Corpuscular Volume 84.2 fL (83.0-100.0); Mean Platelet Volume 11.6 fL (9.4-12.4); Monocytes # 0.6 K/mcL (0.0-1.3); Monocytes % 7.6 %; Neutrophils # 3.5 K/mcL (1.6-8.9); Platelet Count 164 K/mcL (140-400); Red Blood Count 4.48 M/mcL (3.82-4.97); Red Cell Distribution Width 12.1 % (11.5-14.5); Segmented Neutrophils % 46.5 %
[2018-10-02 04:48] LABS: Hemoglobin 12.5 g/dL (11.5-15.4)
[2018-10-02 05:03] LABS: BUN/Creatinine Ratio 25 (6-26); Blood Urea Nitrogen 19 mg/dL (6-20); Calcium 8.6 mg/dL (8.6-10.3); Carbon Dioxide 31 mEq/L (23-29); Chloride 104 mEq/L (98-107); Glucose 271 mg/dL (70-105); Osmolality,Calculated 302 (280-300); Potassium 3.6 mEq/L (3.5-5.1); Sodium 140 mEq/L (136-145); eGFR For Non-African Americans > 60 (> 60)
[2018-10-02] MEDS: *HR* Heparin 5,000 UNIT/ML VIAL SQ SCH ×2 (05:55→17:52)
[2018-10-02] MEDS ORDERED: traMADol 50 MG TABLET PO PRN (10:55)
[2018-10-02] MEDS: Pantoprazole 40 MG VIAL IVP SCH (11:08)
[2018-10-02] MEDS: Metoprolol XL (24 HR) Succ 25 MG TAB.ER.24H PO SCH (11:08)
[2018-10-02] MEDS: Isosorbide MONOnitrate (24 HR) 60 MG TAB.ER.24H PO SCH (11:08)
[2018-10-02] MEDS: Aspirin Enteric Coated 81 MG Tablet PO SCH (11:08)
[2018-10-02] MEDS: *HR* Ticagrelor 90 MG TABLET PO SCH ×2 (11:09→21:07)
[2018-10-02] MEDS: Ammonium Lactate 30 APPL/225 GM BOTTLE TP SCH ×2 (11:10→21:09)
[2018-10-02] MEDS: Insulin LISPRO 300 UNITS/3 ML VIAL SQ SCH ×3 (11:16→17:51)
[2018-10-02] MEDS: MORPHINE SUL Oral CONC 10 MG/0.5 ML ORAL.SYG SL PRN ×2 (11:48→17:51)
[2018-10-02 12:16] LABS: Troponin I < 0.03 ng/mL (< 0.04)
[2018-10-02 12:33] LABS: Bilirubin,Urine Negative (Negative); Blood,Urine Small (Negative); Clarity,Urine Cloudy (Clear); Color,Urine Yellow (Yellow); Glucose,Urine (UA) Normal (Normal); Ketones,Urine Negative (Negative); Leukocyte Esterase,Urine Large (Negative); Nitrite,Urine Negative (Negative); Protein,Urine 30 mg/dL (Neg-Trace); Specific Gravity,Urine 1.018 (1.010-1.025); Urobilinogen,Urine Normal (Normal)
[2018-10-02 12:36] LABS: Bacteria,Urine Many per hpf (None-Few); Hyaline Casts,Urine None Seen per lpf (None-Few); Squamous Epithelial Cell,Urine Many per lpf (None-Few); WBC,Urine TNTC per hpf (0-3)
[2018-10-02] MEDS: Venlafaxine XR (24 HR) 150 MG CAP.ER.24H PO SCH (12:43)
[2018-10-02 12:44] LABS: Amphetamine Screen,Urine Negative ng/mL (Cutoff=1000); Barbiturate Screen,Urine Negative ng/mL (Cutoff=200); Benzodiazepines Screen,Urine Negative ng/mL (Cutoff=200); Cannabinoid Screen,Urine Negative ng/mL (Cutoff = 50); Cocaine Screen,Urine Negative ng/mL (Cutoff= 300); Opiate Screen,Urine Negative ng/mL (Cutoff=300); Phencyclidine Screen,Urine Negative ng/mL (Cutoff=25)
[2018-10-02 12:57] LABS: RBC,Urine 0-3 per hpf (0-3)
[2018-10-02 12:58] LABS: Yeast,Urine Few per hpf (None Seen)
[2018-10-02] MEDS ORDERED: Isovue-370 500 ML INFUS..BTL IV ONE (16:04)
--- NOTE | 2018-10-02 17:27 | Electrocardiograph Report ---
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
--- NOTE | 2018-10-02 18:19 | Internal Med Progress Note ---
<WalkerGertrude - Last Filed: 10/02/18 18:16> Hospitalist Progress Note - Encounter Date of Encounter: 10/02/18 Time of Encounter: 18:16 - Subjective Interval History: Patient seen and examined at bedside resting, but in mild distress secondary to nausea and left lower quadrant pain. States that she has felt nauseous and has been vomiting for the past 3 days. Notes multiple episodes of vomiting last night, non-bloody, non-bilious. However, has not vomited since then. States abdominal pain in LLQ began 24 hours ago, described as sharp, worse with palpation and non-radiating. Denies fevers/chills, headaches, blurry vision, SOB, chest pain, dysuria. States she prefers phenergan for nausea, because she gets nauseous when taking Zofran or Reglan. Pt has hx of diabetic gastroparesis with gastric pacer, and recent had cardiac stents placed 3 weeks ago. - Exam Vitals: Temp Pulse Resp BP Pulse Ox 97.9 F 99 14 108/83 97 10/02/18 16:47 10/02/18 16:47 10/02/18 16:47 10/02/18 16:47 10/02/18 16:47 Exam: GEN: AOx3, mild distress secondary to nausea and abd pain HEENT: Atraumatic, Normocephalic, EOMI CARDIO: RRR, CTAB, no rubs, murmurs, gallups RESP: CTAB, no wheezes, rales, rhonchi ABD: Tenderness to palpation in LLQ, soft, non-distended; bowel sounds present; No RLQ tenderness; Knifley sign negative; No rebound tenderness or guarding NEURO: CN 2-12 intact; No focal deficits EXT: No lower extremity edema b/l - Assessment and Plan (1) Intractable nausea and vomiting Current Visit: Yes Status: Acute Assessment and Plan: 43 y/o F with PMHx significant for CAD, DM type I with gastroparesis, cholecystectomy, hysterectomy presents with 3 days nausea and vomiting, and 24 hrs LLQ pain. Hx L. Heart Cath 3 weeks ago - on dual antiplatelet therapy, but has not taken meds for 3 days due to N/V Hx Diabetic gastroparesis with gastric pacer PE: LLQ tender to palpation, no rebound tenderness or guarding Nausea responds to Phenergan In ED: Vitals stable; pt afebrile; Glucose = 273; Trops negative; EKG showed no ST changes; Positive ketones, but negative anion gap; CXR - no acute disease PLAN: CT Abd/Pelvis with contrast - eval for diverticulitis Cont sliding scale insulin Cont IV fluids Phenergan for nausea Pain Control (2) CAD (coronary artery disease) Current Visit: No Status: Chronic Assessment and Plan: Pt underwent recent left heart cath with stent placement - but has not taken Brilinta or aspirin for 3 days due to n/v Trops negative EKG: No acute ST changes PLAN: Cont aspirin, lipitor, metoprolol, brillinta (3) Uncontrolled type 1 diabetes mellitus Current Visit: No Status: Acute Assessment and Plan: Cont insulin sliding scale and basal insulin ADvance diet as tolerated Cont IV fluids Monitor electrolytes and ketones (4) Diabetic gastroparesis associated with type 1 diabetes mellitus Current Visit: No Status: Chronic Assessment and Plan: Cont symptomatic tx with Phenergan for nausea Insulin sliding scale and basal insulin (5) Obesity (BMI 30-39.9) Current Visit: No Status: Chronic (6) DVT prophylaxis Current Visit: Yes Status: Acute Assessment and Plan: Heparin 5000 U q12h (7) Elevated serum hCG Current Visit: Yes Status: Acute Assessment and Plan: Hx of hysterectomy, but patient does not recollect if it was complete or partial Initial HCG in ED: positive Serum Hcg = 6 (slightly elevated) Transvaginal U/S: Status post hysterectomy and bilateral oophorectomy. No evidence of an ectopic . No acute abnormality in the pelvis. Abdominal U/S: Negative abdominal ultrasound. DVT Prophylaxis: Heparin 5000 U q12h - Time Spent with Patient Total time spent is greater than 50% in coordination of care (as documented) at patient's floor/unit and/or counseling patient: less than 15 minutes Plan of Care Discussed with: patient Internal Medicine: Result - Labs CBC & Chem 7: 10/02/18 04:20 10/02/18 04:20 Labs: Short CBC 10/01/18 10/02/18 Range/Units 20:38 04:20 WBC 7.2 7.5 (4.3-11.1) K/mcL Hgb 14.2 12.5 D (11.5-15.4) g/dL Hct 41.3 37.7 (35.3-44.9) % Plt Count 170 164 (140-400) K/mcL Neutrophils # 4.7 3.5 (1.6-8.9) K/mcL BMP 10/01/18 10/02/18 20:35 04:20 Sodium 136 140 Potassium 3.9 3.6 Chloride 97 L 104 Carbon Dioxide 28 31 H BUN 20 19 Creatinine 0.87 0.77 Glucose 389 H 271 H Calcium 9.7 8.6 Cardiac Enzymes 10/01/18 10/02/18 10/02/18 Range/Units 20:35 00:06 04:20 Troponin I < 0.03 < 0.03 < 0.03 (< 0.04) ng/mL 10/02/18 Range/Units 11:45 Troponin I < 0.03 (< 0.04) ng/mL Liver Function 10/01/18 Range/Units 20:35 Total Bilirubin 0.7 (0.3-1.0) mg/dL Direct Bilirubin 0.1 (0.0-0.2) mg/dL AST 33 (13-39) Units/L ALT 69 H (7-52) Units/L Alkaline Phosphatase 215 H (34-104) Units/L Albumin 4.0 (3.5-5.7) g/dL Urine 10/02/18 Range/Units 12:15 Urine Color Yellow (Yellow) Urine Clarity Cloudy A (Clear) Urine pH 7.0 (5.0-8.0) pH Units Ur Specific [place] 1.018 (1.010-1.025) Urine Protein 30 H (Neg-Trace) mg/dL Urine Glucose (UA) Normal (Normal) mg/dL - ABG Interpretation ABG results: PT/INR, D-dimer PT 10.7 Seconds (9.4-12.1) 10/01/18 20:38 - Impressions Impressions Chest X-Ray 10/01/18 20:25 IMPRESSION: Stable chest x-ray. No acute disease. D/ / Mason Duque MD / Mason Duque MD Interpreting Provider: Mason Duque MD Obstetrics Ultrasound 10/02/18 08:03 IMPRESSION: Status post hysterectomy and bilateral oophorectomy. No evidence of an ectopic . No acute abnormality in the pelvis. D/ / David Camacho MD / David Camacho MD Interpreting Provider: David Camacho MD Abdomen Ultrasound 10/02/18 08:05 IMPRESSION: Negative abdominal ultrasound. D/ / Marybeth Troncoso MD / Marybeth Troncoso MD Interpreting Provider: Marybeth Troncoso MD Consult Discharge Plan - Plan Referrals: NONE,PCP [Primary Care Provider] - <Ari Zapien - Last Filed: 10/03/18 07:15> Hospitalist Progress Note - Encounter Date of Encounter: 10/03/18 - Exam Vitals: Temp Pulse Resp BP Pulse Ox 97.6 F 90 16 99/67 93 10/03/18 04:05 10/03/18 04:05 10/03/18 04:05 10/03/18 04:05 10/03/18 04:05 - Assessment and Plan (1) DVT prophylaxis Current Visit: Yes Status: Acute (2) Uncontrolled type 1 diabetes mellitus Current Visit: No Status: Acute (3) Obesity (BMI 30-39.9) Current Visit: No Status: Chronic (4) Intractable nausea and vomiting Current Visit: Yes Status: Acute (5) Diabetic gastroparesis associated with type 1 diabetes mellitus Current Visit: No Status: Chronic (6) CAD (coronary artery disease) Current Visit: No Status: Chronic - Time Spent with Patient Total time spent is greater than 50% in coordination of care (as documented) at patient's floor/unit and/or counseling patient: Internal Medicine: Result - Labs CBC & Chem 7: 10/03/18 03:42 10/03/18 03:42 Labs: Short CBC 10/03/18 Range/Units 03:42 WBC 5.7 (4.3-11.1) K/mcL Hgb 11.6 (11.5-15.4) g/dL Hct 35.8 (35.3-44.9) % Plt Count 138 L (140-400) K/mcL Neutrophils # 4.0 (1.6-8.9) K/mcL BMP 10/03/18 03:42 Sodium 137 Potassium 4.4 Chloride 104 Carbon Dioxide 27 BUN 15 Creatinine 0.89 Glucose 401 H Calcium 8.2 L Cardiac Enzymes 10/02/18 Range/Units 11:45 Troponin I < 0.03 (< 0.04) ng/mL Urine 10/02/18 Range/Units 12:15 Urine Color Yellow (Yellow) Urine Clarity Cloudy A (Clear) Urine pH 7.0 (5.0-8.0) pH Units Ur Specific [place] 1.018 (1.010-1.025) Urine Protein 30 H (Neg-Trace) mg/dL Urine Glucose (UA) Normal (Normal) mg/dL - ABG Interpretation ABG results: PT/INR, D-dimer PT 10.7 Seconds (9.4-12.1) 10/01/18 20:38 - Impressions Impressions Obstetrics Ultrasound 10/02/18 08:03 IMPRESSION: Status post hysterectomy and bilateral oophorectomy. No evidence of an ectopic . No acute abnormality in the pelvis. D/ / David Camacho MD / David Camacho MD Interpreting Provider: David Camacho MD Abdomen Ultrasound 10/02/18 08:05 IMPRESSION: Negative abdominal ultrasound. D/ / Marybeth Troncoso MD / Marybeth Troncoso MD Interpreting Provider: Marybeth Troncoso MD Abdomen/Pelvis CT 10/02/18 19:30 IMPRESSION: 1. No evidence of colonic diverticulosis or acute diverticulitis. 2. Nonspecific mild right hemiabdomen fluid opacified small bowel loops and ascending colon. This could relate to possible mild enterocolitis. There is no obstruction, perforation, or evidence of a internal hernia. The visceral arteries are patent. 3. There is stable mild celiac axis hypodense wall thickening compared to the prior exam and a 2016 exam. This could relate to atheromatous changes or possible mild chronic arthritis. 4. Gastric stimulator in place with no evidence of an acute complication. 5. Stable chronic changes along the posterior left lateral rectal wall which could relate to possible thrombosed hemorrhoids. D/ / 10/02/2018 19:33:02 Donn Matthews MD / magaly Interpreting Provider: Donn Matthews MD - Attending Attestation I saw and assessed this patient and agree with plan per resident Plan Abdominal pain likely 2/2 to gastroparesis. Continue IV fluids and symptomatic control Query ectopic . TVUS negative <Gertrdue Walker - Last Filed: 10/02/18 18:16> (1) Intractable nausea and vomiting Qualifiers: Vomiting type: unspecified Qualified Code(s): R11.2 - Nausea with vomiting, unspecified (2) CAD (coronary artery disease) Qualifiers: Coronary Disease-Associated Artery/Lesion type: [place] artery [place] vs. transplanted heart: [place] heart Associated angina: without angina Qualified Code(s): I25.10 - Atherosclerotic heart disease of [place] coronary artery without angina pectoris (3) Uncontrolled type 1 diabetes mellitus Qualifiers: Qualified Code(s): E10.65 - Type 1 diabetes mellitus with hyperglycemia <Ari Zapien - Last Filed: 10/03/18 07:15> (2) Uncontrolled type 1 diabetes mellitus Qualifiers: Qualified Code(s): E10.65 - Type 1 diabetes mellitus with hyperglycemia (4) Intractable nausea and vomiting Qualifiers: Vomiting type: unspecified Qualified Code(s): R11.2 - Nausea with vomiting, unspecified (6) CAD (coronary artery disease) Qualifiers: Coronary Disease-Associated Artery/Lesion type: [place] artery [place] vs. transplanted heart: [place] heart Associated angina: without angina Qualified Code(s): I25.10 - Atherosclerotic heart disease of [place] coronary artery without angina pectoris
[2018-10-02] MEDS ORDERED: Insulin DETEMIR 100 UNIT/ML X5UNITS SQ SCH (21:00)
[2018-10-02] MEDS ORDERED: Insulin LISPRO 300 UNITS/3 ML VIAL SQ SCH (21:00)
[2018-10-02] MEDS: traZODone 50 MG TABLET PO SCH (21:07)
[2018-10-03] MEDS: 0.9 % Sodium Chloride 1,000 ML IVC SCH ×3 (01:36→19:18)
[2018-10-03] MEDS: *HR* Promethazine 25 MG/ML VIAL IVP PRN ×4 (02:14→22:29)
[2018-10-03] MEDS: *HR* OxyCODONE/APAP 5/325 TABLET PO PRN ×3 (03:34→22:28)
[2018-10-03 04:03] LABS: Basophils % 0.5 %; Eosinophils # 0.1 K/mcL (0.0-0.6); Eosinophils % 0.9 %; Hematocrit 35.8 % (35.3-44.9); Hemoglobin 11.6 g/dL (11.5-15.4); Immature Granulocytes % 0.2 % (0-4); Lymphocytes # 1.4 K/mcL (0.6-4.6); Lymphocytes % 24.3 %; Mean Corpuscular HGB Conc 32.4 g/dL (31.6-35.5); Mean Corpuscular Hemoglobin 27.7 pg (28.0-33.3); Mean Corpuscular Volume 85.4 fL (83.0-100.0); Mean Platelet Volume 11.7 fL (9.4-12.4); Monocytes # 0.3 K/mcL (0.0-1.3); Monocytes % 4.7 %; Platelet Count 138 K/mcL (140-400); Red Blood Count 4.19 M/mcL (3.82-4.97); Red Cell Distribution Width 11.9 % (11.5-14.5); Segmented Neutrophils % 69.4 %
[2018-10-03 04:20] LABS: BUN/Creatinine Ratio 17 (6-26); Blood Urea Nitrogen 15 mg/dL (6-20); Calcium 8.2 mg/dL (8.6-10.3); Carbon Dioxide 27 mEq/L (23-29); Chloride 104 mEq/L (98-107); Glucose 401 mg/dL (70-105); Osmolality,Calculated 302 (280-300); Potassium 4.4 mEq/L (3.5-5.1); Sodium 137 mEq/L (136-145); eGFR For Non-African Americans > 60 (> 60)
[2018-10-03] MEDS ORDERED: Insulin DETEMIR 100 UNIT/ML X5UNITS SQ SCH (04:30)
[2018-10-03] MEDS ORDERED: Insulin LISPRO 300 UNITS/3 ML VIAL SQ SCH ×3 (04:30→21:30)
[2018-10-03] MEDS: *HR* Heparin 5,000 UNIT/ML VIAL SQ SCH ×2 (05:08→16:19)
[2018-10-03] MEDS: *HR* Ticagrelor 90 MG TABLET PO SCH ×2 (08:29→20:37)
[2018-10-03] MEDS: Metoprolol XL (24 HR) Succ 25 MG TAB.ER.24H PO SCH (08:29)
[2018-10-03] MEDS: Aspirin Enteric Coated 81 MG Tablet PO SCH (08:29)
[2018-10-03] MEDS: Isosorbide MONOnitrate (24 HR) 60 MG TAB.ER.24H PO SCH (08:29)
[2018-10-03] MEDS: Venlafaxine XR (24 HR) 150 MG CAP.ER.24H PO SCH (08:30)
[2018-10-03] MEDS: Pantoprazole 40 MG VIAL IVP SCH (08:30)
[2018-10-03] MEDS: MetroNIDAZOLE 500 MG/100 ML 500 MG/100 ML BAG IVPB SCH ×3 (08:31→16:22)
[2018-10-03] MEDS: Insulin LISPRO 300 UNITS/3 ML VIAL SQ SCH ×3 (08:32→16:47)
[2018-10-03] MEDS: Aztreonam 1,000 MG in Water for inj. (sterile) 20 ML 10 ML IVP SCH ×2 (08:52→16:19)
[2018-10-03] MEDS ORDERED: Dextrose Gel 15 GM/37.5 ML TUBE PO ONE (10:46)
[2018-10-03] MEDS: Ammonium Lactate 30 APPL/225 GM BOTTLE TP SCH ×2 (11:23→20:37)
--- NOTE | 2018-10-03 11:35 | Internal Med Progress Note ---
Hospitalist Progress Note - Encounter Date of Encounter: 10/03/18 Time of Encounter: 08:00 - Exam Vitals: Temp Pulse Resp BP Pulse Ox 97.9 F 91 16 104/66 95 10/03/18 07:36 10/03/18 07:36 10/03/18 07:36 10/03/18 07:36 10/03/18 07:36 Exam: GEN: AOx3, mild distress secondary to nausea and abd pain HEENT: Atraumatic, Normocephalic, EOMI CARDIO: RRR, CTAB, no rubs, murmurs, gallups RESP: CTAB, no wheezes, rales, rhonchi ABD: Tenderness to palpation in LLQ, soft, non-distended; bowel sounds present; No RLQ tenderness; O'Neals sign negative; No rebound tenderness or guarding NEURO: CN 2-12 intact; No focal deficits EXT: No lower extremity edema b/l - Assessment and Plan (1) Gastroenteritis Current Visit: Yes Status: Acute Assessment and Plan: CT scan shows findings suggestive of mild enterocolitis. No bowel obstruction Start on aztreonam and flagyl. Obtain stool panel. Possible discharge in am on po antibiotics if stable (2) Diabetic gastroparesis associated with type 1 diabetes mellitus Current Visit: No Status: Chronic Assessment and Plan: Continue symptomatic support with IV Phenergan. Improved (3) Uncontrolled type 1 diabetes mellitus Current Visit: No Status: Acute Assessment and Plan: Pressure level was significantly elevated upon admission. We will continue basal insulin, started patient on insulin sliding scale, continue monitoring electrolytes and ketone. (4) Obesity (BMI 30-39.9) Current Visit: No Status: Chronic Assessment and Plan: Weight reduction education provided. (5) Intractable nausea and vomiting Current Visit: Yes Status: Acute Assessment and Plan: Likely 2/2 to acute gastroenteritis and diabetic gastroparesis IV fluids, symptomatic control, antibiotics (6) CAD (coronary artery disease) Current Visit: No Status: Chronic Assessment and Plan: Continue aspirin and brillinta (7) DVT prophylaxis Current Visit: Yes Status: Acute Assessment and Plan: Heparin subcutaneous. - Time Spent with Patient Total time spent is greater than 50% in coordination of care (as documented) at patient's floor/unit and/or counseling patient: Internal Medicine: Result - Labs CBC & Chem 7: 10/03/18 03:42 10/03/18 03:42 Labs: Short CBC 10/03/18 Range/Units 03:42 WBC 5.7 (4.3-11.1) K/mcL Hgb 11.6 (11.5-15.4) g/dL Hct 35.8 (35.3-44.9) % Plt Count 138 L (140-400) K/mcL Neutrophils # 4.0 (1.6-8.9) K/mcL BMP 10/03/18 03:42 Sodium 137 Potassium 4.4 Chloride 104 Carbon Dioxide 27 BUN 15 Creatinine 0.89 Glucose 401 H Calcium 8.2 L Cardiac Enzymes 10/02/18 Range/Units 11:45 Troponin I < 0.03 (< 0.04) ng/mL Urine 10/02/18 Range/Units 12:15 Urine Color Yellow (Yellow) Urine Clarity Cloudy A (Clear) Urine pH 7.0 (5.0-8.0) pH Units Ur Specific [place] 1.018 (1.010-1.025) Urine Protein 30 H (Neg-Trace) mg/dL Urine Glucose (UA) Normal (Normal) mg/dL - ABG Interpretation ABG results: PT/INR, D-dimer PT 10.7 Seconds (9.4-12.1) 10/01/18 20:38 - Impressions Impressions Obstetrics Ultrasound 10/02/18 08:03 IMPRESSION: Status post hysterectomy and bilateral oophorectomy. No evidence of an ectopic . No acute abnormality in the pelvis. D/ / David Camacho MD / David Camacho MD Interpreting Provider: David Camacho MD Abdomen Ultrasound 10/02/18 08:05 IMPRESSION: Negative abdominal ultrasound. D/ / Marybeth Troncoso MD / Marybeth Troncoso MD Interpreting Provider: Marybeth Troncoso MD Abdomen/Pelvis CT 10/02/18 19:30 IMPRESSION: 1. No evidence of colonic diverticulosis or acute diverticulitis. 2. Nonspecific mild right hemiabdomen fluid opacified small bowel loops and ascending colon. This could relate to possible mild enterocolitis. There is no obstruction, perforation, or evidence of a internal hernia. The visceral arteries are patent. 3. There is stable mild celiac axis hypodense wall thickening compared to the prior exam and a 2016 exam. This could relate to atheromatous changes or possible mild chronic arthritis. 4. Gastric stimulator in place with no evidence of an acute complication. 5. Stable chronic changes along the posterior left lateral rectal wall which could relate to possible thrombosed hemorrhoids. D/ / 10/02/2018 19:33:02 Donn Matthews MD / magaly Interpreting Provider: Donn Matthews MD Consult Discharge Plan - Plan Referrals: NONE,PCP [Primary Care Provider] - (3) Uncontrolled type 1 diabetes mellitus Qualifiers: Qualified Code(s): E10.65 - Type 1 diabetes mellitus with hyperglycemia (5) Intractable nausea and vomiting Qualifiers: Vomiting type: unspecified Qualified Code(s): R11.2 - Nausea with vomiting, unspecified (6) CAD (coronary artery disease) Qualifiers: Coronary Disease-Associated Artery/Lesion type: [place] artery [place] vs. transplanted heart: [place] heart Associated angina: without angina Qualified Code(s): I25.10 - Atherosclerotic heart disease of [place] coronary artery without angina pectoris
[2018-10-03 17:42] LABS: BUN/Creatinine Ratio 17 (6-26); Blood Urea Nitrogen 15 mg/dL (6-20); Calcium 8.1 mg/dL (8.6-10.3); Carbon Dioxide 25 mEq/L (23-29); Chloride 99 mEq/L (98-107); Glucose 632 mg/dL (70-105); Osmolality,Calculated 300 (280-300); Potassium 4.8 mEq/L (3.5-5.1); Sodium 130 mEq/L (136-145); eGFR For Non-African Americans > 60 (> 60)
[2018-10-03] MEDS ORDERED: D5% in 0.45% NACL 1,000 ML IVC PRN (17:57)
[2018-10-03] MEDS ORDERED: *HR* Dextrose 50 % in Water (Syg) 50 ML SYRINGE IVP PRN (17:57)
[2018-10-03] MEDS ORDERED: Insulin Regular, Human 100 UNIT/ML IV PRN (17:57)
[2018-10-03] MEDS ORDERED: 0.9 % Sodium Chloride 1,000 ML IVC SCH (18:00)
[2018-10-03] MEDS ORDERED: Insulin Human Regular 100 UNIT in 0.9 % Sodium Chloride 100 ML IVC SCH ×2 (18:00→19:00)
[2018-10-03] MEDS ORDERED: 0.45 % Sodium Chloride w/KCl 20 MEQ/1,000 ML MLS IVC SCH (18:00)
[2018-10-03 19:36] LABS: VBG HCO3 27 mEq/L (21-27); VBG PCO2 51 mmHg (41-51); VBG PH 7.34 pH Units (7.32-7.42); VBG PO2 84 mmHg (25-50)
[2018-10-03] MEDS: traZODone 50 MG TABLET PO SCH (20:35)
[2018-10-04] MEDS: MORPHINE SUL Oral CONC 10 MG/0.5 ML ORAL.SYG SL PRN (03:22)
[2018-10-04] MEDS: Aztreonam 1,000 MG in Water for inj. (sterile) 20 ML 10 ML IVP SCH ×2 (03:23→08:47)
[2018-10-04] MEDS: 0.9 % Sodium Chloride 1,000 ML IVC SCH ×2 (03:24→09:00)
[2018-10-04] MEDS: MetroNIDAZOLE 500 MG/100 ML 500 MG/100 ML BAG IVPB SCH ×2 (03:24→08:48)
[2018-10-04] MEDS: *HR* Promethazine 25 MG/ML VIAL IVP PRN ×2 (04:29→10:50)
[2018-10-04] MEDS: *HR* Heparin 5,000 UNIT/ML VIAL SQ SCH (07:08)
[2018-10-04] MEDS ORDERED: Insulin DETEMIR 100 UNIT/ML X5UNITS SQ ONE (07:45)
[2018-10-04] MEDS: Insulin LISPRO 300 UNITS/3 ML VIAL SQ SCH ×2 (08:46→10:51)
[2018-10-04] MEDS: Metoprolol XL (24 HR) Succ 25 MG TAB.ER.24H PO SCH (08:47)
[2018-10-04] MEDS: Isosorbide MONOnitrate (24 HR) 60 MG TAB.ER.24H PO SCH (08:47)
[2018-10-04] MEDS: Aspirin Enteric Coated 81 MG Tablet PO SCH (08:47)
[2018-10-04] MEDS: Pantoprazole 40 MG VIAL IVP SCH (08:47)
[2018-10-04] MEDS: *HR* Ticagrelor 90 MG TABLET PO SCH (08:47)
[2018-10-04] MEDS: Venlafaxine XR (24 HR) 150 MG CAP.ER.24H PO SCH (08:47)
[2018-10-04] MEDS: Ammonium Lactate 30 APPL/225 GM BOTTLE TP SCH (08:48)
[2018-10-04 09:40] LABS: BUN/Creatinine Ratio 20 (6-26); Blood Urea Nitrogen 17 mg/dL (6-20); Calcium 8.1 mg/dL (8.6-10.3); Carbon Dioxide 26 mEq/L (23-29); Chloride 103 mEq/L (98-107); Glucose 428 mg/dL (70-105); Osmolality,Calculated 302 (280-300); Potassium 4.4 mEq/L (3.5-5.1); Sodium 136 mEq/L (136-145); eGFR For Non-African Americans > 60 (> 60)
[2018-10-04] MEDS: *HR* OxyCODONE/APAP 5/325 TABLET PO PRN (10:50)
[2018-10-04 11:04] VITALS: BP 118/76
--- NOTE | 2018-10-04 11:52 | Discharge Summary ---
Date of Encounter: 10/04/18 Time of Encounter: 11:45 - Discharge Diagnosis (1) Gastroenteritis Priority: Primary Status: Acute Assessment and Plan: 43 year old female with pmh of type 1 dabetes who presents to the emergency depa rtment due to LLQ pain, nausea, and vomiting for the past 3 days. Pt states that she initially began having nausea and vomiting but started developing the abdominal pain over the past 24 hrs. She was assessed with likely diabetic gastroparesis and started on Iv reglan round the clock. She continued to complain of abdominal pain and it was noted she had apositive test and borderline elevated HCG, even though she has a history of hysterectomy. Transvaginal ultrasound to rule out ectopic / any tumors came back negative. CT scan was done and showed findings suggestive of mild enterocolitis. No bowel obstruction. She was started on aztreonam and flagyl and showed an improvement. She was discharged on a course of flagyl. (2) Diabetic gastroparesis associated with type 1 diabetes mellitus Priority: Primary Status: Chronic (3) Obesity (BMI 30-39.9) Priority: Primary Status: Chronic (4) Intractable nausea and vomiting Priority: Primary Status: Acute Qualifiers: Vomiting type: unspecified Qualified Code(s): R11.2 - Nausea with vomiting, unspecified (5) CAD (coronary artery disease) Priority: Primary Status: Chronic Qualifiers: Coronary Disease-Associated Artery/Lesion type: [place] artery [place] vs. transplanted heart: [place] heart Associated angina: without angina Qualified Code(s): I25.10 - Atherosclerotic heart disease of [place] coronary artery without angina pectoris (6) DVT prophylaxis Priority: Primary Status: Acute Hospital course: Ms. Fish is a 43 year old female - Time Spent with Patient Total time spent providing and/or coordinating discharge services: - Discharge Medications Prescriptions: metroNIDAZOLE [Metronidazole] 500 mg PO TID 7 Days #21 tablet OxyCODONE/APAP 5/325 [Percocet 5/325 MG] 1 each PO Q6H PRN 5 Days #15 tablet PRN Reason: Pain Home Medications: Insulin ASPART [Novolog] 7 unit SQ TIDAC 05/25/16 [History] Esomeprazole Magnesium [Nexium] 40 mg PO BID #60 capsule. 04/04/18 [Rx] Aspirin [Lo-Dose Aspirin EC] 81 mg PO DAILY 08/27/18 [History] Insulin Degludec [Tresiba Flextouch U-200] 15 unit SQ HS 08/27/18 [History] Isosorbide MONOnitrate (24 HR) [Imdur] 60 mg PO DAILY 08/27/18 [History] Metoprolol XL (24 HR) Succ [Toprol Xl] 25 mg PO DAILY 08/27/18 [History] Promethazine [Phenergan] 25 mg PO Q6HR PRN 08/27/18 [History] Venlafaxine XR (24 HR) [Effexor Xr] 150 mg PO DAILY 08/27/18 [History] Ammonium Lactate 1 appl TP BID 08/28/18 [History] Atorvastatin [Lipitor] 40 mg PO HS #30 tablet 08/28/18 [Rx] Ticagrelor [Brilinta] 90 mg PO BID #60 tablet 08/28/18 [Rx] Rizatriptan Benzoate [[employer]] 10 mg PO DAILY PRN 10/02/18 [History] Tizanidine HCl 4 mg PO BID 10/02/18 [History] OxyCODONE/APAP 5/325 [Percocet 5/325 MG] 1 each PO Q6H PRN 5 Days #15 tablet 10/04/18 [Rx] metroNIDAZOLE [Metronidazole] 500 mg PO TID 7 Days #21 tablet 10/04/18 [Rx] Allergies/Adverse Reactions: Allergy/AdvReac Type Severity Reaction Status Date / Time ketorolac [From Toradol] Allergy Hives Verified 07/14/18 12:04 levofloxacin [From Levaquin] Allergy Hives Verified 07/14/18 12:04 Penicillins [PCN] Allergy Hives Verified 07/14/18 12:04 Sulfa (Sulfonamide Allergy Swelling Verified 07/14/18 12:04 Antibiotics) of Lip/Tongue/Throat sumatriptan [From Imitrex] Allergy Swelling Verified 07/14/18 12:04 of Lip/Tongue/Throat metoclopramide [From Reglan] AdvReac Nausea Verified 07/14/18 12:04 ondansetron AdvReac Nausea Verified 07/14/18 12:04 [From Zofran (as hydrochloride)] Date of admission: 10/03/18 15:12 Primary care physician: PCP NONE - Constitutional Vitals: Temp Pulse Resp BP Pulse Ox 98.2 F 105 16 118/76 93 10/04/18 11:02 10/04/18 11:02 10/04/18 11:02 10/04/18 11:02 10/04/18 11:02 General appearance: Present: cooperative, A&O X 3, answers questions appropriately Exam: GEN: AOx3, mild distress secondary to nausea and abd pain HEENT: Atraumatic, Normocephalic, EOMI CARDIO: RRR, CTAB, no rubs, murmurs, gallups RESP: CTAB, no wheezes, rales, rhonchi ABD: Tenderness to palpation in LLQ, soft, non-distended; bowel sounds present; No RLQ tenderness; Circle sign negative; No rebound tenderness or guarding NEURO: CN 2-12 intact; No focal deficits EXT: No lower extremity edema b/l - Patient Status Disposition: Home, Self-Care Condition: Good - Discharge Instructions Follow Up With: NONE,PCP [Primary Care Provider] - Forms: ED Satisfaction Letter
== END 2018-10-04 15:30 | disposition home or self-care (01) | DRG 74 ==
LOC: 2SOUTHHOLD 20:06 → EMEROOARM 20:06 → 2SOUTHHOLD 22:55 → 2ANU 10-02 19:23
PROVIDERS: ADMIT Internal Medicine; ATTEND Internal Medicine

== ENCOUNTER 2018-12-12 05:57 | Inpatient (IN) ==
[2018-12-12] MEDS ORDERED: *HR* Promethazine 25 MG/ML VIAL IVP ONE ×2 (06:20→08:12)
[2018-12-12] MEDS ORDERED: *HR* FentaNYL (PF) 100 MCG/2 ML VIAL IVP ONE (06:20)
[2018-12-12] MEDS ORDERED: 0.9 % Sodium Chloride 1,000 ML IVC ONE ×2 (06:20→07:56)
[2018-12-12 06:36] LABS: VBG HCO3 30 mEq/L (21-27); VBG PCO2 48 mmHg (41-51); VBG PH 7.41 pH Units (7.32-7.42); VBG PO2 73 mmHg (25-50)
--- NOTE | 2018-12-12 06:36 | Emergency Department Note ---
Disposition Clinical Impression: Hyperglycemia Intractable nausea and vomiting Qualifiers: Vomiting type: unspecified Qualified Code(s): R11.2 - Nausea with vomiting, u nspecified Abdominal pain Qualifiers: Abdominal location: left lower quadrant Qualified Code(s): R10.32 - Left lower quadrant pain Disposition: Admitted As Inpatient Condition: Fair Referrals: NONE,PCP [Primary Care Provider] - Time of Disposition: 08:42 General Adult HPI - General Stated complaint: hyperglycemia Time Seen by Provider: 12/12/18 06:00 Source: patient Mode of arrival: EMS Limitations: no limitations Nursing Notes Reviewed: Yes Vital Signs Reviewed: Yes - History of Present Illness HPI Narrative: Alert and oriented nontoxic-appearing 43-year-old female with a history of gastroparesis secondary to diabetes presents for evaluation of ongoing and worsening left lower quadrant abdominal pain, nausea, vomiting, elevated blood glucose levels at home, as well as nonradiating left-sided chest pain. She has a history of a gastric stimulator placed some time ago at the [facility]. She states that she has not followed up with the [facility] regarding this stimulator in several years. The patient was recently admitted to this facility on 12/04/18 and discharged on 12/09/18 for similar complaints. Review of records from that visit show that hospital staff had worked with the patient to ensure follow-up with the [facility] on discharge however the patient states that she has not yet been able to complete his follow-up arrangements. She states elevated blood glucose levels at home as measured by her glucometer as reading "high". She states that her machine reads high for any level above 600. She states that this pain has gradually worsened ever since the day of her discharge on the . She denies any fever or chills. She denies any productive cough or shortness of breath. She denies any diarrhea or constipation. She denies any hematochezia, melena, or hematemesis. She states that both the abdominal and chest pain are similar in characteristics and intensity to what she was experiencing during her most recent hospitalization. She underwent a CT of the abdomen and pelvis without contrast on 12/05/18. Review of the CT report shows no significant abnormalities in the abdomen or pelvis. She states 8 episodes of vomiting this morning prior to calling the ambulance. She states her vomiting has been refractory to her oral Phenergan at home. Onset (ago): day(s) Location: chest, abdomen Radiation: non-radiation Pain Severity: severe, similar to prior episodes Pain Scale: 10 Quality: constant Consistency: Worsening Improves with: nothing Worsens with: nothing Associated symptoms: Reports: nausea/vomiting. Denies: fever/chills, shortness of breath - Related Data Home Medications Medication Instructions Recorded Confirmed Insulin ASPART [Novolog] 6 unit SQ TIDAC 05/25/16 12/07/18 Aspirin [Lo-Dose Aspirin EC] 81 mg PO DAILY 08/27/18 12/07/18 Insulin Degludec [Tresiba 12 unit SQ BID 08/27/18 12/07/18 Flextouch U-200] Metoprolol XL (24 HR) Succ [Toprol 25 mg PO DAILY 08/27/18 12/07/18 Xl] Venlafaxine XR (24 HR) [Effexor Xr] 150 mg PO DAILY 08/27/18 12/07/18 Rizatriptan Benzoate [Maxalt Door Opener] 10 mg PO DAILY PRN 10/02/18 12/07/18 Tizanidine HCl 8 mg PO HS PRN 10/02/18 12/07/18 traZODone [TraZODone] 100 mg PO HS 11/20/18 12/07/18 Ammonium Lactate 1 appl TP BID 12/07/18 12/07/18 Previous Rx's Medication Instructions Recorded Esomeprazole Magnesium [Nexium] 40 mg PO BID #60 capsule. 04/04/18 Ticagrelor [Brilinta] 90 mg PO BID #60 tablet 08/28/18 Atorvastatin [Lipitor] 40 mg PO HS #30 tablet 12/09/18 Promethazine [Phenergan] 25 mg PO Q6HR PRN #45 tablet 12/09/18 Allergies Allergy/AdvReac Type Severity Reaction Status Date / Time ketorolac [From Toradol] Allergy Hives Verified 12/04/18 20:11 levofloxacin [From Levaquin] Allergy Hives Verified 12/04/18 20:11 Penicillins [PCN] Allergy Hives Verified 12/04/18 20:11 Sulfa (Sulfonamide Allergy Swelling Verified 12/04/18 20:11 Antibiotics) of Lip/Tongue/Throat sumatriptan [From Imitrex] Allergy Swelling Verified 12/04/18 20:11 of Lip/Tongue/Throat metoclopramide [From Reglan] AdvReac Nausea Verified 12/04/18 20:11 ondansetron AdvReac Nausea Verified 12/04/18 20:11 [From Zofran (as hydrochloride)] All systems ED: reviewed and negative except as stated. Review of Systems: As Per HPI Constitutional: Denies: fever, chills, weakness, weight change Eyes: Denies: eye pain, eye discharge, vision change ENT ED: Denies: ear pain, throat pain, dental pain, hearing loss, epistaxis, congestion, dysphagia Cardiovascular: Reports: as per HPI, chest pain. Denies: palpitations, dyspnea on exertion, edema, syncope Respiratory: Denies: cough, dyspnea, wheezes, hemoptysis, stridor Gastrointestinal: Reports: as per HPI, abdominal pain, nausea, vomiting. Denies: diarrhea, constipation, hematemesis, melena, hematochezia Genitourinary: Denies: dysuria, frequency, hematuria, discharge Musculoskeletal: Denies: back pain, neck pain, arthralgia, myalgia Integumentary: Denies: rash, abrasion, lesions Neurological: Denies: headache, weakness, numbness, paresthesias, confusion, abnormal gait, vertigo Psychiatric: Denies: anxiety, depression, suicidal thoughts, homicidal thoughts, auditory hallucinations, visual hallucinations Endocrine: Denies: fatigue Hematological/Lymphatic: Denies: easy bleeding, easy bruising Allergic/Immunologic: Denies: facial swelling, urticaria Past Medical History - Past Medical History Attestation: Yes The following information was validated with the patient. Source: patient, old records reviewed, nursing notes reviewed Medical history: Reports: coronary artery disease, diabetes, migraine Surgical history: Reports: cholecystectomy, hysterectomy, other Psychiatric history: Reports: ADHD, depression SITE SUPERINTENDENT history: Reports: no SITE SUPERINTENDENT history - Social History Smoking Status: Never smoker Smokeless Tobacco Status: No Alcohol use: Reports: none Drug use: Reports: none Physical Exam - General Limitations: no limitations General appearance: alert, other (Tearful) - Head Head exam: atraumatic, normocephalic, normal inspection - Eye Eye exam: Present: normal appearance, PERRL, EOMI. Absent: nystagmus - ENT ENT exam: mucous membranes moist - Neck Neck exam: Present: normal inspection, full ROM, trachea midline - Chest Chest inspection: Present: normal inspection, symmetric chest wall rise - Respiratory Respiratory exam: Present: normal lung sounds bilaterally. Absent: respiratory distress, wheezes, stridor, accessory muscle use, prolonged expiratory phase - Cardiovascular Cardiovascular exam: Present: normal rhythm, tachycardia, normal heart sounds - Abdominal Exam Abdominal exam: Present: soft, tenderness, normal bowel sounds. Absent: diste ntion, guarding, rebound, rigidity Abdominal tenderness: Present: LLQ, moderate - Extremities Exam Extremities exam: Present: normal inspection, full ROM - Neurological Exam Neurological exam: Present: alert, oriented X3, normal gait - Psychiatric Psychiatric exam: Present: normal affect, normal mood - Skin Skin exam: Present: warm, dry, intact, normal color. Absent: rash Course - Reevaluation(s) Reevaluation #1: Nausea persists despite IV phenergan. Haldol, 2mg IVP has been ordered. Time: 07:27 Reevaluation #2: The patient states no improvement after the administration of IV Haldol for her nausea. She states in fact that she thinks that the nausea is worse now. We will repeat a dose of IV Phenergan. The patient will be admitted to the hospitalist service for further management of her abdominal pain and intractable nausea. I have discussed this plan with Dr. Cortez. Dr. Cortez has had a [id number] evaluation with the patient and agrees with this plan. Time: 08:30 - Consultations Consultation #1: I spoke with Dr. Jean, admitting hospitalist. He has accepted the patient for admission to the hospitalist care. Time: 08:38 Vital Signs Temperature 97.4 F L 12/12/18 06:34 Pulse Rate 117 12/12/18 06:34 Respiratory Rate 18 12/12/18 06:34 Blood Pressure 112/86 12/12/18 06:34 O2 Sat by Pulse Oximetry 99 12/12/18 06:34 Temperature 97.4 F L 12/12/18 06:34 Pulse Rate 106 12/12/18 08:24 Respiratory Rate 20 12/12/18 08:24 Blood Pressure 103/71 12/12/18 08:24 O2 Sat by Pulse Oximetry 95 12/12/18 08:24 Oxygen Delivery Oxygen Delivery Room Air Medical Decision Making - Medical Records Medical records reviewed: Yes I reviewed the patient's medical records. - Lab Data Lab results reviewed: Yes I reviewed the patient's lab results. Lab results narrative: Lab Results 12/12/18 12/12/18 12/12/18 Range/Units 06:22 06:22 06:22 WBC 6.4 (4.3-11.1) K/mcL RBC 4.76 (3.82-4.97) M/mcL Hgb 13.5 (11.5-15.4) g/dL Hct 41.3 (35.3-44.9) % MCV 86.8 (83.0-100.0) fL MCH 28.4 (28.0-33.3) pg MCHC 32.7 (31.6-35.5) g/dL RDW 12.2 (11.5-14.5) % Plt Count 188 (140-400) K/mcL MPV 12.0 (9.4-12.4) fL Immature Gran % 0.3 (0-4) % Seg Neutrophils % 68.4 % Lymphocytes % 21.5 % Monocytes % 7.7 % Eosinophils % 1.3 % Basophils % 0.8 % Neutrophils # 4.4 (1.6-8.9) K/mcL Lymphocytes # 1.4 (0.6-4.6) K/mcL Monocytes # 0.5 (0.0-1.3) K/mcL Eosinophils # 0.1 (0.0-0.6) K/mcL Basophils # 0.1 (0.0-0.2) K/mcL VBG pH (7.32-7.42) pH Units VBG pCO2 (41-51) mmHg VBG pO2 (25-50) mmHg VBG HCO3 (21-27) mEq/L Sodium 127 L (136-145) mEq/L Potassium 4.5 (3.5-5.1) mEq/L Chloride 87 L (98-107) mEq/L Carbon Dioxide 28 (23-29) mEq/L BUN 22 H (6-20) mg/dL Creatinine 1.09 (0.60-1.20) mg/dL Est GFR ( Amer) > 60 (> 60) Est GFR (Non-Af Amer) 55 L (> 60) BUN/Creatinine Ratio 20 (6-26) Glucose 811 H* (70-105) mg/dL Calculated Osmolality 307 H (280-300) Lactic Acid (0.5-2.2) mmol/L Calcium 9.3 (8.6-10.3) mg/dL Total Bilirubin 0.7 (0.3-1.0) mg/dL AST 16 (13-39) Units/L ALT 18 (7-52) Units/L Alkaline Phosphatase 145 H (34-104) Units/L Troponin I < 0.03 (< 0.04) ng/mL Serum Total Protein 6.5 (6.4-8.9) g/dL Albumin 3.6 (3.5-5.7) g/dL Globulin 2.9 (2.4-3.5) g/dL Albumin/Globulin Ratio 1.2 (1.1-2.2) Lipase 28 (11-82) Units/L Beta-Hydroxybutyric Acd 1.27 H (0.02-0.27) mmol/L Urine Color (Yellow) Urine Clarity (Clear) Urine pH (5.0-8.0) pH Units Ur Specific Adel (1.010-1.025) Urine Protein (Neg-Trace) mg/dL Urine Glucose (UA) (Normal) mg/dL Urine Ketones (Negative) mg/dL Urine Blood (Negative) Urine Nitrite (Negative) Urine Bilirubin (Negative) Urine Urobilinogen (Normal) mg/dL Ur Leukocyte Esterase (Negative) Ur Culture Indicated? (NO) 12/12/18 12/12/18 12/12/18 Range/Units 06:22 06:33 06:49 WBC (4.3-11.1) K/mcL RBC (3.82-4.97) M/mcL Hgb (11.5-15.4) g/dL Hct (35.3-44.9) % MCV (83.0-100.0) fL MCH (28.0-33.3) pg MCHC (31.6-35.5) g/dL RDW (11.5-14.5) % Plt Count (140-400) K/mcL MPV (9.4-12.4) fL Immature Gran % (0-4) % Seg Neutrophils % % Lymphocytes % % Monocytes % % Eosinophils % % Basophils % % Neutrophils # (1.6-8.9) K/mcL Lymphocytes # (0.6-4.6) K/mcL Monocytes # (0.0-1.3) K/mcL Eosinophils # (0.0-0.6) K/mcL Basophils # (0.0-0.2) K/mcL VBG pH 7.41 (7.32-7.42) pH Units VBG pCO2 48 (41-51) mmHg VBG pO2 73 H (25-50) mmHg VBG HCO3 30 H (21-27) mEq/L Sodium (136-145) mEq/L Potassium (3.5-5.1) mEq/L Chloride (98-107) mEq/L Carbon Dioxide (23-29) mEq/L BUN (6-20) mg/dL Creatinine (0.60-1.20) mg/dL Est GFR ( Amer) (> 60) Est GFR (Non-Af Amer) (> 60) BUN/Creatinine Ratio (6-26) Glucose (70-105) mg/dL Calculated Osmolality (280-300) Lactic Acid 1.4 (0.5-2.2) mmol/L Calcium (8.6-10.3) mg/dL Total Bilirubin (0.3-1.0) mg/dL AST (13-39) Units/L ALT (7-52) Units/L Alkaline Phosphatase (34-104) Units/L Troponin I (< 0.04) ng/mL Serum Total Protein (6.4-8.9) g/dL Albumin (3.5-5.7) g/dL Globulin (2.4-3.5) g/dL Albumin/Globulin Ratio (1.1-2.2) Lipase (11-82) Units/L Beta-Hydroxybutyric Acd (0.02-0.27) mmol/L Urine Color Yellow (Yellow) Urine Clarity Clear (Clear) Urine pH 5.5 (5.0-8.0) pH Units Ur Specific Adel > 1.030 H (1.010-1.025) Urine Protein Negative (Neg-Trace) mg/dL Urine Glucose (UA) >=1000 H (Normal) mg/dL Urine Ketones 15 H (Negative) mg/dL Urine Blood Negative (Negative) Urine Nitrite Negative (Negative) Urine Bilirubin Negative (Negative) Urine Urobilinogen Normal (Normal) mg/dL Ur Leukocyte Esterase Negative (Negative) Ur Culture Indicated? NO (NO) Result diagrams: 12/12/18 06:22 12/12/18 06:22 Lab Results 12/12/18 12/12/18 12/12/18 Range/Units 06:22 06:22 06:22 WBC 6.4 (4.3-11.1) K/mcL RBC 4.76 (3.82-4.97) M/mcL Hgb 13.5 (11.5-15.4) g/dL Hct 41.3 (35.3-44.9) % MCV 86.8 (83.0-100.0) fL MCH 28.4 (28.0-33.3) pg MCHC 32.7 (31.6-35.5) g/dL RDW 12.2 (11.5-14.5) % Plt Count 188 (140-400) K/mcL MPV 12.0 (9.4-12.4) fL Immature Gran % 0.3 (0-4) % Seg Neutrophils % 68.4 % Lymphocytes % 21.5 % Monocytes % 7.7 % Eosinophils % 1.3 % Basophils % 0.8 % Neutrophils # 4.4 (1.6-8.9) K/mcL Lymphocytes # 1.4 (0.6-4.6) K/mcL Monocytes # 0.5 (0.0-1.3) K/mcL Eosinophils # 0.1 (0.0-0.6) K/mcL Basophils # 0.1 (0.0-0.2) K/mcL VBG pH (7.32-7.42) pH Units VBG pCO2 (41-51) mmHg VBG pO2 (25-50) mmHg VBG HCO3 (21-27) mEq/L Sodium 127 L (136-145) mEq/L Potassium 4.5 (3.5-5.1) mEq/L Chloride 87 L (98-107) mEq/L Carbon Dioxide 28 (23-29) mEq/L BUN 22 H (6-20) mg/dL Creatinine 1.09 (0.60-1.20) mg/dL Est GFR ( Amer) > 60 (> 60) Est GFR (Non-Af Amer) 55 L (> 60) BUN/Creatinine Ratio 20 (6-26) Glucose 811 H* (70-105) mg/dL Calculated Osmolality 307 H (280-300) Lactic Acid (0.5-2.2) mmol/L Calcium 9.3 (8.6-10.3) mg/dL Total Bilirubin 0.7 (0.3-1.0) mg/dL AST 16 (13-39) Units/L ALT 18 (7-52) Units/L Alkaline Phosphatase 145 H (34-104) Units/L Troponin I < 0.03 (< 0.04) ng/mL Serum Total Protein 6.5 (6.4-8.9) g/dL Albumin 3.6 (3.5-5.7) g/dL Globulin 2.9 (2.4-3.5) g/dL Albumin/Globulin Ratio 1.2 (1.1-2.2) Lipase 28 (11-82) Units/L Beta-Hydroxybutyric Acd 1.27 H (0.02-0.27) mmol/L Urine Color (Yellow) Urine Clarity (Clear) Urine pH (5.0-8.0) pH Units Ur Specific Adel (1.010-1.025) Urine Protein (Neg-Trace) mg/dL Urine Glucose (UA) (Normal) mg/dL Urine Ketones (Negative) mg/dL Urine Blood (Negative) Urine Nitrite (Negative) Urine Bilirubin (Negative) Urine Urobilinogen (Normal) mg/dL Ur Leukocyte Esterase (Negative) Ur Culture Indicated? (NO) 12/12/18 12/12/18 12/12/18 Range/Units 06:22 06:33 06:49 WBC (4.3-11.1) K/mcL RBC (3.82-4.97) M/mcL Hgb (11.5-15.4) g/dL Hct (35.3-44.9) % MCV (83.0-100.0) fL MCH (28.0-33.3) pg MCHC (31.6-35.5) g/dL RDW (11.5-14.5) % Plt Count (140-400) K/mcL MPV (9.4-12.4) fL Immature Gran % (0-4) % Seg Neutrophils % % Lymphocytes % % Monocytes % % Eosinophils % % Basophils % % Neutrophils # (1.6-8.9) K/mcL Lymphocytes # (0.6-4.6) K/mcL Monocytes # (0.0-1.3) K/mcL Eosinophils # (0.0-0.6) K/mcL Basophils # (0.0-0.2) K/mcL VBG pH 7.41 (7.32-7.42) pH Units VBG pCO2 48 (41-51) mmHg VBG pO2 73 H (25-50) mmHg VBG HCO3 30 H (21-27) mEq/L Sodium (136-145) mEq/L Potassium (3.5-5.1) mEq/L Chloride (98-107) mEq/L Carbon Dioxide (23-29) mEq/L BUN (6-20) mg/dL Creatinine (0.60-1.20) mg/dL Est GFR ( Amer) (> 60) Est GFR (Non-Af Amer) (> 60) BUN/Creatinine Ratio (6-26) Glucose (70-105) mg/dL Calculated Osmolality (280-300) Lactic Acid 1.4 (0.5-2.2) mmol/L Calcium (8.6-10.3) mg/dL Total Bilirubin (0.3-1.0) mg/dL AST (13-39) Units/L ALT (7-52) Units/L Alkaline Phosphatase (34-104) Units/L Troponin I (< 0.04) ng/mL Serum Total Protein (6.4-8.9) g/dL Albumin (3.5-5.7) g/dL Globulin (2.4-3.5) g/dL Albumin/Globulin Ratio (1.1-2.2) Lipase (11-82) Units/L Beta-Hydroxybutyric Acd (0.02-0.27) mmol/L Urine Color Yellow (Yellow) Urine Clarity Clear (Clear) Urine pH 5.5 (5.0-8.0) pH Units Ur Specific Adel > 1.030 H (1.010-1.025) Urine Protein Negative (Neg-Trace) mg/dL Urine Glucose (UA) >=1000 H (Normal) mg/dL Urine Ketones 15 H (Negative) mg/dL Urine Blood Negative (Negative) Urine Nitrite Negative (Negative) Urine Bilirubin Negative (Negative) Urine Urobilinogen Normal (Normal) mg/dL Ur Leukocyte Esterase Negative (Negative) Ur Culture Indicated? NO (NO) - Radiology Data Chest X-Ray 12/12/18 06:09 IMPRESSION: Slight interval worsening of hazy right basilar airspace opacity, representing either atelectasis, aspiration, or pneumonia. D/ / 12/12/2018 07:48:17 David Bejarano MD / [facility] Interpreting Provider: David Bejarano MD The patient denies any dry or productive cough. She denies any shortness of breath. Pneumonia felt to be less likely. - EKG Data EKG #1 EKG attestation: Yes I reviewed and interpreted this EKG. EKG results narrative: EKG shows a sinus tachycardia at a rate of 121 bpm. HI interval 135, QRS duration 83, QT/QTc interval 326/463. No ectopy noted. No ST elevation. No significant change in morphology when compared to an EKG dated from 12/07/18.
[2018-12-12 06:39] LABS: Basophils # 0.1 K/mcL (0.0-0.2); Basophils % 0.8 %; Eosinophils # 0.1 K/mcL (0.0-0.6); Eosinophils % 1.3 %; Hematocrit 41.3 % (35.3-44.9); Hemoglobin 13.5 g/dL (11.5-15.4); Immature Granulocytes % 0.3 % (0-4); Lymphocytes # 1.4 K/mcL (0.6-4.6); Lymphocytes % 21.5 %; Mean Corpuscular HGB Conc 32.7 g/dL (31.6-35.5); Mean Corpuscular Hemoglobin 28.4 pg (28.0-33.3); Mean Corpuscular Volume 86.8 fL (83.0-100.0); Monocytes # 0.5 K/mcL (0.0-1.3); Monocytes % 7.7 %; Neutrophils # 4.4 K/mcL (1.6-8.9); Platelet Count 188 K/mcL (140-400); Red Blood Count 4.76 M/mcL (3.82-4.97); Red Cell Distribution Width 12.2 % (11.5-14.5); Segmented Neutrophils % 68.4 %
[2018-12-12 06:58] LABS: Troponin I < 0.03 ng/mL (< 0.04)
[2018-12-12 06:58] LABS: Bilirubin,Urine Negative (Negative); Blood,Urine Negative (Negative); Clarity,Urine Clear (Clear); Color,Urine Yellow (Yellow); Glucose,Urine (UA) >=1000 mg/dL (Normal); Ketones,Urine 15 mg/dL (Negative); Leukocyte Esterase,Urine Negative (Negative); Nitrite,Urine Negative (Negative); PH,Urine 5.5 pH Units (5.0-8.0); Protein,Urine Negative (Neg-Trace); Specific Gravity,Urine > 1.030 (1.010-1.025); Urobilinogen,Urine Normal (Normal)
[2018-12-12] MEDS ORDERED: Haloperidol Lactate 5 MG/ML VIAL IVP ONE (07:25)
[2018-12-12 07:39] LABS: Alanine Aminotransferase 18 Units/L (7-52); Albumin 3.6 g/dL (3.5-5.7); Albumin/Globulin Ratio 1.2 (1.1-2.2); Alkaline Phosphatase 145 Units/L (34-104); Aspartate Amino Transferase 16 Units/L (13-39); BUN/Creatinine Ratio 20 (6-26); Bilirubin,Total 0.7 mg/dL (0.3-1.0); Blood Urea Nitrogen 22 mg/dL (6-20); Calcium 9.3 mg/dL (8.6-10.3); Carbon Dioxide 28 mEq/L (23-29); Chloride 87 mEq/L (98-107); Globulin 2.9 g/dL (2.4-3.5); Lipase 28 Units/L (11-82); Potassium 4.5 mEq/L (3.5-5.1); Sodium 127 mEq/L (136-145); Total Protein 6.5 g/dL (6.4-8.9); eGFR For Non-African Americans 55 (> 60)
[2018-12-12 07:55] LABS: Glucose 811 mg/dL (70-105); Osmolality,Calculated 307 (280-300)
[2018-12-12] MEDS ORDERED: Insulin Human Regular 10 UNIT in 0.9 % Sodium Chloride 10 ML IV ONE (07:56)
[2018-12-12] MEDS ORDERED: Hyoscyamine 0.5 MG/ML MLS IVP ONE (08:13)
[2018-12-12] MEDS ORDERED: Dextrose Gel 15 GM/37.5 ML TUBE PO PRN ×2 (10:27)
[2018-12-12] MEDS ORDERED: *HR* Dextrose 50 % in Water (Syg) 50 ML SYRINGE IVP PRN (10:27)
[2018-12-12] MEDS ORDERED: D5% in Water 1,000 ML IVC PRN (10:27)
[2018-12-12] MEDS: Insulin LISPRO 300 UNITS/3 ML VIAL SQ SCH ×2 (12:25→17:34)
[2018-12-12] MEDS ORDERED: Naloxone 0.4 MG/ML INJ IVP PRN (12:40)
[2018-12-12 14:49] LABS: BUN/Creatinine Ratio 20 (6-26); Blood Urea Nitrogen 16 mg/dL (6-20); Carbon Dioxide 25 mEq/L (23-29); Chloride 104 mEq/L (98-107); Glucose 254 mg/dL (70-105); Osmolality,Calculated 300 (280-300); Potassium 4.1 mEq/L (3.5-5.1); Sodium 140 mEq/L (136-145); eGFR For Non-African Americans > 60 (> 60)
[2018-12-12] MEDS: *HR* FentaNYL (PF) 100 MCG/2 ML VIAL IVP PRN ×2 (15:14→23:06)
[2018-12-12] MEDS: *HR* Promethazine 25 MG/ML VIAL IVP PRN ×2 (15:15→21:34)
[2018-12-12 17:29] LABS: Blood Urea Nitrogen 15 mg/dL (6-20); Calcium 9.1 mg/dL (8.6-10.3); Carbon Dioxide 28 mEq/L (23-29); Chloride 104 mEq/L (98-107); Glucose 98 mg/dL (70-105); Osmolality,Calculated 291 (280-300); Potassium 4.2 mEq/L (3.5-5.1); Sodium 140 mEq/L (136-145)
[2018-12-12 17:37] LABS: BUN/Creatinine Ratio 20 (6-26); eGFR For Non-African Americans > 60 (> 60)
--- NOTE | 2018-12-12 20:59 | Internal Med History&Physical ---
Date of Encounter: 12/12/18 Time of Encounter: 11:00 Internal Medicine - H&P: HPI Chief complaint: Abdominal pain/nausea/vomiting Admitted From: Home History of present illness: Patient is a 43-year-old female with past medical history of uncontrolled diabetes with A1c of 12.4 on 12/05/18, gastroparesis with gastric stimulator placed at [facility] who presents to the ER on 12/12/18 with recurrent nausea/vomiting/abdominal pain. Patient has had multiple admissions for the same and has been evaluated by GI with recommendations for EGD which showed nonbleeding esophageal ulcers with gastroparesis. She has been referred to [facility] for interrogation of gastric stimulator but patient has not follow-up on recommendations; she reports a "paperwork issue." Patient can presents to the ER today with the same symptoms of nausea vomiting abdominal pain. In the ER, patient was found to have a blood glucose of 811 with anion gap of 12 and on venous blood gases found to have a pH of 7.41 with a PCO2 of 40. Patient was admitted to the observation unit for pain control in addition to control of nausea and vomiting. Past Med Surg Social Fam HX - Past Medical History Medical history: coronary artery disease, diabetes, migraine Additional medical history: GI stimulator Psychiatric history: ADHD, depression - Past Surgical History Surgical History: cholecystectomy, hysterectomy, other Additional surgical history: CARPAL TUNNEL X 2 ON LEFT, NECK TUMOR,FISTULA REPAIR,APORT PLACEMENT - Social History Smoking Status: Never smoker Smokeless Tobacco Status: No Alcohol use: none Drug use: none - Family History Mother Living Status: Still Living Hx Family Cardiac Disorders: Yes Hx Family Respiratory Disorders: Yes (asthma) Hx Family Cancer: Yes Hx Family GI Disorders: No Hx Family Endocrine Disorder: Yes Hx Family Neuromuscular Disorders: No Hx Family Neurologic Disorders: No Hx Family Autoimmune Disorders: No Father Living Status: Hx Family Cardiac Disorders: Yes Hx Family Respiratory Disorders: No Hx Family Cancer: Yes Hx Family GI Disorders: No Hx Family Endocrine Disorder: No Hx Family Neuromuscular Disorders: No Hx Family Neurologic Disorders: No Hx Family HEENT Disorders: Yes (Anuerysm of head) Hx Family Autoimmune Disorders: No Internal Medicine - H&P: Meds Insulin ASPART [Novolog] 6 unit SQ TIDAC 05/25/16 [History] Esomeprazole Magnesium [Nexium] 40 mg PO BID #60 capsule. 04/04/18 [Rx] Aspirin [Lo-Dose Aspirin EC] 81 mg PO DAILY 08/27/18 [History] Insulin Degludec [Tresiba Flextouch U-200] 12 unit SQ BID 08/27/18 [History] Metoprolol XL (24 HR) Succ [Toprol Xl] 25 mg PO DAILY 08/27/18 [History] Venlafaxine XR (24 HR) [Effexor Xr] 150 mg PO DAILY 08/27/18 [History] Ticagrelor [Brilinta] 90 mg PO BID #60 tablet 08/28/18 [Rx] Rizatriptan Benzoate [[employer]] 10 mg PO DAILY PRN 10/02/18 [History] Tizanidine HCl 8 mg PO HS PRN 10/02/18 [History] traZODone [TraZODone] 100 mg PO HS 11/20/18 [History] Ammonium Lactate 1 appl TP BID 12/07/18 [History] Atorvastatin [Lipitor] 40 mg PO HS #30 tablet 12/09/18 [Rx] Promethazine [Phenergan] 25 mg PO Q6HR PRN #45 tablet 12/09/18 [Rx] Allergy/AdvReac Type Severity Reaction Status Date / Time ketorolac [From Toradol] Allergy Hives Verified 12/12/18 14:35 levofloxacin [From Levaquin] Allergy Hives Verified 12/12/18 14:35 Penicillins [PCN] Allergy Hives Verified 12/12/18 14:35 Sulfa (Sulfonamide Allergy Swelling Verified 12/12/18 14:35 Antibiotics) of Lip/Tongue/Throat sumatriptan [From Imitrex] Allergy Swelling Verified 12/12/18 14:35 of Lip/Tongue/Throat metoclopramide [From Reglan] AdvReac Nausea Verified 12/12/18 14:35 ondansetron AdvReac Nausea Verified 12/12/18 14:35 [From Zofran (as hydrochloride)] All Systems PM: A 10-system review of systems was performed and is negative for pertinent findings except as documented above in the HPI. - Constitutional Vitals: Temp Pulse Resp BP Pulse Ox 98.4 F 103 14 127/81 95 12/12/18 20:24 12/12/18 20:24 12/12/18 20:24 12/12/18 20:24 12/12/18 20:24 General appearance: Present: A&O X 3, no acute distress Exam: As above - Eye Eye exam: Present: normal appearance - ENT ENT exam: Present: mucous membranes moist - Respiratory Respiratory exam: Present: CTAB. Absent: accessory muscle use, rales, rhonchi, wheezes - Cardiovascular Cardiovascular exam: Present: RRR, +S1, +S2. Absent: diastolic murmur, gallop, rubs, systolic murmur - GI/Abdominal GI/Abdominal exam: Present: normal bowel sounds, soft, no peritoneal signs. Absent: distended, tenderness - Extremities Exam Extremities exam: Absent: pedal edema - Neurological Exam Neurological exam: Present: oriented X3 - Psychiatric Psychiatric exam: Present: flat affect - Skin Skin exam: Present: normal color Internal Med - H&P Results - Labs CBC & Chem 7: 12/13/18 07:06 12/12/18 17:04 Labs: Short CBC 12/12/18 Range/Units 06:22 WBC 6.4 (4.3-11.1) K/mcL Hgb 13.5 (11.5-15.4) g/dL Hct 41.3 (35.3-44.9) % Plt Count 188 (140-400) K/mcL Neutrophils # 4.4 (1.6-8.9) K/mcL BMP 12/12/18 12/12/18 12/12/18 06:22 14:17 17:04 Sodium 127 L 140 D 140 Potassium 4.5 4.1 4.2 Chloride 87 L 104 104 Carbon Dioxide 28 25 28 BUN 22 H 16 15 Creatinine 1.09 0.80 0.74 Glucose 811 H* 254 H 98 Calcium 9.3 9.0 9.1 Cardiac Enzymes 12/12/18 Range/Units 06:22 Troponin I < 0.03 (< 0.04) ng/mL Liver Function 12/12/18 Range/Units 06:22 Total Bilirubin 0.7 (0.3-1.0) mg/dL AST 16 (13-39) Units/L ALT 18 (7-52) Units/L Alkaline Phosphatase 145 H (34-104) Units/L Albumin 3.6 (3.5-5.7) g/dL Urine 12/12/18 Range/Units 06:49 Urine Color Yellow (Yellow) Urine Clarity Clear (Clear) Urine pH 5.5 (5.0-8.0) pH Units Ur Specific [place] > 1.030 H (1.010-1.025) Urine Protein Negative (Neg-Trace) mg/dL Urine Glucose (UA) >=1000 H (Normal) mg/dL - ABG Interpretation ABG results: 12/12/18 06:33 VBG pH 7.41 VBG pCO2 48 VBG pO2 73 H VBG HCO3 30 H - Impressions ITS Impressions Chest X-Ray 12/12/18 06:09 IMPRESSION: Slight interval worsening of hazy right basilar airspace opacity, representing either atelectasis, aspiration, or pneumonia. D/ / 12/12/2018 07:48:17 David Bejarano MD / shannan Interpreting Provider: David Bejarano MD - Assessment and plan (1) Abdominal pain Current Visit: Yes Status: Acute Assessment and plan: Patient has had multiple admissions for the same and has been evaluated by GI with recommendations for EGD which showed nonbleeding esophageal ulcers with gastroparesis. She has been referred to [facility] for interrogation of gastric stimulator but patient has not follow-up on recommendations; she reports a "paperwork issue." She was placed on same pain regimen as last visit with fentanyl as needed and Phenergan for nausea and vomiting Consideration for reconsultation to GI by the rounding team in the morning Qualifiers: Abdominal location: generalized Qualified Code(s): R10.84 - Generalized abdominal pain (2) Intractable nausea and vomiting Current Visit: Yes Status: Acute Assessment and plan: Patient placed on same regimen as last visit with Phenergan as needed Qualifiers: Vomiting type: unspecified Qualified Code(s): R11.2 - Nausea with vomiting, unspecified (3) Gastroparesis due to DM Current Visit: No Status: Acute Assessment and plan: Recommended that patient follow-up with her referral to [facility] for investigation of gastric stimulator that was placed there (4) Uncontrolled diabetes mellitus Current Visit: Yes Status: Acute Assessment and plan: Patient with a blood glucose of 811 without anion gap on admission; repeat blood glucose improved to 254 Patient with a history of uncontrolled diabetes with A1c of 12.4 on 12/05/18 Restarted on insulin regimen Qualifiers: Coma presence: unspecified whether coma present Qualified Code(s): E08.649 - Diabetes mellitus due to underlying condition with hypoglycemia without coma - Time Spent With Patient Total time spent is greater than 50% in coordination of care (as documented) at patient's floor/unit and/or counseling patient:
[2018-12-12] MEDS ORDERED: Isovue-370 500 ML BOTTLE IVP ONE (23:17)
[2018-12-12] MEDS ORDERED: *HR* LORazepam 2 MG/ML VIAL IVP ONE (23:18)
[2018-12-12] MEDS ORDERED: Prochlorperazine 10 MG/2 ML VIAL IVP PRN (23:19)
[2018-12-13] MEDS: Insulin LISPRO 300 UNITS/3 ML VIAL SQ SCH ×4 (01:41→12:01)
--- NOTE | 2018-12-13 01:54 | Event Note ---
Date of Encounter: 12/12/18 Time of Encounter: 22:51 Alerted by pts. nurse BRADLEY Cabrera that the pt. was complaining of SOB and stabbing pain in the center of her chest. Pt. admitted for nausea, vomiting, and abdominal pain. Nurse reported pt. was crying and had vomited. Went to see pt. who appeared to be in severe pain. Stat EKG ordered which showed sinus tachycardia and nonspecific T-wave abnormality. Stat troponin ordered which was <0.03. Pt. stated she had stents placed and this pain feels just like that time. Pt. is also on Brilinta but cannot remember last dose and it has not been given while here. Bilateral SCDs on LEs ordered for DVT prophylaxis in the meantime. Concern for possible PE d/t pts. severe pain and sx, so stat CTA of the chest ordered which showed no pulmonary embolus, mild bibasilar segmental atelectasis versus pneumonia, enlarging right hilar and subcarinal adenopathy. PET scan and/or short-term CT follow-up recommended for further evaluation. Nonspecific distal esophageal wall thickening. Endoscopy and/or esophagram recommended for further evaluation. Pt. given 0.5 VACCINATOR Ativan for anxiety. VS at the time of incident: HR 116, BP 129/86, 98.4F temp, SpO2 96% on room air. Pt. is NPO d/t N/V. No dx of DM, but BG was 253 when I checked on pt. at 01:50. Medium dose sliding scale insulin ordered every 6 hour. Nurse instructed to give patient 4 units instead of the 8 units for the BG of 253 d/t pts. NPO status and monitor BG Q30MIN and alert me of the results. Nurse instructed to continue monitoring the pt. closely and notify me immediately of any adverse changes.
[2018-12-13] MEDS: *HR* FentaNYL (PF) 100 MCG/2 ML VIAL IVP PRN ×3 (06:52→23:31)
[2018-12-13] MEDS: *HR* Promethazine 25 MG/ML VIAL IVP PRN ×3 (06:52→20:10)
[2018-12-13 07:13] LABS: Estimated Average Glucose 303 mg/dl; Hemoglobin A1C 12.2 %
[2018-12-13 07:24] LABS: Basophils # 0.1 K/mcL (0.0-0.2); Basophils % 1.1 %; Eosinophils # 0.2 K/mcL (0.0-0.6); Eosinophils % 3.9 %; Hematocrit 39.3 % (35.3-44.9); Hemoglobin 13.3 g/dL (11.5-15.4); Immature Granulocytes % 0.9 % (0-4); Lymphocytes # 2.4 K/mcL (0.6-4.6); Lymphocytes % 41.2 %; Mean Corpuscular HGB Conc 33.8 g/dL (31.6-35.5); Mean Corpuscular Hemoglobin 28.6 pg (28.0-33.3); Mean Corpuscular Volume 84.5 fL (83.0-100.0); Mean Platelet Volume 11.6 fL (9.4-12.4); Monocytes # 0.5 K/mcL (0.0-1.3); Monocytes % 9.5 %; Neutrophils # 2.5 K/mcL (1.6-8.9); Platelet Count 187 K/mcL (140-400); Red Blood Count 4.65 M/mcL (3.82-4.97); Red Cell Distribution Width 12.3 % (11.5-14.5); Segmented Neutrophils % 43.4 %
--- NOTE | 2018-12-13 10:17 | Internal Med Progress Note ---
Hospitalist Progress Note - Encounter Date of Encounter: 12/13/18 Time of Encounter: 10:17 - Subjective Interval History: Patient was seen and examined at bedside complaining of some abdominal cramping. We did discuss treatment plan patient verbalized understanding - Exam Vitals: Temp Pulse Resp BP Pulse Ox 98.2 F 90 18 97/65 95 12/13/18 07:41 12/13/18 07:41 12/13/18 07:41 12/13/18 07:41 12/13/18 07:41 Exam: General: Conversant, No Apparent Distress HEENT: Atraumatic, Normocephaly, Mucus Membranes Moist Neck: No JVD, Normal carotid pulses Cardiac: Reg Rate and Rhythm, Normal S1 and S2, No Murmur Lungs: Normal Breath Sounds, No Wheeze, Rales, Rhonchi Neuro: Alert and responsive, No focal deficits noted Abdomen: Soft, Non-Tender Skin: No rashes noted on visualized skin Musculoskeletal: No Chest Wall Tenderness Extremities: No Clubbing, No Cyanosis, No Edema, Normal Pulses - Assessment and Plan (1) Uncontrolled type 1 diabetes mellitus Current Visit: No Status: Chronic Assessment and Plan: Patient with a blood glucose of 811 without anion gap on admission; repeat blood glucose improved to 254 Patient with a history of uncontrolled diabetes with A1c of 12.4 on 12/05/18 Restarted on insulin regimen 12/13/2018 Originally presented with a glucose of 811 without anion gap repeat blood glucose did improve to 254 Has a history of uncontrolled diabetes with A1c of 12.4 on 12/05/18 Continue with insulin sliding scale currently nothing by mouth monitor electrolytes (2) Gastroparesis due to DM Current Visit: No Status: Acute Assessment and Plan: Recommended that patient follow-up with her referral to [facility] for investigation of gastric stimulator that was placed there 12/13/2018 Patient was recommended to follow up with referral to [facility] to evaluate gastric stimulator. Will attempt to make arrangements for transport to [facility] in the a.m. We will contact Dr. Nicholas to at [facility] We will discuss with block and case maker. Patient was recently discharged and has returned to facility due to increasing nausea and vomiting- has not been able to follow-up with the [facility] (3) Abdominal pain Current Visit: Yes Status: Acute Assessment and Plan: Patient has had multiple admissions for the same and has been evaluated by GI with recommendations for EGD which showed nonbleeding esophageal ulcers with gastroparesis. She has been referred to [facility] for interrogation of gastric stimulator but patient has not follow-up on recommendations; she reports a "paperwork issue." She was placed on same pain regimen as last visit with fentanyl as needed and Phenergan for nausea and vomiting Consideration for reconsultation to GI by the rounding team in the morning 12/13/2018 Has had multiple admissions for abdominal pain nausea vomiting has been evaluated GI underwent EGD 11/28/2018-which showed nonbleeding esophageal ulcers with gastroparesis she had been referred to [facility] for interrogation of gastric stimulator however patient has not been able to follow-up recommendation-reports "paperwork issues" we will consult social services coordinator concerning follow-up and process paper work Continue pain regime and antiemetic We will discuss case with GI in a.m. (4) Intractable nausea and vomiting Current Visit: Yes Status: Acute Assessment and Plan: Patient placed on same regimen as last visit with Phenergan as needed 12/13/2018 Continue with Phenergan and Compazine as needed - Time Spent with Patient Total time spent is greater than 50% in coordination of care (as documented) at patient's floor/unit and/or counseling patient: Internal Medicine: Result - Labs CBC & Chem 7: 12/13/18 07:06 12/12/18 17:04 Labs: Short CBC 12/13/18 Range/Units 07:06 WBC 5.7 (4.3-11.1) K/mcL Hgb 13.3 (11.5-15.4) g/dL Hct 39.3 (35.3-44.9) % Plt Count 187 (140-400) K/mcL Neutrophils # 2.5 (1.6-8.9) K/mcL BMP 12/12/18 12/12/18 14:17 17:04 Sodium 140 D 140 Potassium 4.1 4.2 Chloride 104 104 Carbon Dioxide 25 28 BUN 16 15 Creatinine 0.80 0.74 Glucose 254 H 98 Calcium 9.0 9.1 Cardiac Enzymes 12/12/18 Range/Units 23:34 Troponin I < 0.03 (< 0.04) ng/mL - Impressions Impressions Chest X-Ray 12/12/18 06:09 IMPRESSION: Slight interval worsening of hazy right basilar airspace opacity, representing either atelectasis, aspiration, or pneumonia. D/ / 12/12/2018 07:48:17 David Bejarano MD / shannan Interpreting Provider: David Bejarano MD Chest CTA 12/13/18 00:01 IMPRESSION: 1. Negative for pulmonary embolus. 2. Mild bibasilar segmental atelectasis versus pneumonia. 3. Enlarging right hilar and subcarinal adenopathy. PET scan and/or short-term CT follow-up recommended for further evaluation. 4. Nonspecific distal esophageal wall thickening. Endoscopy and/or esophagram recommended for further evaluation. D/ / Caleb Danielle MD / Caleb Danielle MD Interpreting Provider: Caleb Danielle MD Consult Discharge Plan - Plan Referrals: NONE,PCP [Primary Care Provider] - (3) Abdominal pain Qualifiers: Abdominal location: generalized Qualified Code(s): R10.84 - Generalized abdominal pain (4) Intractable nausea and vomiting Qualifiers: Vomiting type: unspecified Qualified Code(s): R11.2 - Nausea with vomiting, u nspecified
[2018-12-13] MEDS ORDERED: tiZANidine 4 MG TABLET PO PRN (15:32)
[2018-12-13 16:32] LABS: BUN/Creatinine Ratio 14 (6-26); Blood Urea Nitrogen 9 mg/dL (6-20); Calcium 8.6 mg/dL (8.6-10.3); Carbon Dioxide 24 mEq/L (23-29); Chloride 103 mEq/L (98-107); Glucose 137 mg/dL (70-105); Osmolality,Calculated 281 (280-300); Potassium 4.4 mEq/L (3.5-5.1); Sodium 135 mEq/L (136-145); eGFR For Non-African Americans > 60 (> 60)
[2018-12-13] MEDS: *HR* Ticagrelor 90 MG TABLET PO SCH (20:09)
[2018-12-13] MEDS: traZODone 50 MG TABLET PO SCH (20:09)
[2018-12-13] MEDS: Insulin DETEMIR 100 UNIT/ML X5UNITS SQ SCH (20:10)
[2018-12-13] MEDS ORDERED: Insulin LISPRO 300 UNITS/3 ML VIAL SQ SCH (21:00)
[2018-12-13] MEDS ORDERED: *HR* LORazepam 2 MG/ML VIAL IVP ONE (21:04)
[2018-12-13] MEDS ORDERED: Acetaminophen IV 1,000 MG/100 ML INFUS..BTL IVPB ONE (21:05)
[2018-12-13] MEDS: 0.9 % Sodium Chloride 1,000 ML IVC SCH (21:17)
--- NOTE | 2018-12-13 21:20 | Event Note ---
Date of Encounter: 12/13/18 Time of Encounter: 21:00 Alerted by pts. nurse Deborah RN that the pt. was agitated and in severe pain again this evening. BG was >500. 5 units of Levemir given at 7:30. Nurse instructed to give HS SS dosing now and monitor BG Q30MIN and alert me of results. Went to see pt. who was crying. Pt. reports nausea and abdominal pain. Pt. admitted for N/V d/t gastroparesis. IVP Compazine ordered. IVPB Ofirmev ordered for pain d/t pts. current N/V. Pt. had episodes of hypotension, so Fentanyl held. 1 mg IVP Ativan ordered for pts. anxiety. Pts. sodium 135 at 16:00 so 0.9 NS @ 75 mls/hr ordered for now. Will recheck labs at 04:00. Nurse instructed to monitor pt. closely and notify me immediately of any adverse changes.
[2018-12-13] MEDS: Ammonium Lactate 30 APPL/225 GM BOTTLE TP SCH (21:34)
[2018-12-13] MEDS ORDERED: Prochlorperazine 10 MG/2 ML VIAL IVP PRN (21:46)
[2018-12-14] MEDS ORDERED: Insulin DETEMIR 100 UNIT/ML X5UNITS SQ ONE ×2 (00:53→03:51)
[2018-12-14 04:04] LABS: Basophils # 0.1 K/mcL (0.0-0.2); Basophils % 1.2 %; Eosinophils # 0.1 K/mcL (0.0-0.6); Eosinophils % 2.5 %; Hematocrit 37.2 % (35.3-44.9); Hemoglobin 12.7 g/dL (11.5-15.4); Immature Granulocytes % 4.8 % (0-4); Lymphocytes # 1.5 K/mcL (0.6-4.6); Lymphocytes % 31.1 %; Mean Corpuscular HGB Conc 34.1 g/dL (31.6-35.5); Mean Corpuscular Hemoglobin 28.9 pg (28.0-33.3); Mean Corpuscular Volume 84.5 fL (83.0-100.0); Mean Platelet Volume 11.6 fL (9.4-12.4); Monocytes # 0.5 K/mcL (0.0-1.3); Monocytes % 9.7 %; Neutrophils # 2.5 K/mcL (1.6-8.9); Nucleated Red Blood Cells 1.4 /100 WBC (0); Platelet Count 174 K/mcL (140-400); Segmented Neutrophils % 50.7 %
[2018-12-14 04:29] LABS: BUN/Creatinine Ratio 11 (6-26); Blood Urea Nitrogen 8 mg/dL (6-20); Calcium 8.7 mg/dL (8.6-10.3); Carbon Dioxide 24 mEq/L (23-29); Chloride 103 mEq/L (98-107); Glucose 369 mg/dL (70-105); Osmolality,Calculated 295 (280-300); Potassium 4.9 mEq/L (3.5-5.1); Sodium 136 mEq/L (136-145); eGFR For Non-African Americans > 60 (> 60)
[2018-12-14] MEDS: *HR* Promethazine 25 MG/ML VIAL IVP PRN ×4 (06:14→20:30)
[2018-12-14] MEDS: *HR* FentaNYL (PF) 100 MCG/2 ML VIAL IVP PRN (06:50)
[2018-12-14] MEDS ORDERED: *HR* LORazepam 2 MG/ML VIAL IVP ONE (06:50)
[2018-12-14] MEDS ORDERED: Venlafaxine XR (24 HR) 150 MG CAP.ER.24H PO SCH (09:00)
[2018-12-14] MEDS ORDERED: Metoprolol XL (24 HR) Succ 25 MG TAB.ER.24H PO SCH (09:00)
[2018-12-14] MEDS ORDERED: Insulin DETEMIR 100 UNIT/ML X5UNITS SQ SCH (09:00)
[2018-12-14] MEDS ORDERED: Aspirin Enteric Coated 81 MG Tablet PO SCH (09:00)
[2018-12-14] MEDS: Ammonium Lactate 30 APPL/225 GM BOTTLE TP SCH ×2 (09:14→20:32)
[2018-12-14] MEDS: *HR* Ticagrelor 90 MG TABLET PO SCH ×2 (09:14→20:31)
[2018-12-14] MEDS: Insulin LISPRO 300 UNITS/3 ML VIAL SQ SCH ×2 (09:15→11:41)
[2018-12-14] MEDS: OXYCODONE Oral CONC 10 MG/0.5 ML ORAL.SYG SL PRN ×3 (12:05→20:30)
[2018-12-14] MEDS: 0.9 % Sodium Chloride 1,000 ML IVC SCH (12:12)
[2018-12-14] MEDS ORDERED: Insulin LISPRO 300 UNITS/3 ML VIAL SQ SCH ×2 (13:20)
--- NOTE | 2018-12-14 14:36 | Gastroenterology Consult Note ---
<Michael Verma S - Last Filed: 12/14/18 15:06> Date of Encounter: 12/14/18 Time of Encounter: 11:00 - Assessment and plan (1) Abdominal pain Status: Resolved Assessment and plan: Patient with pain in LLQ intermittently for the past month CT abdomen/pelvis was negative for mass, obstruction, diverticulitis, renal calculi, but was concerning for stable distal esophageal thickening Patient on oxycodone for pain If pain persists, may get colonoscopy Qualifiers: Abdominal location: epigastric Qualified Code(s): R10.13 - Epigastric pain (2) Diabetic gastroparesis Status: Chronic Assessment and plan: Patient's glucose is 277, down from >600 on admission Patient reports home glucose range from 80-600 She uses Novalog and Tresiba 12 units BID at home Patient started on humalog medium dose insulin sliding scale and insulin detemir Patient given reglan to stimluate motility On phenergan for nausea, and omeprazole for GI prophylaxis Patient has gastric stimulator, which is believed to be defective He is going to be transferred to [facility] for check on gastric stimulator - Time Spent With Patient Total time spent is greater than 50% in coordination of care (as documented) at patient's floor/unit and/or counseling patient: GI History of Present Illness - Data of Consult Consult date: 12/14/18 Requesting Physician: Joshua Jean - Consult Narrative Reason for consult: Gastroparesis History of present illness: Ms. Fish is a 43 year old female with PMHx of DM type 1, s/p stent x3 for CAD presented to [place] on 12/12 with complaints of nausea, vomiting, and abdominal pain. GI was consulted for gastroparesis. Patient's labs were significant for glucose >600, elevated beta-hydroxybutyrate. Urine was positive for glucose and ketones. Patient had ab/pelvis CT was negative for ileus, masses, obstruction, diverticulitis, urinary calculi, but was concerning for stable circumferential distal esophageal thickening, which was also present in August 2017. Patient seen and examined today. She states her pain, nausea, and vomiting started around 2017. She states the pain is stabbing, in her LLQ, does not radiate, and is worse with activity. Her emesis is non-bloody and not associated with eating. Her last episode was last night. She complains of intermittent diarrhea during this time, and states she periodically notices blood when she wipes. Patient states she has been hospitalized multiple times for similar complaints in the past, and she was recently discharged on 12/09 with instructions to follow-up with [facility] for suspected defective gastric stimulator. Patient states her blood glucose levels routinely range from 80-600 at home. She maintains her diabetes with Novalog and Tresiba 22 units twice a day. Patient doesn't recall ever having a colonoscopy in the past. She had an EGD a couple weeks ago which showed non-bleeding esophageal ulcers and abnormal esophageal motility. Patient denies history of smoking, alcohol, and drug use. Past Med Surg Social Fam HX - Past Medical History Medical history: coronary artery disease, diabetes, migraine Additional medical history: GI stimulator Psychiatric history: ADHD, depression - Past Surgical History Surgical History: cholecystectomy, hysterectomy, other Additional surgical history: CARPAL TUNNEL X 2 ON LEFT, NECK TUMOR,FISTULA RE PAIR,APORT PLACEMENT - Social History Smoking Status: Never smoker Smokeless Tobacco Status: No Alcohol use: none Drug use: none - Family History Mother Living Status: Still Living Hx Family Cardiac Disorders: Yes Hx Family Respiratory Disorders: Yes (asthma) Hx Family Cancer: Yes Hx Family GI Disorders: No Hx Family Endocrine Disorder: Yes Hx Family Neuromuscular Disorders: No Hx Family Neurologic Disorders: No Hx Family Autoimmune Disorders: No Father Living Status: Hx Family Cardiac Disorders: Yes Hx Family Respiratory Disorders: No Hx Family Cancer: Yes Hx Family GI Disorders: No Hx Family Endocrine Disorder: No Hx Family Neuromuscular Disorders: No Hx Family Neurologic Disorders: No Hx Family HEENT Disorders: Yes (Anuerysm of head) Hx Family Autoimmune Disorders: No - Constitutional Vitals: Temp Pulse Resp BP Pulse Ox 98.1 F 101 16 120/79 93 12/14/18 11:20 12/14/18 11:20 12/14/18 11:20 12/14/18 11:20 12/14/18 11:20 General appearance: Present: mild distress, A&O X 3 - Respiratory Respiratory exam: Present: CTAB - Cardiovascular Cardiovascular exam: Present: RRR - GI/Abdominal GI/Abdominal exam: Present: normal bowel sounds, soft, tenderness (exquisitely tender in left lower quadrant and mildly tender in epigastrium and right upper quadrant), no peritoneal signs. Absent: distended - Extremities Exam Additional comments: Multiple calluses on feet bilaterally, no open wounds/ulcerations - Neurological Exam Additional comments: Diminished sensation in feet bilaterally - Psychiatric Psychiatric exam: Present: normal affect, normal mood Results - Labs CBC & Chem 7: 12/14/18 03:55 12/14/18 03:55 Labs: Last Result Calcium 8.7 mg/dL (8.6-10.3) 12/14/18 03:55 Troponin I < 0.03 ng/mL (< 0.04) 12/12/18 23:34 Entire Visit Hgb 12.7 g/dL (11.5-15.4) 12/14/18 03:55 Hct 37.2 % (35.3-44.9) 12/14/18 03:55 Total Bilirubin 0.7 mg/dL (0.3-1.0) 12/12/18 06:22 AST 16 Units/L (13-39) 12/12/18 06:22 ALT 18 Units/L (7-52) 12/12/18 06:22 Lipase 28 Units/L (11-82) 12/12/18 06:22 - Impressions Impressions Abdomen/Pelvis CT 12/13/18 23:26 IMPRESSION: No ileus, obstruction, or other acute bowel process identified. The appendix appears normal. No acute diverticulitis. No urinary tract calculi or obstruction. Cholecystectomy. Stable appearing mild circumferential thickening of the distal thoracic esophagus, also noted in March of 2018 as well as August of 2017. D/ / Adilson Samson MD / Adilson Samson MD Interpreting Provider: Adilson Samson MD Consult Discharge Plan - Plan Referrals: Augie Esquivel [Partnered Physician] - 12/21/18 1:45 pm <Srinivas Sheppard - Last Filed: 12/16/18 14:26> Date of Encounter: 12/14/18 Time of Encounter: 14:00 - Time Spent With Patient Total time spent is greater than 50% in coordination of care (as documented) at patient's floor/unit and/or counseling patient: GI History of Present Illness - Data of Consult Requesting Physician: Joshua Jean - Consult Narrative History of present illness: Ms. Fish is a 43 year old female - Constitutional Vitals: Temp Pulse Resp BP Pulse Ox 98.2 F 89 16 100/68 95 12/14/18 21:28 12/14/18 21:28 12/14/18 21:28 12/14/18 21:28 12/14/18 21:28 Results - Labs CBC & Chem 7: 12/14/18 03:55 12/14/18 03:55 Labs: Last Result Calcium 8.7 mg/dL (8.6-10.3) 12/14/18 03:55 Troponin I < 0.03 ng/mL (< 0.04) 12/12/18 23:34 Entire Visit Hgb 12.7 g/dL (11.5-15.4) 12/14/18 03:55 Hct 37.2 % (35.3-44.9) 12/14/18 03:55 Total Bilirubin 0.7 mg/dL (0.3-1.0) 12/12/18 06:22 AST 16 Units/L (13-39) 12/12/18 06:22 ALT 18 Units/L (7-52) 12/12/18 06:22 Lipase 28 Units/L (11-82) 12/12/18 06:22 - Attending Attestation I examined this patient and my medical decision-making was reviewed with the Resident Physician. I agree with the documented findings, disposition and treatment plan as described except to the extent set forth below. Patient seen along with Dr. verma. Patient with complaint of left lower quadrant pain . examination does has local focal tenderness. CT scan reviewed no evidence of colitis or any obvious pathology in the left colon. Assessment: Patient with a history of gastroparesis admitted with DKA now with left-sided abdominal pain. per patient she has this pain for quite a while. Rec: If pain persists then we can consider colonoscopy. Meanwhile symptomatic treatment
--- NOTE | 2018-12-14 16:51 | Discharge Summary ---
- NOTES TO OUTPATIENT PROVIDER Notes to Outpatient Provider: Patient will be transferred to [facility] for evaluation of replacement of gastric stimulator Orders not resulted at time of discharge: Pending orders 12/12/18 22:54 EKG [ECG 12 lead ECG] [ECG] Stat Date of Encounter: 12/14/18 Time of Encounter: 16:38 - Discharge Diagnosis (1) Gastroparesis due to DM Priority: Primary Status: Acute (2) Abdominal pain Priority: Primary Status: Acute Qualifiers: Abdominal location: generalized Qualified Code(s): R10.84 - Generalized abdominal pain (3) Intractable nausea and vomiting Priority: Primary Status: Acute Qualifiers: Vomiting type: unspecified Qualified Code(s): R11.2 - Nausea with vomiting, unspecified (4) Uncontrolled diabetes mellitus Priority: Secondary Status: Chronic Qualifiers: Diabetes mellitus type: type 1 Glycemic state: with hyperglycemia Qualified Code(s): E10.65 - Type 1 diabetes mellitus with hyperglycemia Hospital course: Ms. Fish is a 43 year old female past medical history of diabetes type 1 diabetic gastroparesis with implantable gastric stimulator CAD with stent placement most recently September 2018. Patient has had multiple recent admissions for abdominal pain and intractable nausea and vomiting. She has been admitted and discharged from this facility approximately 5 times in the past 2 months. She has a history of poorly controlled diabetes and long-standing gastroparesis she did have a implantable gastric stimulator placed at [facility] approximately 10 years ago, states that her last follow-up was approximately 2 years ago. Over the past year she has been experiencing episodic cyclic nausea and vomiting and inability to hold down foods or fluid. She also has been experiencing severe abdominal pain. She did have a CT of abdomen this admission which did not reveal any ileus no urinary tract calculi cholecystectomy stable appearing mild circumferential thickening of the distal thoracic esophagus which was noted in March 2018 as well as August 2017. On previous admission 12/09/18 patient was seen by gastroenterology and underwent EGD with findings of nonbleeding esophageal ulcers, gastroparesis and abnormal esophageal motility recommended daily PPI and gastroparesis diet. Patient has been discharged home and is only home a few days when she returns with elevated blood glucose and intractable nausea and vomiting. She presented this admission with elevated glucose of 800 and I am gap of 12 venous gas pH of 7.41 and PCO2 of 40. 11 A1c was 12.2 on 12/05/18 She was admitted and given IV fluids anti- emetics and pain medication. Due to frequency of readmission and no improvement in patient's condition I did discuss with the patient possible transfer to [facility]. I also spoke with Dr. Nicholas-office spoke with nurse Romy who did speak with the physician recommending transfer for evaluation for surgical replacement of gastric stimulator. I updated our GI services will also is in agreement. Spoke with the transfer center at [facility] and Dr. Cannon who has accepted the patient is currently waiting for bed. Requesting copies of records complete charts imaging placed on disc. We will be notified when a bed is available. I did update the patient who verbalized understanding. Currently patient is tolerating oral liquid intake -blood glucose has improved currently on basal and sliding scale insulin. Pain is controlled no nausea or vomiting at this time she is hemodynamically stable and is ready for transfer - Time Spent with Patient Total time spent providing and/or coordinating discharge services: - Discharge Medications Home Medications: Insulin ASPART [Novolog] 6 unit SQ TIDAC 05/25/16 [History] Esomeprazole Magnesium [Nexium] 40 mg PO BID #60 capsule. 04/04/18 [Rx] Aspirin [Lo-Dose Aspirin EC] 81 mg PO DAILY 08/27/18 [History] Insulin Degludec [Tresiba Flextouch U-200] 12 unit SQ BID 08/27/18 [History] Metoprolol XL (24 HR) Succ [Toprol Xl] 25 mg PO DAILY 08/27/18 [History] Venlafaxine XR (24 HR) [Effexor Xr] 150 mg PO DAILY 08/27/18 [History] Ticagrelor [Brilinta] 90 mg PO BID #60 tablet 08/28/18 [Rx] Rizatriptan Benzoate [Maxalt Historiographer] 10 mg PO DAILY PRN 10/02/18 [History] Tizanidine HCl 8 mg PO HS PRN 10/02/18 [History] traZODone [TraZODone] 100 mg PO HS 11/20/18 [History] Ammonium Lactate 1 appl TP BID 12/07/18 [History] Atorvastatin [Lipitor] 40 mg PO HS #30 tablet 12/09/18 [Rx] Promethazine [Phenergan] 25 mg PO Q6HR PRN #45 tablet 12/09/18 [Rx] Allergies/Adverse Reactions: Allergy/AdvReac Type Severity Reaction Status Date / Time ketorolac [From Toradol] Allergy Hives Verified 12/12/18 14:35 levofloxacin [From Levaquin] Allergy Hives Verified 12/12/18 14:35 Penicillins [PCN] Allergy Hives Verified 12/12/18 14:35 Sulfa (Sulfonamide Allergy Swelling Verified 12/12/18 14:35 Antibiotics) of Lip/Tongue/Throat sumatriptan [From Imitrex] Allergy Swelling Verified 12/12/18 14:35 of Lip/Tongue/Throat metoclopramide [From Reglan] AdvReac Nausea Verified 12/12/18 14:35 ondansetron AdvReac Nausea Verified 12/12/18 14:35 [From Zofran (as hydrochloride)] Date of admission: 12/13/18 15:14 Primary care physician: PCP NONE Consults: 12/14/18 10:00 Consult to Gastroenterology [CONS] Routine Consulting Provider: Gastroenterology Dianne Reason for Consult: Nausea/vomiting Time Notified: 10:01 Call Completed: Yes Discharging clinician: Citlaly Casarez Anticipated date of discharge: 12/14/18 - Constitutional Vitals: Temp Pulse Resp BP Pulse Ox 98.0 F 105 16 131/86 97 12/14/18 15:37 12/14/18 15:37 12/14/18 15:37 12/14/18 15:37 12/14/18 15:37 General appearance: Present: A&O X 3, no acute distress Exam: General: Conversant, No Apparent Distress HEENT: Atraumatic, Normocephaly, Mucus Membranes Moist Neck: No JVD, Normal carotid pulses Cardiac: Reg Rate and Rhythm, Normal S1 and S2, No Murmur Lungs: Normal Breath Sounds, No Wheeze, Rales, Rhonchi Neuro: Alert and responsive, No focal deficits noted Abdomen: Soft, mild tenderness to palpation throughout quadrants Skin: No rashes noted on visualized skin Musculoskeletal: No Chest Wall Tenderness Extremities: No Clubbing, No Cyanosis, No Edema, Normal Pulses - Patient Status Disposition: Transfer Critical Access Hosp Condition: Fair Functional capacity at discharge: independent ambulation Overall status at discharge: patient is not back to baseline - Discharge Instructions Follow Up With: Augie Esquivel [Partnered Physician] - 12/21/18 1:45 pm Forms: ED Satisfaction Letter, Work/School Release - Diet and Activity Activity: increase activity as tolerated
--- NOTE | 2018-12-14 17:01 | Electrocardiograph Report ---
[address] [place], [place] [address] Test Date: 2018-12-12 Pat Name: Moreno Fish Department: [id number] Room: 3B33 Gender: F Erp Developer: : 1975 Requested By: Guille Shepherd Order Number: [id number] Reading MD: Jessie Winchester Measurements Intervals [place] Rate: 121 P: 67 MT: 135 QRS: 114 QRSD: 83 T: 13 QT: 326 QTc: 463 Interpretive Statements Sinus tachycardia Consider right atrial enlargement Right axis deviation Electronically Signed On 12-14-2018 16:59:23 EST by Jessie Winchester
--- NOTE | 2018-12-14 17:48 | Electrocardiograph Report ---
[address] [address] Test Date: 2018-12-12 Pat Name: Moreno Fish Department: [id number] Room: 3B33 Gender: F Dental Service Technician: SANTANA : 1975 Requested By: [id number] Order Number: [id number] Reading MD: Jessie Winchester Measurements Intervals [place] Rate: 115 P: 40 AL: 128 QRS: 61 QRSD: 82 T: -10 QT: 329 QTc: 397 Interpretive Statements SINUS TACHYCARDIA NONSPECIFIC T-WAVE ABNORMALITY Electronically Signed On 12-14-2018 17:47:22 EST by Jessie Winchester
[2018-12-14] MEDS: Insulin DETEMIR 100 UNIT/ML X5UNITS SQ SCH (20:31)
[2018-12-14] MEDS: traZODone 50 MG TABLET PO SCH (20:31)
[2018-12-14 21:28] VITALS: BP 100/68
[2018-12-15] MEDS ORDERED: *HR* Enoxaparin 40 MG/0.4 ML SYRINGE SQ SCH (07:00)
== END 2018-12-14 22:22 | disposition critical access hospital (66) | DRG 74 ==
LOC: EMEROOARM 05:57 → 3BNU 05:57
PROVIDERS: ADMIT Hospitalist; ATTEND Hospitalist

== ENCOUNTER 2020-12-04 18:59 | Observation (INO) ==
[2020-12-04] MEDS ORDERED: 0.9 % Sodium Chloride 1,000 ML IVC ONE (20:18)
[2020-12-04] MEDS ORDERED: Isovue-370 500 ML BOTTLE IVP ONE (20:32)
[2020-12-04] MEDS ORDERED: *HR* Promethazine 25 MG/ML VIAL IM ONE (20:32)
[2020-12-04] MEDS ORDERED: Morphine Sulfate 2 MG/ML SYRINGE IVP ONE (20:32)
[2020-12-04] MEDS ORDERED: *HR* Dextrose 50 % in Water (Vial) 50 ML VIAL IVP ONE (20:45)
[2020-12-04] MEDS ORDERED: *HR* Dextrose 50 % in Water (Vial) 50 ML VIAL ONE (20:47)
[2020-12-04 21:15] LABS: VBG HCO3 30 mEq/L (21-27); VBG PCO2 50 mmHg (41-51); VBG PH 7.39 pH Units (7.32-7.42); VBG PO2 94 mmHg (25-50)
[2020-12-04 21:18] LABS: Basophils # 0.1 K/mcL (0.0-0.2); Basophils % 1.2 %; Eosinophils # 0.2 K/mcL (0.0-0.6); Eosinophils % 2.7 %; Hematocrit 38.9 % (35.3-44.9); Hemoglobin 12.4 g/dL (11.5-15.4); Immature Granulocytes % 0.4 % (0-4); Lymphocytes # 3.3 K/mcL (0.6-4.6); Lymphocytes % 44.5 %; Mean Corpuscular HGB Conc 31.9 g/dL (31.6-35.5); Mean Corpuscular Hemoglobin 27.9 pg (28.0-33.3); Mean Corpuscular Volume 87.4 fL (83.0-100.0); Mean Platelet Volume 10.5 fL (9.4-12.4); Monocytes # 0.6 K/mcL (0.0-1.3); Monocytes % 8.7 %; Neutrophils # 3.1 K/mcL (1.6-8.9); Platelet Count 244 K/mcL (140-400); Red Blood Count 4.45 M/mcL (3.82-4.97); Red Cell Distribution Width 12.3 % (11.5-14.5); Segmented Neutrophils % 42.5 %; White Blood Count 7.4 K/mcL (4.3-11.1)
[2020-12-04 21:39] LABS: Alanine Aminotransferase 48 Units/L (7-52); Albumin/Globulin Ratio 1.3 (1.1-2.2); Alkaline Phosphatase 164 Units/L (34-104); Aspartate Amino Transferase 40 Units/L (13-39); BUN/Creatinine Ratio 20 (6-26); Bilirubin,Total 0.3 mg/dL (0.3-1.0); Blood Urea Nitrogen 17 mg/dL (6-20); Calcium 9.4 mg/dL (8.6-10.3); Carbon Dioxide 28 mEq/L (23-29); Chloride 103 mEq/L (98-107); Glucose 53 mg/dL (70-105); Osmolality,Calculated 287 (280-300); Potassium 3.8 mEq/L (3.5-5.1); Sodium 139 mEq/L (136-145); eGFR For African Americans > 60 (> 60); eGFR For Non-African Americans > 60 (> 60)
[2020-12-04] MEDS ORDERED: *HR* HYDROmorphone (PF) 1 MG/ML SYRINGE IVP ONE (22:07)
[2020-12-04 22:11] LABS: Troponin I < 0.03 ng/mL (< 0.04)
[2020-12-04 22:26] LABS: Lipase 25 Units/L (11-82)
[2020-12-04 22:51] LABS: Bilirubin,Urine Negative (Negative); Blood,Urine Negative (Negative); Clarity,Urine Clear (Clear); Color,Urine Light-Yellow (Yellow); Glucose,Urine (UA) 300 mg/dL (Normal); Ketones,Urine Negative (Negative); Leukocyte Esterase,Urine Trace (Negative); Mucus,Urine Few per lpf (None-Few); Nitrite,Urine Negative (Negative); PH,Urine 5.5 pH Units (5.0-8.0); Protein,Urine Negative (Neg-Trace); RBC,Urine 0-3 per hpf (0-3); Specific Gravity,Urine > 1.030 (1.010-1.025); Squamous Epithelial Cell,Urine Few per hpf (None-Few); Urobilinogen,Urine Normal (Normal); WBC,Urine 0-3 per hpf (0-3)
[2020-12-04] MEDS ORDERED: *HR* Dextrose 50 % in Water (Vial) 50 ML VIAL IVP PRN (23:32)
[2020-12-04] MEDS ORDERED: D5% in Water 1,000 ML IVC PRN (23:32)
[2020-12-04] MEDS ORDERED: Dextrose Gel 15 GM/37.5 ML TUBE PO PRN ×2 (23:32)
[2020-12-04] MEDS ORDERED: Ondansetron 4 MG/2 ML VIAL IVP PRN (23:32)
[2020-12-04] MEDS ORDERED: Naloxone 0.4 MG/ML INJ IVP PRN (23:32)
[2020-12-04] MEDS ORDERED: traZODone 50 MG TABLET PO SCH (23:45)
[2020-12-05] MEDS: polyethylene glycoL 3350 17 GM POWD.PACK PO SCH (03:44)
[2020-12-05 04:01] LABS: Hematocrit 36.3 % (35.3-44.9); Hemoglobin 11.6 g/dL (11.5-15.4); Mean Corpuscular Hemoglobin 27.9 pg (28.0-33.3); Mean Corpuscular Volume 87.3 fL (83.0-100.0); Mean Platelet Volume 10.7 fL (9.4-12.4); Platelet Count 199 K/mcL (140-400); Red Blood Count 4.16 M/mcL (3.82-4.97); Red Cell Distribution Width 12.3 % (11.5-14.5); White Blood Count 7.1 K/mcL (4.3-11.1)
[2020-12-05 04:23] LABS: BUN/Creatinine Ratio 17 (6-26); Blood Urea Nitrogen 15 mg/dL (6-20); Calcium 8.8 mg/dL (8.6-10.3); Carbon Dioxide 27 mEq/L (23-29); Chloride 102 mEq/L (98-107); Glucose 210 mg/dL (70-105); Osmolality,Calculated 291 (280-300); Potassium 4.5 mEq/L (3.5-5.1); Sodium 137 mEq/L (136-145); eGFR For African Americans > 60 (> 60); eGFR For Non-African Americans > 60 (> 60)
[2020-12-05] MEDS: Insulin LISPRO 300 UNITS/3 ML VIAL SUBQ SCH ×3 (08:19→17:18)
[2020-12-05] MEDS: Aspirin Enteric Coated 81 MG Tablet PO SCH (08:19)
[2020-12-05] MEDS: *HR* Ticagrelor 90 MG TABLET PO SCH ×2 (08:19→20:33)
[2020-12-05] MEDS ORDERED: Venlafaxine XR (24 HR) 150 MG CAP.ER.24H PO SCH (09:30)
[2020-12-05] MEDS ORDERED: Bisacodyl 10 MG RECTAL SUPPOSITORY RC PRN (15:00)
[2020-12-05] MEDS ORDERED: Sennosides 8.6 MG TABLET PO SCH (21:00)
[2020-12-05] MEDS ORDERED: traZODone 50 MG TABLET PO SCH (21:00)
[2020-12-06 05:20] LABS: Basophils # 0.1 K/mcL (0.0-0.2); Basophils % 1.1 %; Eosinophils # 0.3 K/mcL (0.0-0.6); Eosinophils % 5.6 %; Hematocrit 34.6 % (35.3-44.9); Hemoglobin 11.1 g/dL (11.5-15.4); Immature Granulocytes % 0.4 % (0-4); Lymphocytes # 2.1 K/mcL (0.6-4.6); Mean Corpuscular HGB Conc 32.1 g/dL (31.6-35.5); Mean Corpuscular Hemoglobin 28.2 pg (28.0-33.3); Mean Corpuscular Volume 87.8 fL (83.0-100.0); Mean Platelet Volume 10.4 fL (9.4-12.4); Monocytes # 0.4 K/mcL (0.0-1.3); Monocytes % 8.8 %; Neutrophils # 1.8 K/mcL (1.6-8.9); Platelet Count 186 K/mcL (140-400); Red Blood Count 3.94 M/mcL (3.82-4.97); Red Cell Distribution Width 12.2 % (11.5-14.5); Segmented Neutrophils % 39.1 %; White Blood Count 4.6 K/mcL (4.3-11.1)
[2020-12-06 05:40] LABS: BUN/Creatinine Ratio 17 (6-26); Blood Urea Nitrogen 14 mg/dL (6-20); Calcium 8.7 mg/dL (8.6-10.3); Carbon Dioxide 32 mEq/L (23-29); Chloride 103 mEq/L (98-107); Glucose 246 mg/dL (70-105); Osmolality,Calculated 295 (280-300); Potassium 4.1 mEq/L (3.5-5.1); Sodium 138 mEq/L (136-145); eGFR For African Americans > 60 (> 60); eGFR For Non-African Americans > 60 (> 60)
[2020-12-06] MEDS: Insulin LISPRO 300 UNITS/3 ML VIAL SUBQ SCH ×2 (08:01→13:03)
[2020-12-06] MEDS: polyethylene glycoL 3350 17 GM POWD.PACK PO SCH (08:40)
[2020-12-06] MEDS: Aspirin Enteric Coated 81 MG Tablet PO SCH (08:40)
[2020-12-06] MEDS: *HR* Ticagrelor 90 MG TABLET PO SCH (08:40)
[2020-12-06] MEDS ORDERED: Venlafaxine XR (24 HR) 75 MG CAP.ER.24H PO SCH (09:00)
[2020-12-06 12:28] VITALS: BP 105/69
== END 2020-12-06 14:50 | disposition home or self-care (01) ==
LOC: EMEROOARM 18:59 → 3BNU 18:59 → SUATTDRO 23:05 → 3BNU 12-05 00:06
PROVIDERS: ADMIT Family Medicine; ATTEND Family Medicine

== ENCOUNTER 2021-03-11 22:29 | Observation (INO) ==
[2021-03-11] MEDS ORDERED: 0.9 % Sodium Chloride 1,000 ML IVC ONE ×2 (22:47→23:41)
[2021-03-11 23:00] LABS: Bilirubin,Urine Negative (Negative); Blood,Urine Negative (Negative); Clarity,Urine Clear (Clear); Color,Urine Colorless (Yellow); Glucose,Urine (UA) >=1000 mg/dL (Normal); Ketones,Urine 40 mg/dL (Negative); Leukocyte Esterase,Urine Negative (Negative); Nitrite,Urine Negative (Negative); Protein,Urine Negative (Neg-Trace); Specific Gravity,Urine 1.025 (1.010-1.025); Squamous Epithelial Cell,Urine Few per hpf (None-Few); Urobilinogen,Urine Normal (Normal); WBC,Urine 0-3 per hpf (0-3)
[2021-03-11 23:10] LABS: Basophils # 0.1 K/mcL (0.0-0.2); Basophils % 0.7 %; Eosinophils % 0.4 %; Hematocrit 34.7 % (35.3-44.9); Hemoglobin 10.3 g/dL (11.5-15.4); Immature Granulocytes % 0.3 % (0-4); Lymphocytes # 0.9 K/mcL (0.6-4.6); Lymphocytes % 12.1 %; Mean Corpuscular HGB Conc 29.7 g/dL (31.6-35.5); Mean Corpuscular Hemoglobin 27.8 pg (28.0-33.3); Mean Corpuscular Volume 93.8 fL (83.0-100.0); Mean Platelet Volume 11.3 fL (9.4-12.4); Monocytes # 0.3 K/mcL (0.0-1.3); Monocytes % 4.3 %; Platelet Count 162 K/mcL (140-400); Red Cell Distribution Width 11.8 % (11.5-14.5); Segmented Neutrophils % 82.2 %; White Blood Count 7.3 K/mcL (4.3-11.1)
[2021-03-11] MEDS ORDERED: Haloperidol Lactate 5 MG/ML VIAL IVP ONE (23:11)
[2021-03-11 23:13] LABS: VBG HCO3 20 mEq/L (21-27); VBG PCO2 41 mmHg (41-51); VBG PH 7.29 pH Units (7.32-7.42); VBG PO2 90 mmHg (25-50)
[2021-03-11 23:49] LABS: Alanine Aminotransferase 49 Units/L (7-52); Albumin 3.9 g/dL (3.5-5.7); Albumin/Globulin Ratio 1.4 (1.1-2.2); Alkaline Phosphatase 173 Units/L (34-104); BUN/Creatinine Ratio 24 (6-26); Bilirubin,Direct 0.2 mg/dL (0.0-0.2); Bilirubin,Total 1.2 mg/dL (0.3-1.0); Blood Urea Nitrogen 26 mg/dL (6-20); Calcium 8.9 mg/dL (8.6-10.3); Carbon Dioxide 17 mEq/L (23-29); Chloride 86 mEq/L (98-107); Globulin 2.8 g/dL (2.4-3.5); Glucose 985 mg/dL (70-105); Lipase 24 Units/L (11-82); Osmolality,Calculated 306 (280-300); Potassium 5.9 mEq/L (3.5-5.1); Sodium 121 mEq/L (136-145); Total Protein 6.7 g/dL (6.4-8.9); eGFR For African Americans > 60 (> 60); eGFR For Non-African Americans 55 (> 60)
[2021-03-12] MEDS ORDERED: Morphine Sulfate 2 MG/ML SYRINGE IVP ONE (00:31)
[2021-03-12] MEDS ORDERED: *HR* Promethazine 25 MG/ML VIAL IM ONE (00:32)
[2021-03-12] MEDS ORDERED: Isovue-370 500 ML BOTTLE IVP ONE (00:54)
[2021-03-12] MEDS ORDERED: Insulin Regular, Human 100 UNIT/ML IV ONE (01:05)
[2021-03-12] MEDS ORDERED: D5% in 0.45% NACL w KCl 20 MEQ/1,000 ML MLS IVC PRN (01:05)
[2021-03-12] MEDS ORDERED: Insulin Regular, Human 100 UNIT/ML IV PRN ×2 (01:05)
[2021-03-12] MEDS ORDERED: D5% in 0.45% NACL 1,000 ML IVC PRN (01:05)
[2021-03-12] MEDS ORDERED: *HR* Dextrose 50 % in Water (Vial) 50 ML VIAL IVP PRN ×2 (01:05→11:13)
[2021-03-12] MEDS ORDERED: 0.9 % Sodium Chloride 1,000 ML IV ONE (01:19)
[2021-03-12 01:28] LABS: Aspartate Amino Transferase 54 Units/L (13-39)
[2021-03-12 02:35] LABS: Amphetamine Screen,Urine Negative ng/mL (Cutoff=1000); Barbiturate Screen,Urine Negative ng/mL (Cutoff=200); Benzodiazepines Screen,Urine Negative ng/mL (Cutoff=200); Cannabinoid Screen,Urine Negative ng/mL (Cutoff = 50); Cocaine Screen,Urine Negative ng/mL (Cutoff= 300); Opiate Screen,Urine Negative ng/mL (Cutoff=300); Phencyclidine Screen,Urine Negative ng/mL (Cutoff=25)
[2021-03-12 02:36] LABS: Bilirubin,Urine Negative (Negative); Blood,Urine Negative (Negative); Clarity,Urine Clear (Clear); Color,Urine Colorless (Yellow); Glucose,Urine (UA) >=1000 mg/dL (Normal); Ketones,Urine 40 mg/dL (Negative); Leukocyte Esterase,Urine Negative (Negative); Mucus,Urine Few per lpf (None-Few); Nitrite,Urine Negative (Negative); Protein,Urine Negative (Neg-Trace); RBC,Urine 0-3 per hpf (0-3); Specific Gravity,Urine 1.025 (1.010-1.025); Squamous Epithelial Cell,Urine Few per hpf (None-Few); Urobilinogen,Urine Normal (Normal); WBC,Urine 15-30 per hpf (0-3)
[2021-03-12 03:02] LABS: Estimated Average Glucose 252 mg/dl; Hemoglobin A1C 10.4 %
[2021-03-12 03:07] LABS: Phosphorous 4.4 mg/dL (2.7-4.5)
[2021-03-12 03:36] LABS: Alanine Aminotransferase 50 Units/L (7-52); Albumin 3.6 g/dL (3.5-5.7); Albumin/Globulin Ratio 1.3 (1.1-2.2); Alkaline Phosphatase 165 Units/L (34-104); Aspartate Amino Transferase 80 Units/L (13-39); BUN/Creatinine Ratio 24 (6-26); Bilirubin,Total 0.4 mg/dL (0.3-1.0); Blood Urea Nitrogen 26 mg/dL (6-20); Calcium 8.5 mg/dL (8.6-10.3); Carbon Dioxide 10 mEq/L (23-29); Chloride 94 mEq/L (98-107); Globulin 2.7 g/dL (2.4-3.5); Glucose 791 mg/dL (70-105); Osmolality,Calculated 303 (280-300); Potassium 5.3 mEq/L (3.5-5.1); Sodium 125 mEq/L (136-145); Total Protein 6.3 g/dL (6.4-8.9); eGFR For African Americans > 60 (> 60); eGFR For Non-African Americans 56 (> 60)
[2021-03-12 03:52] LABS: Basophils % 0.6 %; Hematocrit 32.1 % (35.3-44.9); Hemoglobin 10.1 g/dL (11.5-15.4); Immature Granulocytes % 0.3 % (0-4); Lymphocytes # 0.9 K/mcL (0.6-4.6); Lymphocytes % 13.4 %; Mean Corpuscular HGB Conc 31.5 g/dL (31.6-35.5); Mean Corpuscular Hemoglobin 28.4 pg (28.0-33.3); Mean Corpuscular Volume 90.2 fL (83.0-100.0); Mean Platelet Volume 11.3 fL (9.4-12.4); Monocytes # 0.4 K/mcL (0.0-1.3); Monocytes % 6.1 %; Neutrophils # 5.3 K/mcL (1.6-8.9); Platelet Count 155 K/mcL (140-400); Red Blood Count 3.56 M/mcL (3.82-4.97); Red Cell Distribution Width 11.7 % (11.5-14.5); Segmented Neutrophils % 79.6 %; White Blood Count 6.7 K/mcL (4.3-11.1)
[2021-03-12 04:15] LABS: Adenovirus Not Detected (Not Detect); Bordetella Pertussis Not Detected (Not Detect); Chlamydophila pneumoniae Not Detected (Not Detect); Coronavirus 229E Not Detected (Not Detect); Coronavirus HKU1 Not Detected (Not Detect); Coronavirus NL63 Not Detected (Not Detect); Coronavirus OC43 Not Detected (Not Detect); Human Metapneumovirus Not Detected (Not Detect); Human Rhinovirus/Enterovirus Not Detected (Not Detect); Influenza A Subtype 2009 H1 Not Detected (Not Detect); Influenza B Not Detected (Not Detect); Mycoplasma pneumoniae Not Detected (Not Detect); Parainfluenza Virus 1 Not Detected (Not Detect); Parainfluenza Virus 2 Not Detected (Not Detect); Parainfluenza Virus 3 Not Detected (Not Detect); Parainfluenza Virus 4 Not Detected (Not Detect); Respiratory Syncytial Virus Not Detected (Not Detect); SARS-CoV-2 Not Detected (Not Detect)
[2021-03-12] MEDS: 0.45 % Sodium Chloride w/KCl 20 MEQ/1,000 ML MLS IVC PRN ×3 (05:03→09:43)
[2021-03-12] MEDS ORDERED: Sennosides/Docusate Sodium TABLET PO PRN (05:05)
[2021-03-12] MEDS ORDERED: *HR* OxyCODONE Immed Rel 5 MG TABLET PO PRN (05:05)
[2021-03-12] MEDS: *HR* Heparin 5,000 UNIT/ML VIAL SQ SCH ×2 (05:27→18:02)
[2021-03-12] MEDS ORDERED: *HR* Promethazine 25 MG/ML VIAL IM PRN (05:42)
[2021-03-12 07:00] LABS: BUN/Creatinine Ratio 23 (6-26); Blood Urea Nitrogen 22 mg/dL (6-20); Calcium 8.3 mg/dL (8.6-10.3); Carbon Dioxide 19 mEq/L (23-29); Chloride 101 mEq/L (98-107); Glucose 487 mg/dL (70-105); Osmolality,Calculated 297 (280-300); Potassium 4.4 mEq/L (3.5-5.1); Sodium 131 mEq/L (136-145); eGFR For African Americans > 60 (> 60); eGFR For Non-African Americans > 60 (> 60)
[2021-03-12 09:17] LABS: BUN/Creatinine Ratio 22 (6-26); Blood Urea Nitrogen 18 mg/dL (6-20); Calcium 8.1 mg/dL (8.6-10.3); Carbon Dioxide 21 mEq/L (23-29); Chloride 102 mEq/L (98-107); Glucose 331 mg/dL (70-105); Osmolality,Calculated 285 (280-300); Potassium 5.3 mEq/L (3.5-5.1); Sodium 130 mEq/L (136-145); eGFR For African Americans > 60 (> 60); eGFR For Non-African Americans > 60 (> 60)
[2021-03-12] MEDS ORDERED: D5% in Water 1,000 ML IVC PRN (11:13)
[2021-03-12] MEDS ORDERED: Dextrose Gel 15 GM/37.5 ML TUBE PO PRN ×2 (11:13)
[2021-03-12] MEDS: *HR* OxyCODONE Immed Rel 5 MG TABLET PO PRN (11:24)
[2021-03-12] MEDS: Insulin LISPRO 300 UNITS/3 ML VIAL SUBQ SCH ×2 (12:01→16:30)
[2021-03-12 12:08] LABS: BUN/Creatinine Ratio 19 (6-26); Blood Urea Nitrogen 14 mg/dL (6-20); Calcium 7.9 mg/dL (8.6-10.3); Carbon Dioxide 24 mEq/L (23-29); Chloride 104 mEq/L (98-107); Glucose 164 mg/dL (70-105); Osmolality,Calculated 280 (280-300); Potassium 4.4 mEq/L (3.5-5.1); Sodium 133 mEq/L (136-145); eGFR For African Americans > 60 (> 60); eGFR For Non-African Americans > 60 (> 60)
[2021-03-12 12:21] LABS: VBG HCO3 23 mEq/L (21-27); VBG PCO2 45 mmHg (41-51); VBG PH 7.32 pH Units (7.32-7.42); VBG PO2 86 mmHg (25-50)
[2021-03-12] MEDS ORDERED: Insulin DETEMIR 100 UNIT/ML X5UNITS SUBQ ONE (12:35)
[2021-03-12] MEDS ORDERED: Acetaminophen IV 1,000 MG/100 ML BAG IVPB ONE (15:40)
[2021-03-12] MEDS ORDERED: polyethylene glycoL 3350 17 GM POWD.PACK PO SCH (15:45)
[2021-03-12] MEDS ORDERED: Metoclopramide 10 MG/2 ML VIAL IVP PRN (16:38)
[2021-03-12] MEDS: Sennosides/Docusate Sodium TABLET PO SCH (20:01)
[2021-03-12] MEDS: polyethylene glycoL 3350 17 GM POWD.PACK PO SCH (20:02)
[2021-03-12] MEDS: PrednisoLONE Acetate 1% Opth 5 ML BOTTLE LEFT EYE SCH (20:02)
[2021-03-12] MEDS ORDERED: traZODone 50 MG TABLET PO SCH (21:00)
[2021-03-12] MEDS ORDERED: Insulin DETEMIR 100 UNIT/ML X5UNITS SUBQ SCH (21:00)
[2021-03-13] MEDS: Insulin LISPRO 300 UNITS/3 ML VIAL SUBQ SCH ×3 (00:32→12:35)
[2021-03-13 04:07] LABS: Hematocrit 31.8 % (35.3-44.9); Hemoglobin 10.5 g/dL (11.5-15.4); Mean Corpuscular Hemoglobin 28.7 pg (28.0-33.3); Mean Corpuscular Volume 86.9 fL (83.0-100.0); Mean Platelet Volume 10.9 fL (9.4-12.4); Platelet Count 160 K/mcL (140-400); Red Blood Count 3.66 M/mcL (3.82-4.97); Red Cell Distribution Width 12.2 % (11.5-14.5); White Blood Count 4.6 K/mcL (4.3-11.1)
[2021-03-13 04:08] LABS: VBG Ionized Calcium 1.22 mmol/L (1.15-1.35)
[2021-03-13 04:17] LABS: % Iron Saturation 12 % (15-50); Iron 42 mcg/dL (50-170); Transferrin 256 mg/dL (203-362)
[2021-03-13 04:34] LABS: Ferritin 23 ng/mL (10-120)
[2021-03-13 05:15] LABS: BUN/Creatinine Ratio 14 (6-26); Blood Urea Nitrogen 10 mg/dL (6-20); Calcium 8.6 mg/dL (8.6-10.3); Carbon Dioxide 26 mEq/L (23-29); Chloride 108 mEq/L (98-107); Glucose 136 mg/dL (70-105); Magnesium 1.8 mg/dL (1.6-2.6); Osmolality,Calculated 289 (280-300); Phosphorous 2.6 mg/dL (2.7-4.5); Potassium 4.1 mEq/L (3.5-5.1); Sodium 139 mEq/L (136-145); eGFR For African Americans > 60 (> 60); eGFR For Non-African Americans > 60 (> 60)
[2021-03-13] MEDS: *HR* Heparin 5,000 UNIT/ML VIAL SQ SCH (05:28)
[2021-03-13 07:09] VITALS: BP 127/84
[2021-03-13] MEDS: Sennosides/Docusate Sodium TABLET PO SCH (07:30)
[2021-03-13] MEDS: polyethylene glycoL 3350 17 GM POWD.PACK PO SCH (07:31)
[2021-03-13] MEDS: PrednisoLONE Acetate 1% Opth 5 ML BOTTLE LEFT EYE SCH (07:31)
[2021-03-13] MEDS: *HR* OxyCODONE Immed Rel 5 MG TABLET PO PRN (08:47)
[2021-03-13] MEDS ORDERED: Venlafaxine XR (24 HR) 75 MG CAP.ER.24H PO SCH (09:00)
== END 2021-03-13 15:35 | disposition home or self-care (01) ==
LOC: EMEROOARM 22:29 → ICNU 22:29 → 2ANU 03-12 15:20
PROVIDERS: ADMIT Family Medicine; ATTEND Family Medicine